=== PATIENT | female | born 1970 | race Caucasian/White ===

== ENCOUNTER → 2016-03-11 | Outpatient (CLI) | payer OTHER ==
[~2016-03-11] MED LIST: ACET-1487 PO; AZITTAB PO; FLUT0.15 NAE; GUAI100L PO; GUAI1LIQ7 PO; HYDR5SYP11 PO; LORA10TA5 PO; MULTTAB58 PO; PRED20TA PO; PRED50TA PO; TYLOTC500 PO
--- NOTE | 2016-03-11 15:48 | MAMMOGRAPHY REPORT ---
UNILATERAL RIGHT DIGITAL DIAGNOSTIC MAMMOGRAM TOMOSYNTHESIS AND TARGETED RIGHT ULTRASOUND: 03/11/2016 CLINICAL HISTORY: Callback from screening mammogram for right breast asymmetry. TECHNIQUE: Breast tomosynthesis in addition to standard 2D mammography was performed. Right CC and MLO 2-D and tomosynthesis images were obtained. COMPARISON: Comparison is made to exams dated: 02/28/2016 mammogram, 02/25/2015 mammogram, 4 mammogram, 02/26/2012 mammogram, and 02/03/2012 mammogram - [facility]. BREAST COMPOSITION: There are scattered areas of fibroglandular density in the right breast. FINDINGS: The previously described asymmetry seen within the right medial breast effaces on the add itional spot compression views, and has the appearance of normal overlapping fibroglandular tissue o n the additional views. Lobulated circumscribed 9 mm mass seen within the right lower inner quadran t more anteriorly is stable compared to prior exams including the 2011 exam. Targeted ultrasound was performed of the right medial breast in the region of the mammographic asymm etry. No suspicious masses or other suspicious sonographic abnormalities are evident. No correlate for the mammographic asymmetry is seen. A 7 x 7 mm circumscribed anechoic mass with thin internal septations is noted in the right breast at 5:00, 2 cm from the nipple, consistent with a benign cyst . This correlates with the stable mammographic mass. IMPRESSION: ACR BI-RADS CATEGORY 2: BENIGN, TARGETED ULTRASOUND ACR BI-RADS CATEGORY 2: BENIGN The right medial breast asymmetry effaces on the additional views, without corresponding sonographic abnormality evident. The asymmetry is benign and compatible with normal overlapping fibroglandular tissue. There is no mammographic or targeted sonographic evidence of malignancy. A 1 year screenin g mammogram is recommended. The patient has been verbally notified of the results. Approximately 10% of breast cancers are not detected with mammography. A negative mammographic repor t should not delay biopsy if a clinically suggestive mass is present. Citlalli Harris M.D. /:03/11/2016 14:37:54 Fish Cutter: Citlalli Harris MD, [facility] letter sent: Normal /2 BI-RADS Code: ACR BI-RADS Category 2: Benign Ultrasound BI-RADS: ACR BI-RADS Category 2: Benign
== END | disposition home or self-care (01) ==
LOC: C.MAMM 14:13
PROVIDERS: ATTEND Family Medicine
DX: R92.8 Other abnormal and inconclusive findings on diagnostic imaging of breast (principal)

== ENCOUNTER 2016-03-15 22:15 | Emergency (ER) | payer OTHER ==
[~2016-03-15] VITALS: Ht 160 cm; Wt 80.7 kg
[~2016-03-15 22:15] MED LIST changes: -ACET-1487 PO; -AZITTAB PO; -FLUT0.15 NAE; -GUAI1LIQ7 PO; -HYDR5SYP11 PO; -LORA10TA5 PO; -MULTTAB58 PO; -PRED20TA PO; -PRED50TA PO; -TYLOTC500 PO
[2016-03-15 22:18] VITALS: TEMP 37.5; Ht 160 cm; Wt 80.7 kg
[2016-03-15] MEDS ORDERED: ALBUT/IPRATROP 3MG/0.5MG NEB 3 ML VIAL INH STA (22:39)
[2016-03-15] MEDS ORDERED: SODIUM CHLORIDE 0.9% 1000ML 1,000 ML IV STA (22:39)
[2016-03-15] MEDS ORDERED: ACETAMINOPHEN 325 MG TAB PO STA (22:39)
[2016-03-15] MEDS ORDERED: KETOROLAC TROMETHAMINE 30 MG/ML VIAL IV STA (22:52)
--- NOTE | 2016-03-15 22:57 | EMERGENCY ROOM VISIT NOTE ---
History Report prepared by Pravin: Chan Bermudez Under the Supervision of: Dr. Rachel Metz M.D. First contact with patient: 22:39 Chief Complaint: CARDIAC ASSESSMENT Stated Complaint: BAD COLD, CHEST PAIN History of Present Illness The patient is a 46 year old female who presents to the Emergency Room with complaints of worsening chest pain and flu-like symptoms that began several days prior to arrival. The patient states that she has had pneumonia in the past and feels as though this is a similar episode. She also has a persistent cough that has caused pain in her throat and abdomen. The patient also notes having a fever of 101 today. She is a smoker that smokes 0.5 packs per day, and has has a flu shot this year. She took a dosage of Mucinex at 2030 this evening. 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 A total of 10 systems reviewed and were otherwise negative. Past Medical & Surgical Surgical Problems: (1) History of total hip replacement Pneumonia Family History Cancer Diabetes mellitus Heart disease Hypertension Social History Smoking Status: Current Every Day Smoker Alcohol Use: none Marital Status: single Occupation Status: disabled Current/Historical Medications Scheduled Multiple Vitamin (Multivitamin), 1 TAB PO DAILY Prednisone (Prednisone), 40 MG PO DAILY Scheduled PRN Acetaminophen (Tylenol), 1,000 MG PO Q6H PRN for Pain or Fever Acetaminophen (Tylenol Arthritis Ext Rel), 1,300 MG PO UD PRN for Pain Fluticasone Propionate (Nasal) (Flonase Allergy Relief), 2 SPRAYS KINGA DAILY PRN for Allergy Symptoms Guaifenesin (Mucinex Chest Congestion), 1 DOSE PO UD PRN for Congestion Loratadine (Claritin), 10 MG PO DAILY PRN for Nasal Congestion Allergies Coded Allergies: No Known Allergies (Verified , 11/07/03) Physical Exam Vital Signs Date Time Temp Pulse Resp B/P Pulse Ox O2 Delivery O2 Flow Rate FiO2 03/16/16 01:10 71 18 131/81 96 03/16/16 00:17 79 18 147/91 95 Room Air 03/15/16 23:16 85 03/15/16 22:18 37.5 89 24 181/86 95 Room Air Physical Exam Vital signs reviewed. General: Dry cough on exam. HEENT: No scleral icterus, PERRLA, neck supple. Atraumatic. Cardiovascular: Regular rate and rhythm, no extra sounds. Pulmonary: Wheezing throughout lung finley bilaterally, normal work of breathing. Abdomen: Soft, nontender, nondistended, positive bowel sounds. Musculoskeletal: Atraumatic, no peripheral edema. Neurologic: Patient awake alert and oriented x 3, full strength in all 4 extremities. Cranial nerves 2 through 12 grossly intact. Skin: Warm, dry, no rash Medical Decision & Procedures ER Provider Diagnostic Interpretation: X-ray results as stated below per my interpretation and radiologist interpretation. Other radiology results as stated below per my review and radiologist interpretation: SINGLE VIEW CHEST CLINICAL HISTORY: Cough and fever FINDINGS: An AP, portable, upright chest radiograph is compared to study dated 04/30/2014. The examination is degraded by portable technique and patient rotation. The heart is top normal for projection. There is mild atherosclerotic calcification of the thoracic aorta. Chronic interstitial thickening is similar to previous. No airspace consolidation or pleural effusion is identified. No pneumothorax is seen. The skeletal structures appear osteopenic. The bony thorax is grossly intact. IMPRESSION: No acute cardiopulmonary abnormality. Electronically signed by: Andres Pappas M.D. 03/15/2016 11:00 PM Dictated Date/Time: 03/15/2016 10:58 PM Laboratory Results 03/15/16 23:10 Red Blood Count 3.89, Mean Corpuscular Volume 94.1, Mean Corpuscular Hemoglobin 32.1, Mean Corpuscular Hemoglobin Concent 34.2, Mean Platelet Volume 9.9, Neutrophils (%) (Auto) 66.7, Lymphocytes (%) (Auto) 25.1, Monocytes (%) (Auto) 7.6, Eosinophils (%) (Auto) 0.2, Basophils (%) (Auto) 0.3, Neutrophils # (Auto) 5.76, Lymphocytes # (Auto) 2.17, Monocytes # (Auto) 0.66, Eosinophils # (Auto) 0.02, Basophils # (Auto) 0.03 03/15/16 23:10 Test 03/15/16 23:10 03/15/16 23:15 White Blood Count 8.65 K/uL (4.8-10.8) Red Blood Count 3.89 M/uL (4.2-5.4) Hemoglobin 12.5 g/dL (12.0-16.0) Hematocrit 36.6 % (37-47) Mean Corpuscular Volume 94.1 fL (80-100) Mean Corpuscular Hemoglobin 32.1 pg (25-34) Mean Corpuscular Hemoglobin Concent 34.2 g/dl (32-36) Platelet Count 264 K/uL (130-400) Mean Platelet Volume 9.9 fL (7.4-10.4) Neutrophils (%) (Auto) 66.7 % Lymphocytes (%) (Auto) 25.1 % Monocytes (%) (Auto) 7.6 % Eosinophils (%) (Auto) 0.2 % Basophils (%) (Auto) 0.3 % Neutrophils # (Auto) 5.76 K/uL (1.4-6.5) Lymphocytes # (Auto) 2.17 K/uL (1.2-3.4) Monocytes # (Auto) 0.66 K/uL (0.11-0.59) Eosinophils # (Auto) 0.02 K/uL (0-0.5) Basophils # (Auto) 0.03 K/uL (0-0.2) RDW Standard Deviation 43.1 fL (36.4-46.3) RDW Coefficient of Variation 12.7 % (11.5-14.5) Immature Granulocyte % (Auto) 0.1 % Immature Granulocyte # (Auto) 0.01 K/uL (0.00-0.02) Anion Gap 10.0 mmol/L (3-11) Est Creatinine Clear Calc Drug Dose 94.5 ml/min Estimated GFR () 111.8 Estimated GFR (Non- 96.5 BUN/Creatinine Ratio 20.4 (10-20) Calcium Level 8.7 mg/dl (8.5-10.1) Total Bilirubin 0.6 mg/dl (0.2-1) Direct Bilirubin 0.1 mg/dl (0-0.2) Aspartate Amino Transf (AST/SGOT) 15 U/L (15-37) Alanine Aminotransferase (ALT/SGPT) 18 U/L (12-78) Alkaline Phosphatase 110 U/L (45-117) Total Protein 7.4 gm/dl (6.4-8.2) Albumin 3.7 gm/dl (3.4-5.0) Influenza Type A Antigen Neg for Influ A (NEG) Influenza Type B Antigen Neg for Influ B (NEG) Laboratory results per my review. Medications Administered Medications (Trade) Dose Ordered Sig/Claudia Route Start Time Stop Time Status Last Admin Dose Admin Albuterol/ Ipratropium 3 ml 3 ml NOW STAT INH 03/15/16 22:39 03/15/16 22:41 DC 03/15/16 22:56 3 ML Sodium Chloride (Nss 1000ml) 1,000 ml @ 200 mls/hr Q5H STAT IV 03/15/16 22:39 03/16/16 01:32 DC 03/15/16 22:39 200 MLS/HR Ketorolac Tromethamine (Toradol Inj) 30 mg NOW STAT IV 03/15/16 22:52 03/15/16 22:53 DC 03/15/16 23:28 30 MG Methylprednisolone Sodium Succinate (Solu-Medrol IV) 125 mg NOW STAT IV 03/16/16 00:24 03/16/16 00:25 DC 03/16/16 00:40 125 MG Albuterol (Ventolin Hfa Inhaler) 2 puffs NOW ONCE INH 03/16/16 00:30 03/16/16 00:31 DC 03/16/16 00:40 2 PUFFS ED Course 2238: Past medical records reviewed. The patient was evaluated in room B11. A complete history and physical examination was performed. 2239: Ordered Sodium Chloride 1000 mL @ 200 mL/hr IV, Acetaminophen 650 mg PO, Albuterol 3 mL INH. 2252: Ordered Toradol 30 mg IV. 0024: Ordered Frances-Medrol 125 mg IV. 0030: Ordered Albuterol 2 puffs INH. 0102: Upon reevaluation, the patient appeared to have improvement of his symptoms. I discussed findings with him. He verbalized agreement of the treatment plan. The patient was discharged home. Medical Decision Differential diagnosis: Etiologies such as viral syndrome, otitis, pharyngitis, pneumonia, influenza, meningitis, urinary tract infection, sepsis, bacteremia, as well as others were entertained. This patient was evaluated and appeared to be in no significant distress. IV access was obtained and laboratory work was drawn. Patient was placed on the irish moss operator and found to be in a normal sinus rhythm. Patient was given a DuoNeb treatment. She was medicated with IV Toradol for her discomfort, IV Solu -Medrol for the wheezing. Chest x-ray reveals no evidence of focal lung consolidation or failure. Patient was feeling significantly improved. She was discharged to follow-up with her primary care provider. She will return to the ER for worsening of symptoms or any medical concerns. Impression Primary Impression: Febrile illness, acute Additional Impression: Reactive airway disease Scribe Attestation The scribe's documentation has been prepared under my direction and personally reviewed by me in its entirety. I confirm that the note above accurately reflects all work, treatment, procedures, and medical decision making performed by me. Departure Information Dispostion Home / Self-Care Prescriptions Prednisone (Prednisone) 20 Mg Tab 40 MG PO DAILY, #8 TAB Prov: Rachel Metz M.D. 03/16/16 Referrals No Doctor, Assigned (PCP) Forms IMPORTANT VISIT INFORMATION Patient Instructions [facility] Additional Instructions Diagnosis: Febrile illness, reactive airway disease Tylenol 650 mg every 6 hours as needed for pain or fever. Prednisone 40 mg daily for 4 more days. Albuterol 2 puffs every 4 hours as needed for wheezing or cough. Follow-up with your physician within 2 days for reevaluation. Return to the ER for worsening of symptoms or any medical concerns. Problem Qualifiers Additional Impression: Reactive airway disease Asthma severity: mild persistent Asthma complication type: with acute exacerbation Qualified Codes: J45.31 - Mild persistent asthma with (acute) exacerbation
--- NOTE | 2016-03-15 23:02 | DIAGNOSTIC IMAGING REPORT ---
SINGLE VIEW CHEST CLINICAL HISTORY: Cough and fever FINDINGS: An AP, portable, upright chest radiograph is compared to study dated 04/30/2014. The examination is degraded by portable technique and patient rotation. The heart is top normal for projection. There is mild atherosclerotic calcification of the thoracic aorta. Chronic interstitial thickening is similar to previous. No airspace consolidation or pleural effusion is identified. No pneumothorax is seen. The skeletal structures appear osteopenic. The bony thorax is grossly intact. IMPRESSION: No acute cardiopulmonary abnormality. Electronically signed by: Andres Pappas M.D. 03/15/2016 11:00 PM Dictated Date/Time: 03/15/2016 10:58 PM
[2016-03-15 23:26] LABS: BASO % 0.3 %; BASO ABS # 0.03 K/uL (0-0.2); COMPLETE YES; EOS % 0.2 %; HEMATOCRIT 36.6 % (37-47); IG% 0.1 %; LYMPH % 25.1 %; LYMPH ABS # 2.17 K/uL (1.2-3.4); MEAN CELL VOLUME 94.1 fL (80-100); MEAN CORPUSCULAR HEMOGLOBIN 32.1 pg (25-34); MEAN CORPUSCULAR HGB CONC 34.2 g/dl (32-36); MEAN PLATELET VOLUME 9.9 fL (7.4-10.4); MONO % 7.6 %; NEUT % 66.7 %; PLATELET COUNT 264 K/uL (130-400); RED BLOOD COUNT 3.89 M/uL (4.2-5.4); WHITE BLOOD COUNT 8.65 K/uL (4.8-10.8)
[2016-03-15 23:50] LABS: BUN/CREATININE RATIO 20.4 (10-20); CALCIUM 8.7 mg/dl (8.5-10.1); CREATININE 0.74 mg/dl (0.60-1.20); POTASSIUM 3.9 mmol/L (3.5-5.1)
[2016-03-16] MEDS ORDERED: METHYLPREDNISOLONE 125 MG VIAL IV STA (00:24)
[2016-03-16] MEDS ORDERED: ALBUTEROL HFA 8 GM INHALER INH ONE (00:30)
[2016-03-16] MEDS ORDERED: PRED20TA PO (01:00)
[2016-03-16 01:10] VITALS: BP 131/81; PULSE 71; O2SAT 96
[2016-09-27] MEDS ORDERED: LORA10TA5 PO (14:59)
[2016-09-27] MEDS ORDERED: MULTTAB58 PO (14:59)
[2016-09-27] MEDS ORDERED: TYLOTC500 PO (14:59)
[2016-09-27] MEDS ORDERED: ACET-1487 PO (14:59)
== END 2016-03-16 01:11 | disposition home or self-care (01) ==
LOC: C.EDB 22:16
DX: R50.9 Fever, unspecified (principal); J45.31 Mild persistent asthma with (acute) exacerbation; F17.210 Nicotine dependence, cigarettes, uncomplicated

== ENCOUNTER 2016-09-27 19:11 | Emergency (ER) | payer OTHER ==
[~2016-09-27] VITALS: Ht 157.5 cm; Wt 77.0 kg
[~2016-09-27 19:11] MED LIST changes: +ACET-1487 PO; -GUAI100L PO; +LORA10TA5 PO; +MULTTAB58 PO; +TYLOTC500 PO
[2016-09-27 19:20] VITALS: TEMP 36.4; Ht 157.5 cm; Wt 77.0 kg
[2016-09-27] MEDS ORDERED: ALBUT/IPRATROP 3MG/0.5MG NEB 3 ML VIAL INH STA (19:33)
[2016-09-27] MEDS ORDERED: HYDROCODONE/HOMATROPINE SYRUP 5MG/1.5MG 5ML UDP PO STA (19:33)
[2016-09-27] MEDS ORDERED: DEXAMETHASONE SOD INJ 10 MG/ML VIAL IM ONE (19:45)
--- NOTE | 2016-09-27 20:12 | DIAGNOSTIC IMAGING REPORT ---
CHEST 2 VIEWS ROUTINE CLINICAL HISTORY: cough x 1 week dyspnea COMPARISON STUDY: 03/15/2016 FINDINGS: The bones soft tissues and hemidiaphragms are normal. The cardiomediastinal silhouette is normal. The lungs are clear. The pulmonary vasculature is normal. IMPRESSION: Negative chest. The above report was generated using voice recognition software. It may contain grammatical, syntax or spelling errors. Electronically signed by: Talon Cortes M.D. 09/27/2016 8:11 PM Dictated Date/Time: 09/27/2016 8:10 PM
[2016-09-27] MEDS ORDERED: HYCODAN 60ML BOTTLE HOMEPACK PO ONE (20:30)
[2016-09-27] MEDS ORDERED: PRED50TA PO (20:33)
[2016-09-27] MEDS ORDERED: AZITTAB PO (20:33)
[2016-09-27] MEDS ORDERED: HYDR5SYP11 PO (20:33)
--- NOTE | 2016-09-27 20:36 | EMERGENCY ROOM VISIT NOTE ---
ED Visit Note First contact with patient: 19:23 CHIEF COMPLAINT: Cough and upper respiratory symptoms 1 week HISTORY OF PRESENT ILLNESS: Patient is a 46-year-old white female who presents to the emergency department for evaluation of a persistent cough 1 week. She states that she has been sick with a "bug" one week ago. She reports stuffy, runny nose, dry, nonproductive cough, body and muscle aches and a fever of 101.6 F maximum. Fever broke after a few days, she is now left with a deep, productive cough. She was seen at [facility] about 3 days ago and given an albuterol inhaler which she has been taking 2 puffs of every 4 hours. She forgot to use it this afternoon however. She is also using a cough medication. She reports the cough is productive of sometimes clear, sometimes greenish yellow sputum. She was told to have a chest x-ray if her symptoms are not improving. Her chest feels tight, but she does not have any pain. She reports that she was around her cousin who accompanies her today, who was also sick with similar symptoms. The patient is a smoker. She does not have a history of asthma, but has had bronchitis and pneumonia in the past. REVIEW OF SYSTEMS: Review of systems as per HPI. All other systems reviewed were negative. 10 systems reviewed. PMH: Electronic medical records are reviewed and summarized as above/below. See Problem List. SOCIAL HISTORY: Patient lives at home. She is disabled due to her RA. She smokes 10 cigarettes daily, drinks alcohol socially. PHYSICAL EXAM: Vital Signs: Reviewed Nurse's notes. Temperature 36.4C orally. Oxygen saturation 99% on room air. MENTAL STATUS: Well-appearing 46-year-old white female who is awake and alert and in no acute distress. She is able speak in full sentences. No conversational dyspnea. HEAD: Atraumatic, without temporal or scalp tenderness. EYES: PERRL, EOMI, no discharge or injection. EARS: Tympanic membranes intact, not inflamed, have normal contour. External canals clear. NOSE: Nares patent, turbinates edematous and boggy with clear rhinorrhea. MOUTH: Mucous membranes moist, no lesions, tongue and gums appear normal. THROAT: No pharyngeal injection, exudates, or tonsillar hypertrophy. Airway is patent. NECK: Supple, nontender, no lymphadenopathy. HEART: Regular rate and rhythm without murmurs, ectopy, gallops, or rubs. LUNGS: Clear to auscultation and breath sounds equal, no wheezes, rales, or rhonchi. SKIN: Normal. NEUROLOGICAL: Sensory and motor functions grossly intact. Normal gait. EMERGENCY DEPARTMENT COURSE: The patient was seen and evaluated as above. Her old records are reviewed. Patient was given a DuoNeb treatment, Hycodan 10 mL' s orally and Decadron 10 mg IM. Chest x-ray was obtained and was unremarkable. Patient was made aware of the results of her chest x-ray. I discussed with her that I suspected that her illness was still likely part of the viral course. Continued supportive care measures were discussed. Patient was advised to continue the inhaler, she'll be placed on a short course of oral prednisone, and was given a prescription for Hycodan. She was also given a prescription for a Z-Zeb that she can start in a few days if she is not feeling any better. She was advised to follow-up with her PCP if her symptoms are not improving and to return to the emergency department for worsening symptoms. Differential diagnoses includes URI, bronchitis, pneumonia, reactive airway disease, asthma exacerbation, allergic rhinitis, sinusitis, otitis media, among others. Medication reconciliation: I attest that I have personally reviewed the patient' s current medication list. Blood pressure screening: Patient was found to have an elevated blood pressure and was referred to their primary doctor for recheck and further treatment. CHEST 2 VIEWS ROUTINE CLINICAL HISTORY: cough x 1 week dyspnea COMPARISON STUDY: 03/15/2016 FINDINGS: The bones soft tissues and hemidiaphragms are normal. The cardiomediastinal silhouette is normal. The lungs are clear. The pulmonary vasculature is normal. IMPRESSION: Negative chest. Problem List Medical Problems: (1) Febrile illness, acute Status: Resolved (2) Febrile illness, acute Status: Resolved (3) Pneumonia Status: Resolved (4) Reactive airway disease Status: Resolved (5) Reactive airway disease Status: Resolved (6) Rheumatoid Arthritis Status: Chronic (7) SOB (shortness of breath) Status: Resolved Surgical Problems: (1) History of total hip replacement Status: Resolved (2) Knee Joint Replacement Status Status: Resolved Current/Historical Medications Scheduled Azithromycin (Zithromax Z-Zeb), 0 PO UD Multiple Vitamin (Multivitamin), 1 TAB PO DAILY Prednisone (Prednisone), 50 MG PO DAILY Scheduled PRN Acetaminophen (Tylenol), 1,000 MG PO Q6H PRN for Pain or Fever Acetaminophen (Tylenol Arthritis Ext Rel), 1,300 MG PO UD PRN for Pain Fluticasone Propionate (Nasal) (Flonase Allergy Relief), 2 SPRAYS KINGA DAILY PRN for Allergy Symptoms Guaifenesin (Mucinex Chest Congestion), 1 DOSE PO UD PRN for Congestion Hydrocodone W/ Homatropine (Hycodan 5/1.5MG 5 Ml), 10 ML PO Q4H PRN for Cough Loratadine (Claritin), 10 MG PO DAILY PRN for Nasal Congestion Allergies Coded Allergies: Marion (Verified Allergy, Intermediate, Hives, 09/27/16) Vital Signs Date Time Temp Pulse Resp B/P (MAP) Pulse Ox O2 Delivery O2 Flow Rate FiO2 09/27/16 20:44 62 22 143/91 98 Room Air 09/27/16 19:23 99 Room Air 09/27/16 19:20 36.4 78 16 198/103 99 Room Air Medications Administered Medications (Trade) Dose Ordered Sig/Claudia Route Start Time Stop Time Status Last Admin Dose Admin Dexamethasone Sodium Phosphate (Decadron Inj) 10 mg NOW ONCE IM 09/27/16 19:45 09/27/16 19:46 DC 09/27/16 19:42 10 MG Hydrocodone Bit/ Homatropine Methylb (Hycodan Syrup) 10 ml NOW STAT PO 09/27/16 19:33 09/27/16 19:36 DC 09/27/16 19:41 10 ML Albuterol/ Ipratropium (Duoneb) 3 ml NOW STAT INH 09/27/16 19:33 09/27/16 19:36 DC 09/27/16 19:42 3 ML Hydrocodone Bit/ Homatropine Methylb (Hycodan Elix Homepack 5/1.5MG/ 5ML) 1 homepack UD ONCE PO 09/27/16 20:30 09/27/16 20:31 DC 09/27/16 20:36 1 HOMEPACK Departure Information Impression Primary Impression: Upper respiratory infection Prescriptions Azithromycin (ZITHROMAX Z-ZEB) 250 Mg Tab 0 PO UD, #1 PKT 2 TABS DAY 1, THEN 1 TAB DAILY FOR 4 DAYS Prov: Andreina Rosen PA 09/27/16 Hydrocodone W/ Homatropine (HYCODAN 5/1.5MG 5 ML) 1 Syp Syp 10 ML PO Q4H Y for Cough, #100 ML For Initial Treatment Prov: Andreina Rosen PA 09/27/16 Prednisone (Prednisone) 50 Mg Tab 50 MG PO DAILY for 4 Days, #4 TAB Prov: Andreina Rosen PA 09/27/16 Referrals Lopez Chery M.D. (MEDICAL) (PCP) Patient Instructions My [facility] Additional Instructions DO NOT drive, drink alcohol, operate machinery, or perform dangerous activities today. You were given medications in the ER that can affect your ability to safely function or operate a vehicle. Prednisone 50mg: Once daily until the prescription is finished. It is best to take this earlier in the day as some patients note occasional difficulty falling asleep when taken in the late evening. Acetaminophen(Tylenol) may be used for fever or pain. Use 1000mg every six hours as needed. Avoid using more than 3000mg in a 24 hour period. (AND/OR) Ibuprofen(Motrin, Advil) may be used for fever or pain. Use 600mg every six hours as needed. Take with food. Avoid using more than 2400mg in a 24 hour period. Do not use 2400mg per day for more than three consecutive days without physician direction. Prolonged inappropriate use can lead to stomach upset or ulcers. Pseudoephedrine(Sudaphed): 30-60mg every 6 hours as needed for nasal congestion. Do not take this with other stimulant products or supplements. Guaifenesin (Mucinex) : Take 1200 mg every 12 hours as needed for nasal/chest congestion, to help thin secretions. Albuterol Inhaler: Take 2 puffs every 4 hours for 5-7 days, then as needed. Hycodan cough syrup: use 5-10 mL every six hours only as needed for severe cough. It is best for use at night since it will cause sedation. This is a narcotic medication. Avoid alcohol, operating machinery or dangerous equipment , working on ladders or roofs, DRIVING, or situations where being under the influence may be dangerous. It is recommended to use an [id number] stool softener such as Colace, 100mg twice daily while taking this medication to avoid constipation. Rest and drink plenty of fluids. Wash your hands after nose blowing, sneezing, or coughing. Most germs are spread through contact, therefore improper hygiene may result in your close contacts and loved ones becoming ill just like you. Avoid strenuous activity until your symptoms resolve and your breathing returns to normal. Continue current medications. Return to the ER for severe headache, neck stiffness, chest pain, difficulty breathing, fevers, vomiting, worsening of your condition, or as needed. Follow up with your primary physician this week for a recheck of your current condition. If your symptoms are not improved by Wednesday or , fill and take the prescription for Azithromycin(Zithromax) 250mg: Take one a day for 4 additional days. All antibiotics can cause diarrhea. If this occurs and you feel worse or it does not resolve in 1-2 days follow up with your doctor or return to the Emergency Department as this could be signs of serious underlying problems. Any medication can cause an allergic reaction, stop the pills immediately and return to the ER for rash, hives, breathing difficulties, or swelling.
[2016-09-27 20:44] VITALS: BP 143/91; PULSE 62; O2SAT 98
[2016-09-27] MEDS ORDERED: FLUT0.15 NAE (23:01)
[2016-09-27] MEDS ORDERED: GUAI1LIQ7 PO (23:01)
== END 2016-09-27 20:46 | disposition home or self-care (01) ==
LOC: C.EDB 19:12
DX: J06.9 Acute upper respiratory infection, unspecified (principal); R05 Cough; R50.9 Fever, unspecified; M06.9 Rheumatoid arthritis, unspecified; J45.909 Unspecified asthma, uncomplicated; Z79.899 Other long term (current) drug therapy; Z87.01 Personal history of pneumonia (recurrent); F17.200 Nicotine dependence, unspecified, uncomplicated

== ENCOUNTER → 2017-03-30 | Outpatient (CLI) | payer OTHER ==
[~2017-03-30] MED LIST changes: +FLUT0.15 NAE; +GUAI1LIQ7 PO; -LORA10TA5 PO; +LORA10TA6 PO
--- NOTE | 2017-03-31 15:22 | MAMMOGRAPHY REPORT ---
BILATERAL DIGITAL SCREENING MAMMOGRAM TOMOSYNTHESIS WITH CAD: 03/30/2017 CLINICAL HISTORY: Routine screening. Patient has no complaints. TECHNIQUE: Breast tomosynthesis in addition to standard 2D mammography was performed. Current study was also evaluated with a Computer Aided Detection (CAD) system. COMPARISON: Comparison is made to exams dated: 03/11/2016 ultrasound, 02/28/2016 mammogram, 5 mammogram, 02/05/2014 mammogram, 02/26/2012 mammogram, and 02/03/2012 mammogram - [facility]. BREAST COMPOSITION: There are scattered areas of fibroglandular density in both breasts. FINDINGS: No suspicious masses, calcifications, or areas of architectural distortion are noted in ei ther breast. There has been no significant interval change compared to prior exams. IMPRESSION: ACR BI-RADS CATEGORY 1: NEGATIVE There is no mammographic evidence of malignancy. A 1 year screening mammogram is recommended. The pa tient will receive written notification of the results. Approximately 10% of breast cancers are not detected with mammography. A negative mammographic report should not delay biopsy if a clinically suggestive mass is present. Citlalli Harris M.D. ah/:03/30/2017 15:06:03 Business Asst: Stephania ALVARADO(Nikolas)([place]), [facility] letter sent: Normal 1/2 BI-RADS Code: ACR BI-RADS Category 1: Negative
== END | disposition home or self-care (01) ==
LOC: C.MAMM 14:36
PROVIDERS: ATTEND Physician Assistant
DX: Z12.31 Encounter for screening mammogram for malignant neoplasm of breast (principal)

== ENCOUNTER 2017-04-16 17:13 | Emergency (ER) | payer OTHER ==
[~2017-04-16] VITALS: Ht 158.8 cm; Wt 77.7 kg
[~2017-04-16 17:13] MED LIST changes: -FLUT0.15 NAE; -GUAI1LIQ7 PO
[2017-04-16 17:16] VITALS: TEMP 36.8; Ht 158.8 cm; Wt 77.7 kg
[2017-04-16] MEDS ORDERED: SODIUM CHLORIDE 0.9% 1000ML 1,000 ML IV STA (20:18)
[2017-04-16] MEDS ORDERED: SODIUM CHLORIDE 0.9% 500ML 500 ML IV STA (20:30)
--- NOTE | 2017-04-16 20:47 | DIAGNOSTIC IMAGING REPORT ---
CHEST ONE VIEW PORTABLE CLINICAL HISTORY: Weakness. COMPARISON STUDY: Chest radiograph September 27, 2016. FINDINGS: Lung volumes are normal. No pneumothorax or pleural effusion is present. There is no consolidation. There is no evidence for pulmonary edema. Cardiomediastinal silhouette is stable. IMPRESSION: No acute cardiopulmonary findings. Electronically signed by: Michi Malagon M.D. 04/16/2017 8:46 PM Dictated Date/Time: 04/16/2017 8:45 PM
[2017-04-16 21:11] LABS: BASO % 0.2 %; BASO ABS # 0.02 K/uL (0-0.2); EOS % 1.2 %; EOS ABS # 0.14 K/uL (0-0.5); HEMATOCRIT 38.8 % (37-47); HEMOGLOBIN 13.5 g/dL (12.0-16.0); IG# 0.03 K/uL (0.00-0.02); LYMPH % 31.8 %; LYMPH ABS # 3.79 K/uL (1.2-3.4); MEAN CELL VOLUME 94.4 fL (80-100); MEAN CORPUSCULAR HEMOGLOBIN 32.8 pg (25-34); MEAN CORPUSCULAR HGB CONC 34.8 g/dl (32-36); MEAN PLATELET VOLUME 9.4 fL (7.4-10.4); MONO % 4.6 %; MONO ABS # 0.55 K/uL (0.11-0.59); NEUT % 61.9 %; PLATELET COUNT 343 K/uL (130-400); RED CELL DISTRIBUTION WIDTH CV 13.9 % (11.5-14.5); RED CELL DISTRIBUTION WIDTH SD 47.6 fL (36.4-46.3); WHITE BLOOD COUNT 11.93 K/uL (4.8-10.8)
[2017-04-16] MEDS ORDERED: MELO15TA10 PO (21:26)
[2017-04-16] MEDS ORDERED: CHOL400C7 PO (21:26)
[2017-04-16] MEDS ORDERED: METH2.5T PO (21:26)
[2017-04-16] MEDS ORDERED: PRED-301 PO (21:26)
[2017-04-16] MEDS ORDERED: FLV1 PO (21:26)
[2017-04-16 21:34] LABS: ALBUMIN 3.9 gm/dl (3.4-5.0); ALT/SGPT 46 U/L (12-78); BLOOD UREA NITROGEN 15 mg/dl (7-18); CALCIUM 9.3 mg/dl (8.5-10.1); CARBON DIOXIDE 26 mmol/L (21-32); CREATININE 0.77 mg/dl (0.60-1.20); GLUCOSE 116 mg/dl (70-99); LIPASE 71 U/L (73-393); POTASSIUM 3.4 mmol/L (3.5-5.1); SODIUM 139 mmol/L (136-145)
[2017-04-16 21:43] LABS: ALKALINE PHOSPHATASE 94 U/L (45-117); AST/SGOT 27 U/L (15-37); CKMB 0.6 ng/ml (0.5-3.6); TOTAL PROTEIN 7.6 gm/dl (6.4-8.2)
[2017-04-16] MEDS ORDERED: OPTIRAY 320 IV PRN (21:45)
--- NOTE | 2017-04-16 22:22 | DIAGNOSTIC IMAGING REPORT ---
CT OF THE ABDOMEN AND PELVIS WITH CONTRAST CLINICAL HISTORY: Lower abdominal pain and diarrhea. COMPARISON STUDY: None. TECHNIQUE: Following IV administration of 112 mL of Optiray-320, axial images of the abdomen and pelvis were obtained from the lung bases to the proximal femurs. Images were reviewed in the axial, sagittal, and coronal planes. IV contrast was administered without complication. A dose lowering technique was utilized adhering to the principles of ALARA. CT DOSE: 425.72 mGy.cm FINDINGS: The liver, spleen, adrenal glands, kidneys and pancreas are normal. There is no biliary or pancreatic ductal dilatation. The caliber and wall thickness of small and large bowel are normal. The appendix is normal. This colonic diverticulosis without evidence for acute diverticulitis. Images of the pelvis are degraded by streak artifact from a left hip arthroplasty. A 5.5 cm right uterine lesion likely reflects a fibroid. The ovaries are not enlarged. No pneumatosis, free air or portal venous gas is present. There is no ascites or lymphadenopathy. There are no suspicious osseous lesions. IMPRESSION: 1. No acute process within the abdomen or pelvis. 2. Normal appendix. No bowel obstruction. 3. Colonic diverticulosis without evidence for acute diverticulitis. 4. Suspected 5.5 cm right uterine fibroid. Electronically signed by: Michi Malagon M.D. 04/16/2017 10:21 PM Dictated Date/Time: 04/16/2017 10:16 PM
[2017-04-16] MEDS ORDERED: GUAI1LIQ7 PO (23:01)
[2017-04-16] MEDS ORDERED: FLUT0.15 NAE (23:01)
[2017-04-17 00:47] VITALS: BP 158/98; PULSE 76; O2SAT 100
--- NOTE | 2017-04-17 01:52 | EMERGENCY ROOM VISIT NOTE ---
History Report prepared by Pravin: Alex Cleaning Under the Supervision of: Dr. Edson Madrigal M.D. First contact with patient: 20:18 Chief Complaint: PALPITATIONS Stated Complaint: DIARRHEA, HEART PALPITATIONS Nursing Triage Summary: Pt states, "I was accidentally taking methotrexate for arthritis every day for 6 days and I was supposed to take it once a week. I am experiencing diarrhea and heart palpitations." Mild SOB. Denies cp. History of Present Illness The patient is a 47 year old female who presents to the Emergency Room with complaints of persistent palpitations for two days. She reports a history of rheumatoid arthritis and was recently prescribed Methotrexate two weeks ago. She was supposed to be taking the medication, 6 pills at once, once a week, although has been taking it every day for six days. She was diagnosed with rheumatoid arthritis at 9 years old. She developed diarrhea April 09, 2017 and had it consistently for three days. She reports abdominal pain. She has a history of irritable bowel syndrome, though she does not feel this is the same. She reports emailing her PCP, though she had not called them regarding the medication. She stopped taking the methotrexate two days ago. She notes the diarrhea has improved, though she had 10 episodes April 14, 2017. She denies any use of antibiotics. She reports the palpitations have improved since she has been in the ED. She denies any new joint problems. She denies taking any blood thinners. She is taking Prednisone. She reports a tingling sensation on the right side of her head. She reports mild shortness of breath associated with the palpitations. Pt denies LOC, headache, fevers, chills, diaphoresis, visual changes, neck pain, chest pain, nausea, vomiting, back pain, melena, hematochezia, urinary symptoms, numbness, weakness, rash, or other complaints. Source of History: patient Onset: two days Position: other (global) Quality: other (palpitations) Timing: other (persistent) Associated Symptoms: + SOB (mild), + abdominal pain, + diarrhea Note: She reports a tingling sensation. Review of Systems See HPI for pertinent positives and negatives. A total of ten systems were reviewed and were otherwise negative. Past Medical & Surgical Medical Problems: (1) Febrile illness, acute (2) Febrile illness, acute (3) Pneumonia (4) Reactive airway disease (5) Reactive airway disease (6) Rheumatoid Arthritis (7) Rheumatoid arthritis (8) SOB (shortness of breath) Surgical Problems: (1) History of total hip replacement (2) History of total left hip replacement (3) History of total left knee replacement (4) History of total right knee replacement (5) Knee Joint Replacement Status Family History Cancer Diabetes mellitus Heart disease Hypertension Social History Smoking Status: Current Every Day Smoker (1/2 ppd) Alcohol Use: occasionally Marital Status: single Housing Status: lives with family Occupation Status: disabled Current/Historical Medications Scheduled Cholecalciferol (Vitamin D 400 Iu), 1,200 INTER.UNIT PO DAILY Folic Acid (Folic Acid), 1 MG PO DAILY Meloxicam (Mobic), 15 MG PO DAILY Methotrexate (Methotrexate), 15 MG PO WK Multiple Vitamin (Multivitamin), 1 TAB PO DAILY Prednisone (Prednisone), 5 MG PO DAILY Scheduled PRN Acetaminophen (Tylenol), 1,000 MG PO Q6H PRN for Pain or Fever Acetaminophen (Tylenol Arthritis Ext Rel), 1,300 MG PO UD PRN for Pain Fluticasone Propionate (Nasal) (Flonase Allergy Relief), 2 SPRAYS KINGA DAILY PRN for Allergy Symptoms Guaifenesin (Mucinex Chest Congestion), 1 DOSE PO UD PRN for Congestion Loratadine (Claritin), 10 MG PO DAILY PRN for Nasal Congestion Allergies Coded Allergies: [place] (Verified Allergy, Intermediate, Hives, 09/27/16) Physical Exam Vital Signs Date Time Temp Pulse Resp B/P (MAP) Pulse Ox O2 Delivery O2 Flow Rate FiO2 04/17/17 00:47 76 20 158/98 100 04/17/17 00:01 67 21 162/97 100 Room Air 04/16/17 23:31 68 16 152/93 99 Room Air 04/16/17 22:26 68 23 166/84 99 Room Air 04/16/17 21:31 74 22 148/101 98 Room Air 04/16/17 21:01 74 18 142/100 97 Room Air 04/16/17 20:55 Room Air 04/16/17 20:46 74 04/16/17 20:44 85 16 162/92 98 Room Air 04/16/17 17:16 36.8 84 18 181/92 99 Room Air Physical Exam GENERAL: Awake, alert, well-appearing, in no distress HENT: Normocephalic, atraumatic. Oropharynx unremarkable. EYES: Normal conjunctiva. Sclera non-icteric. NECK: Supple. No nuchal rigidity. FROM. No masses. RESPIRATORY: Clear to auscultation. No wheezes. CARDIAC: Normal rate. Normal rhythm. No murmurs. No rubs. Extremities warm and well perfused. Pulses equal. No JVD. GI: Soft, non-distended. Mild lower abdominal tenderness. No rebound or guarding. No masses. RECTAL: Deferred. MUSCULOSKELETAL: Atraumatic. Chest examination reveals no tenderness. The back is symmetrical on inspection without obvious abnormality. There is no CVA tenderness to palpation. No joint edema. Arthritic deformities of the hands. LOWER EXTREMITIES: Calves are equal size bilaterally and non-tender. No edema. No discoloration. NEURO: Normal sensorium. No sensory or motor deficits noted. SKIN: No rash or jaundice noted. Medical Decision & Procedures ER Provider Diagnostic Interpretation: Radiology results as stated below per my review and radiologist interpretation: CHEST ONE VIEW PORTABLE CLINICAL HISTORY: Weakness. COMPARISON STUDY: Chest radiograph September 27, 2016. FINDINGS: Lung volumes are normal. No pneumothorax or pleural effusion is present. There is no consolidation. There is no evidence for pulmonary edema. Cardiomediastinal silhouette is stable. IMPRESSION: No acute cardiopulmonary findings. Electronically signed by: Michi Malagon M.D. 04/16/2017 8:46 PM Dictated Date/Time: 04/16/2017 8:[address] OF THE ABDOMEN AND PELVIS WITH CONTRAST CLINICAL HISTORY: Lower abdominal pain and diarrhea. COMPARISON STUDY: None. TECHNIQUE: Following IV administration of 112 mL of Optiray-320, axial images of the abdomen and pelvis were obtained from the lung bases to the proximal femurs. Images were reviewed in the axial, sagittal, and coronal planes. IV contrast was administered without complication. A dose lowering technique was utilized adhering to the principles of ALARA. CT DOSE: 425.72 mGy.cm FINDINGS: The liver, spleen, adrenal glands, kidneys and pancreas are normal. There is no biliary or pancreatic ductal dilatation. The caliber and wall thickness of small and large bowel are normal. The appendix is normal. This colonic diverticulosis without evidence for acute diverticulitis. Images of the pelvis are degraded by streak artifact from a left hip arthroplasty. A 5.5 cm right uterine lesion likely reflects a fibroid. The ovaries are not enlarged. No pneumatosis, free air or portal venous gas is present. There is no ascites or lymphadenopathy. There are no suspicious osseous lesions. IMPRESSION: 1. No acute process within the abdomen or pelvis. 2. Normal appendix. No bowel obstruction. 3. Colonic diverticulosis without evidence for acute diverticulitis. 4. Suspected 5.5 cm right uterine fibroid. Electronically signed by: Michi Malagon M.D. 04/16/2017 10:21 PM Dictated Date/Time: 04/16/2017 10:16 PM Laboratory Results 04/16/17 20:50 Red Blood Count 4.11, Mean Corpuscular Volume 94.4, Mean Corpuscular Hemoglobin 32.8, Mean Corpuscular Hemoglobin Concent 34.8, Mean Platelet Volume 9.4, Neutrophils (%) (Auto) 61.9, Lymphocytes (%) (Auto) 31.8, Monocytes (%) (Auto) 4.6, Eosinophils (%) (Auto) 1.2, Basophils (%) (Auto) 0.2, Neutrophils # (Auto) 7.40, Lymphocytes # (Auto) 3.79, Monocytes # (Auto) 0.55, Eosinophils # (Auto) 0.14, Basophils # (Auto) 0.02 04/16/17 20:50 Test 04/16/17 20:50 04/16/17 21:39 White Blood Count 11.93 K/uL (4.8-10.8) Red Blood Count 4.11 M/uL (4.2-5.4) Hemoglobin 13.5 g/dL (12.0-16.0) Hematocrit 38.8 % (37-47) Mean Corpuscular Volume 94.4 fL (80-100) Mean Corpuscular Hemoglobin 32.8 pg (25-34) Mean Corpuscular Hemoglobin Concent 34.8 g/dl (32-36) Platelet Count 343 K/uL (130-400) Mean Platelet Volume 9.4 fL (7.4-10.4) Neutrophils (%) (Auto) 61.9 % Lymphocytes (%) (Auto) 31.8 % Monocytes (%) (Auto) 4.6 % Eosinophils (%) (Auto) 1.2 % Basophils (%) (Auto) 0.2 % Neutrophils # (Auto) 7.40 K/uL (1.4-6.5) Lymphocytes # (Auto) 3.79 K/uL (1.2-3.4) Monocytes # (Auto) 0.55 K/uL (0.11-0.59) Eosinophils # (Auto) 0.14 K/uL (0-0.5) Basophils # (Auto) 0.02 K/uL (0-0.2) RDW Standard Deviation 47.6 fL (36.4-46.3) RDW Coefficient of Variation 13.9 % (11.5-14.5) Immature Granulocyte % (Auto) 0.3 % Immature Granulocyte # (Auto) 0.03 K/uL (0.00-0.02) Anion Gap 7.0 mmol/L (3-11) Est Creatinine Clear Calc Drug Dose 87.2 ml/min Estimated GFR () 105.8 Estimated GFR (Non- 91.3 BUN/Creatinine Ratio 19.0 (10-20) Calcium Level 9.3 mg/dl (8.5-10.1) Magnesium Level 2.0 mg/dl (1.8-2.4) Total Bilirubin 0.6 mg/dl (0.2-1) Direct Bilirubin 0.2 mg/dl (0-0.2) Aspartate Amino Transf (AST/SGOT) 27 U/L (15-37) Alanine Aminotransferase (ALT/SGPT) 46 U/L (12-78) Alkaline Phosphatase 94 U/L (45-117) Total Creatine Kinase 29 U/L (26-192) Creatine Kinase MB 0.6 ng/ml (0.5-3.6) Creatine Kinase MB Ratio 2.1 (0-3.0) Troponin I < 0.015 ng/ml (0-0.045) Total Protein 7.6 gm/dl (6.4-8.2) Albumin 3.9 gm/dl (3.4-5.0) Lipase 71 U/L (73-393) Thyroid Stimulating Hormone (TSH) 1.030 uIu/ml (0.300-4.500) Urine Color YELLOW Urine Appearance CLEAR (CLEAR) Urine pH 6.0 (4.5-7.5) Urine Specific [place] 1.023 (1.000-1.030) Urine Protein NEG (NEG) Urine Glucose (UA) NEG (NEG) Urine Ketones NEG (NEG) Urine Occult Blood NEG (NEG) Urine Nitrite NEG (NEG) Urine Bilirubin NEG (NEG) Urine Urobilinogen NEG (NEG) Urine Leukocyte Esterase NEG (NEG) Date/Time Source Procedure Growth Status 04/16/17 22:55 Stool C.difficile Toxin B Gene (PCR) - Final No C. difficile toxin B gene detected Complete Laboratory results reviewed by me Medications Administered Medications (Trade) Dose Ordered Sig/Claudia Route Start Time Stop Time Status Last Admin Dose Admin Sodium Chloride 1,000 ml @ 125 mls/hr Q8H STAT IV 04/16/17 20:18 04/17/17 04:17 04/16/17 21:01 125 MLS/HR Sodium Chloride 500 ml @ 999 mls/hr Q31M STAT IV 04/16/17 20:30 04/16/17 21:00 DC 04/16/17 21:01 999 MLS/HR ECG Per My Interpretation Indication: palpitations Rate (beats per minute): 82 Rhythm: normal sinus Findings: no acute ischemic change, no ectopy, other (Normal intervals.) Change: Patient's electrocardiogram was interpreted by me. ED Course 2022: The patient was evaluated in room C8. A complete history and physical exam was performed. 2018: Ordered Sodium Chloride 1,000 ml @ 125 mls/hr IV 2030: Ordered Sodium Chloride 500 ml @ 999 mls/hr IV 2316: I reassessed the patient at this time. 0030: I reassessed the patient at this time. She is feeling better and resting comfortably. I discussed the results and treatment plan with the patient. I answered all pertaining questions that she had. She expressed understanding and verbalized agreement. She will follow up with her medical scribe. The patient will be discharged home. Medical Decision Triage Nursing notes reviewed. The patient's presentation and history were concerning for diarrhea and and methotrexate use. Etiologies such as medication side effect, C. difficile infection, gastroenteritis, food borne illness, infections, obstruction, pancreatitis, appendicitis, diverticulitis, inflammatory bowel disease, GI bleed, biliary pathology, toxicologic as well as others were entertained. The patient was evaluated. Clinically she was doing well. Blood work, stool testing and imaging were ordered. ECG was unremarkable. Her blood work did not reveal any acute findings. C. difficile testing was negative. CT imaging did not reveal any evidence of colitis or diverticulitis. No other pathology noted. The patient was informed about her fibroid. Stool culture is pending. The patient may be experiencing side effects of her medication, the methotrexate. She has no evidence of nephro or hepatotoxicity. She has a follow-up on Wednesday with her medical scribe. She will hold on any additional doses of the methotrexate. She will discuss this with them. If she has any worsening symptoms she will come back. She will contact the Emergency Room on Wednesday as well for stool culture results. I gave my usual and customary discussion regarding this issue. By the evaluation outlined above other emergent etiologies such as those listed in the differential, as well as others, were deemed relatively unlikely. The patient was educated about the findings as listed above. All questions were answered and the patient was pleased with the treatment. Return instructions were outlined and the patient was discharged in stable condition. The patient was referred to rheumatology for follow-up for a recheck of the current condition. Medication Reconcilliation Current Medication List: was personally reviewed by me Blood Pressure Screening Patient's blood pressure: Elevated blood pressure Blood pressure disposition: Referred to PCP Impression Primary Impression: Diarrhea Scribe Attestation The scribe's documentation has been prepared under my direction and personally reviewed by me in its entirety. I confirm that the note above accurately reflects all work, treatment, procedures, and medical decision making performed by me. Departure Information Dispostion Home / Self-Care Referrals Lopez Chery M.D. (MEDICAL) (PCP) Forms HOME CARE DOCUMENTATION FORM, IMPORTANT VISIT INFORMATION, WORK / SCHOOL INSTRUCTIONS Patient Instructions My [facility] Additional Instructions Continue current medications except hold the methotrexate until follow-up with your medical scribe. Rest and drink plenty of fluids. Stool culture is pending and should be available within the next 72 hours. Call back to the Emergency Room on Wednesday for result. [phone]. Return to the ER for worsening abdominal pain, vomiting, fevers, bloody stools, or as needed.
== END 2017-04-17 00:48 | disposition home or self-care (01) ==
LOC: C.EDB 17:14 → C.EDC 04-17 00:48
DX: R19.7 Diarrhea, unspecified (principal); M06.9 Rheumatoid arthritis, unspecified; F17.200 Nicotine dependence, unspecified, uncomplicated; Z87.01 Personal history of pneumonia (recurrent); Z96.642 Presence of left artificial hip joint; Z96.653 Presence of artificial knee joint, bilateral; Z83.3 Family history of diabetes mellitus; Z82.49 Family history of ischemic heart disease and other diseases of the circulatory system

== ENCOUNTER 2017-07-19 20:14 | Emergency (ER) | payer OTHER ==
[~2017-07-19] VITALS: Ht 157.5 cm; Wt 78.7 kg
[~2017-07-19 20:14] MED LIST changes: +CHOL400C7 PO; +FLUT0.15 NAE; +FLV1 PO; +GUAI1LIQ7 PO; +MELO15TA10 PO; +METH2.5T PO; +PRED-301 PO
[2017-07-19 20:17] VITALS: TEMP 36.5; Ht 157.5 cm; Wt 78.7 kg
[2017-07-19] MEDS ORDERED: PROPARACAINE HCL 0.5% OP SOLN 15 ML BTL OP STA (20:46)
[2017-07-19] MEDS ORDERED: CIPROFLOXACIN HCL 0.3% OP SOLN 2.5 ML BTL OP ONE (21:30)
--- NOTE | 2017-07-19 21:50 | EMERGENCY ROOM VISIT NOTE ---
ED Visit Note First contact with patient: 20:35 CHIEF COMPLAINT: Eye pain HISTORY OF PRESENT ILLNESS: This 47-year-old female patient presents to the emergency department complaining of pain in the left eye that started acutely when she was weed whacking. There has been a constant moderate pain and irritation, redness and tearing in the eye. There is a mild blurring of vision. No photophobia.. The vision has not been decreased over all. The patient does not wear contacts. The patient rates the pain as burning and 2/ 10. The patient has not had previous injuries to this eye. Tetanus shot is up to date. REVIEW OF SYSTEMS: A 6 system review of systems was completed with positives and pertinent negatives listed in the HPI. ALLERGIES: [place] MEDICATIONS: Personally reviewed PMH: RA, hypertension SOCIAL HISTORY: Lives at home. Occasional alcohol use. PHYSICAL EXAM: Vital Signs: Reviewed Nurse's notes, vital signs stable. Visual acuity as noted in nurse's notes. GENERAL: This is a 47-year-old female, in no acute distress, but who is uncomfortable from the eye problem. Well-developed well-nourished. EYES: PH in the left eye is 7.0. The pupils are equal round and reactive to light and accommodation. EOMs are full and without tenderness. There is discharge of clear tears from the left eye which is injected. There is no foreign body visible under the eyelid even after lid eversion. No foreign body was seen embedded in the cornea under slit lamp exam. Punctate, 1 mm, superficial corneal abrasions were noted particularly at 4:00 and 7:00. The anterior chamber is clear. No hyphema. No flare.. EMERGENCY DEPARTMENT COURSE: I examined the patient. Vital signs including blood pressure were reviewed. Her blood pressure is elevated as noted. Medications were also reviewed. The pH of the left eye was checked and 7. Alcaine 2 drops were placed in the patient's left eye. A slit lamp exam was performed as above. Ciloxan two drops was placed in the patient's left eye. The patient was discharged home in good condition. DIFFERENTIAL DIAGNOSIS: Foreign body, corneal abrasions, ulcerations, chemical exposure and infectious etiology were entertained. Physical exam is consistent with superficial abrasions likely sustained from weed whacking. An infectious etiology would also have a similar appearance regarding the cornea, however this does not coincide with the patient's history. The patient will be covered with antibiotics and instructed to have close follow-up with the glass installer. She was comfortable with this plan. She was cautioned to return to the ED with any worsening symptoms. She was discharged in good condition DIAGNOSIS: Corneal abrasion of the left eye DISCHARGE INSTRUCTIONS AND TREATMENT: Use Ciloxin two drops in left eye every two hours while awake for two days; then two drops every four hours while awake for three days. Ibuprofen 600 mg every 6 hours as needed for pain Wittmann 1-2 tabs every 4 hours for severe pain. Do not drink alcohol or drive while taking this medication. This may be taken with ibuprofen, but avoid Tylenol. Return to the ED for increasing pain or changes in vision. Of note, your blood pressure in the emergency department was elevated. Please have this rechecked with your primary care physician. This chart was completed in part utilizing [employer] Speech Voice Recognition software. Attempts were made to minimize the grammatical errors, random word insertions, pronoun errors and incomplete sentences. Any formal questions or concerns about the content, text or information contained within the body of this dictation should be directly addressed to the provider for clarification.
[2017-07-19] MEDS ORDERED: HYDR-5688 PO (21:52)
[2017-07-19] MEDS ORDERED: NORCO 5/325MG HOME PACK PO ONE (22:00)
[2017-07-19 22:01] VITALS: BP 148/86; PULSE 76; O2SAT 94
== END 2017-07-19 22:01 | disposition home or self-care (01) ==
LOC: C.EDB 20:16 → C.EDD 22:01
DX: S05.02XA Injury of conjunctiva and corneal abrasion without foreign body, left eye, initial encounter (principal); X58.XXXA Exposure to other specified factors, initial encounter; Y93.H2 Activity, gardening and landscaping; I10 Essential (primary) hypertension

== ENCOUNTER 2025-01-14 03:04 | Inpatient (IN) ==
--- NOTE | 2025-01-14 03:20 | Emergency Department Note ---
History of Present Illness General Chief complaint: Respiratory Problems Stated complaint: Respiratory Problems, Anxiety Time Seen by Provider: 01/14/25 03:11 History of Present Illness This 54-year-old female that smokes presents ER complaint of cough, congestion, chest pain and dyspnea for the past few days doubly getting worse. She has been on prednisone by acute care. EMS gave 3 nebulizers and Solu-Medrol. Patient denies abdominal pain, vomiting, diarrhea. Her legs have been bothering her. No history of PE. Home Medications Medication Instructions Recorded Confirmed Type acetaminophen 500 mg tablet 1,000 mg PO Q6H PRN Pain 07/13/19 07/13/19 History (Tylenol Extra Strength) acetaminophen 650 mg 650 mg PO Q12H PRN Pain 07/13/19 07/13/19 History tablet,extended release (Tylenol Arthritis Pain) clonidine 0.2 mg/24 hr weekly 0.2 mg topical WK 07/13/19 07/13/19 History transdermal patch fluticasone propionate 50 2 spray intranasal DAILY PRN 07/13/19 07/13/19 History mcg/actuation nasal Allergy Symptoms spray,suspension (Flonase Allergy Relief) loratadine 10 mg tablet 10 mg PO DAILY PRN Allergy Symptoms 07/13/19 07/13/19 History meloxicam 15 mg tablet 15 mg PO DAILY 07/13/19 07/13/19 History multivitamin 1 tab PO DAILY 07/13/19 07/13/19 History oxycodone 5 mg tablet 5 mg PO Q6H PRN pain (scale score 07/13/19 Rx 7-10) #12 tabs prednisone 10 mg tablet 5 mg PO DAILY 07/13/19 07/13/19 History hydrocodone 5 mg-acetaminophen 325 1 tab PO Q4H PRN pain #15 tabs 10/16/19 Rx mg tablet (Mcallen) Allergies Allergy/AdvReac Type Severity Reaction Status Date / Time peach Allergy Intermediate Hives Verified 01/14/25 03:39 Past Med/Surg History Problem List (Updated 01/14/25 @ 05:09 by Annette Hayes PA-C) Elevated LFTs (Acute) Acute bronchitis (Acute) Elevated troponin (Acute) Rheumatoid arthritis (Chronic) Social History Smoking Status: Current every day smoker Tobacco Type: Cigarettes Preferred Language: Polish Feels Safe at Home: Yes Review of Systems A total of 10 systems reviewed and were otherwise negative Physical Exam Vital Signs Vital Signs - 24 hr 01/14/25 03:15 01/14/25 03:15 01/14/25 03:20 Temperature 37 C Temperature Source Oral Pulse Rate 113 H 84 Pulse Rate [Apical] Pulse Rate from SpO2 Sensor Pulse Rhythm Regular Pulse Rhythm [Apical] Pulse Strength Normal Pulse Strength [Apical] Respiratory Rate 27 H Respiratory Effort / Characteristics Spontaneous Short of Breath Spontaneous Short of Breath Respiratory Depth Normal Respiratory Pattern Tachypnea Tachypnea Blood Pressure 141/90 H Blood Pressure [Right Arm] Blood Pressure Mean 107 Blood Pressure Mean [Right Arm] Blood Pressure Position Sitting Blood Pressure Position [Right Arm] Pulse Oximetry 95 Oxygen Delivery Method Room Air Room Air Sepsis Recent Fever Within 48 Hours No Sepsis New/Unexplained Change in Mental Status N/A Sepsis Action Taken by Nursing No Action Required 01/14/25 03:30 01/14/25 04:00 01/14/25 05:00 Temperature Temperature Source Pulse Rate 83 95 H 99 H Pulse Rate [Apical] Pulse Rate from SpO2 Sensor 82 93 H 96 H Pulse Rhythm Pulse Rhythm [Apical] Pulse Strength Pulse Strength [Apical] Respiratory Rate 19 24 24 Respiratory Effort / Characteristics Respiratory Depth Respiratory Pattern Blood Pressure 107/76 141/75 H 119/89 Blood Pressure [Right Arm] Blood Pressure Mean 86 97 99 Blood Pressure Mean [Right Arm] Blood Pressure Position Blood Pressure Position [Right Arm] Pulse Oximetry 95 96 94 Oxygen Delivery Method Room Air Room Air Room Air Sepsis Recent Fever Within 48 Hours Sepsis New/Unexplained Change in Mental Status Sepsis Action Taken by Nursing 01/14/25 05:13 01/14/25 05:30 Temperature Temperature Source Pulse Rate Pulse Rate [Apical] 79 76 Pulse Rate from SpO2 Sensor Pulse Rhythm Pulse Rhythm [Apical] Regular Regular Pulse Strength Pulse Strength [Apical] Normal Normal Respiratory Rate 16 24 Respiratory Effort / Characteristics Non-Labored Non-Labored Spontaneous Respiratory Depth Normal Normal Respiratory Pattern Regular Regular Blood Pressure Blood Pressure [Right Arm] 119/89 117/76 Blood Pressure Mean Blood Pressure Mean [Right Arm] 99 89 Blood Pressure Position Blood Pressure Position [Right Arm] Lying Sitting Pulse Oximetry 93 94 Oxygen Delivery Method Room Air Sepsis Recent Fever Within 48 Hours Sepsis New/Unexplained Change in Mental Status Sepsis Action Taken by Nursing VITALS: Vitals are noted on the nurse's note and reviewed by myself. Vital signs stable. GENERAL: White female coughing, in no acute distress, nondiaphoretic, well- developed well-nourished. SKIN: Capillary reflex less than 2 seconds. HEENT: Normocephalic. PERRLA. EOMI. Nares patent. Mucous membranes moist. Neck is supple without nuchal rigidity. HEART: Regular rate and rhythm LUNGS: Mild diffuse end expiratory wheeze. No retractions or accessory muscle use. ABDOMEN: Positive bowel sounds x 4. Normal tympanic percussion. Soft, nontender, without masses or organomegaly. Farnsworth sign negative. No guarding or rebound tenderness. no CVA tenderness MUSCULOSKELETAL: No gross musculoskeletal defects. NEURO: Patient was alert and oriented to person place and time. No focal neurological deficits. Course Administered Medications Discontinued Medications Sodium Chloride (Nss) 1,000 mls @ 999 mls/hr IV .Q1H1M ONE Stop: 01/14/25 05:13 Last Infusion: 01/14/25 05:18 Dose: Infused Documented By: hoa Admin: 01/14/25 04:16 Dose: 999 mls/hr Documented By: PEGGY Ioversol (Optiray 320 125ml) 118 ml IV ONCE ONE Stop: 01/14/25 04:04 Last Admin: 01/14/25 04:03 Dose: 118 ml Documented By: STEVE Lorazepam (Lorazepam 1 Mg/1 Ml Syr Ed Inj Use) 1 mg IV ONE STA Stop: 01/14/25 04:12 Last Admin: 01/14/25 04:15 Dose: 1 mg Documented By: PEGGY Medical Decision Making Medical Records Attestation: I reviewed the patient's medical records. Home Medications Current Medication List: was personally reviewed by me Laboratory Data Attestation: I reviewed the patient's lab results. 01/14/25 03:15 01/14/25 03:15 Lab Results 01/14/25 01/14/25 01/14/25 Range/Units 00:17 03:15 03:28 WBC 21.21 H (4.8-10.8) K/ul RBC 4.67 (4.20-5.40) M/uL Hgb 13.4 (12.0-16.0) g/dL POC Hgb 14.3 (12.0-16.0) g/dl Hct 41.3 (37.0-47.0) % POC Hct 42 (37-47) % MCV 88.4 (80.0-100.0) fL MCH 28.7 (25.0-34.0) pg MCHC 32.4 (32.0-36.0) g/dL RDW Std Deviation 48.1 H (36.4-46.3) fL RDW Coeff of Timothy 14.8 H (11.5-14.5) % Plt Count 425 H (130-400) K/uL MPV 9.7 (9.4-12.4) fL Immature Gran % (Auto) 0.8 % Neut % (Auto) 72.8 % Lymph % (Auto) 22.6 % [place] % (Auto) 3.4 % Eos % (Auto) 0.2 % Baso % (Auto) 0.2 % Neut # (Auto) 15.43 H (1.40-6.50) K/uL Lymph # (Auto) 4.79 H (1.20-3.40) K/uL [place] # (Auto) 0.73 H (0.11-0.59) K/uL Eos # (Auto) 0.05 (0.00-0.50) K/uL Baso # (Auto) 0.05 (0.00-0.20) K/uL Immature Gran # (Auto) 0.16 (0.01-0.20) K/uL POC Sodium 137 (135-144) mmol/L Sodium 138 (136-145) mmol/L POC Potassium 4.3 (3.3-5.0) mmol/L Potassium 3.4 L (3.5-5.1) mmol/L POC Chloride 101 (101-112) mmol/L Chloride 101 (98-107) mmol/L Carbon Dioxide 24 (21-32) mmol/L POC Total CO2 25 (24-31) mmol/L Anion Gap 13 H (3-11) POC Anion Gap 16.0 (16-25) mmol/L POC BUN 33 H (7-18) mg/dl BUN 25 H (6-23) mg/dl Creatinine 1.08 (0.6-1.2) mg/dl POC Creatinine 1.1 (0.6-1.3) mg/dl Est Cr Clr Drug Dosing 63.2 ml/min eGFR 60.66 BUN/Creatinine Ratio 23.1 H (10-20) Glucose 302 H* (70-99(Fasting)) mg/dl POC Glucose (other) 273 H (70-99) mg/dl Calcium 11.0 H (8.6-10.3) mg/dl POC Ioniz Calcium [place] 1.32 (1.12-1.32) mmol/l Magnesium 2.0 (1.7-2.4) mg/dl Total Bilirubin 0.6 (0.2-1.0) mg/dl AST 156 H (13-39) U/L ALT 135 H (7-52) U/L Alkaline Phosphatase 107 H (34-104) U/L Troponin I High Sens 42.2 H (0-14) pg/ml Total Protein 7.3 (6.0-8.3) gm/dl Albumin 4.2 (3.4-5.0) gm/dl Globulin 3.1 (2.5-4.0) gm/dl Albumin/Globulin Ratio 1.4 (0.9-2) HCG, Qual Negative (Negative) Adenovirus (PCR) Not Detected (NotDetected) B. pertussis DNA (PCR) Not Detected (NotDetected) B.parapertussis DNA PCR Not Detected (NotDetected) C. pneumoniae DNA (PCR) Not Detected (NotDetected) Coronavirus OC43 (PCR) Not Detected (NotDetected) Coronavirus HKU1 (PCR) Not Detected (NotDetected) Coronavirus 229E (PCR) Not Detected (NotDetected) SARS-CoV-2 (PCR) Not Detected (NotDetected) Coronavirus NL63 (PCR) Not Detected (NotDetected) Human Metapneumovir PCR Not Detected (NotDetected) Influenza Type A (PCR) Not Detected (NotDetected) Influenza Type B (PCR) Not Detected (NotDetected) M. pneumoniae (PCR) Not Detected (NotDetected) Parainfluenza 1 (PCR) Not Detected (NotDetected) Parainfluenza 2 (PCR) Not Detected (NotDetected) Parainfluenza 3 (PCR) Not Detected (NotDetected) Parainfluenza 4 (PCR) Not Detected (NotDetected) RSV (PCR) Not Detected (NotDetected) Entero/Rhino (PCR) Not Detected (NotDetected) Imaging Data Attestation: I personally reviewed and interpreted this imaging study as follows: Radiologist's Impression: Chest CTA 01/14/25 03:17 EXAM: CT angio chest PE protocol CLINICAL HISTORY: Dyspnea TECHNIQUE: Contiguous axial images were obtained from the neck base through the upper abdomen following intravenous administration of iodinated contrast material. Angiographic images were processed, 3D MIP images were acquired for interpretation. If IV contrast material had not been administered, the likelihood of detecting abnormalities relevant to the patient's condition would have been substantially decreased. Coronal and sagittal 3-D MIPs were likewise performed and indicated to increase the sensitivity of detecting diffuse clinically relevant pathology. CT scan was performed according to ALARA (as low as reasonable achievable). COMPARISON: None. FINDINGS: Adequate contrast bolus without evidence of pulmonary embolism. Mild smooth interlobular septal thickening is seen in the lungs, especially in the lower lobes. Few confluent areas of ground glass attenuation are seen in the central peribronchovascular location. The central airways are patent. No pleural effusion. The heart, aorta, and pulmonary arteries are of normal size and configuration. No pericardial effusion is identified. There are no appreciable coronary artery and aortic atherosclerotic calcifications. The thyroid is unremarkable. No mediastinal, hilar, or axillary lymphadenopathy is noted. No suspicious lytic or sclerotic osseous lesions are identified. IMPRESSION: 1. No evidence of pulmonary embolism. 2. Mild smooth interlobular septal thickening in lungs with confluent areas of ground glass attenuation in central peribronchovascular location - suggestive of mild pulmonary edema. Electronically signed by Jovani Dwyer 01-14-2025 05:34 AM MDM Narrative Prior records/ancillary studies reviewed. Triage Nursing notes reviewed. Additional history obtained from the EMS The patient's history was concerning for respiratory difficulties. Differential diagnosis: Etiologies such as infections, reactive airway disease, pneumonia, pneumothorax, COPD, CHF, cardiac ischemia, pulmonary embolism, musculoskeletal, gastrointestinal, as well as others were entertained. Physical examination: As above. ER treatment provided: An order was placed for continuous cardiac monitoring. The monitor shows a rate of 60-100 with a sinus rhythm per my interpretation. EMS gave DuoNebs x 3 and Solu-Medrol Rocephin was ordered for bronchitis as patient is a smoker On reassessment the patient felt better. Diagnostic interpretation by me: #1 the electrocardiogram was ordered for SOB. ECG: Normal sinus, normal intervals, no acute ST-T wave changes, rate of 79. Impression normal sinus rhythm independently interpreted by myself #2 EKG ordered for slightly elevated troponin EKG: Normal sinus, minimal ST depression in the lateral leads, rate of 98. Impression normal sinus rhythm with minimal depression of the lateral leads mostly rate dependent independently interpreted by myself The labs Independently Interpreted by myself revealed leukocytosis and patient has been on steroids Hyperglycemia without DKA. Patient has been on steroids Mild LFT elevation. Slightly elevated troponin repeat was ordered and patient had no current chest pain and repeat troponin was ordered Negative [employer] Imaging studies: Imaging was reviewed and read by radiology Consultation: A consultation was placed with the hospitalist. The case was discussed and diagnostics were reviewed. The patient was evaluated in the ER for further treatment. This appears to be consistent with shortness of breath cough most likely related to bronchitis. Troponin slightly elevated. Most likely from viral infection. No signs of STEMI on EKG. Medicine was consulted and case discussed. She will be evaluated for admission. By the evaluation outlined above emergent etiologies such as pulmonary embolism, reactive airway disease, pneumonia, pneumothorax, musculoskeletal, serious bacterial infections, as well as others were deemed relatively unlikely. The pt informed about the findings as listed above. All questions were answered and pleased with the treatment. condition. The chart was completed utilizing [employer] Speech voice recognition software. Grammatical errors, random word insertions, pronoun errors, and incomplete sentences are an occassional consequence of this system due to software limitations, ambient noise, and hardware issues. Any formal questions or concerns about the content, text, or information contained within the body of this dictation should be directly addressed to the physician critical care physician assistant for clarification. Impression & Plan Elevated troponin, Acute bronchitis, Elevated LFTs Discharge Plan Visit Data Chief Complaint: Respiratory Problems Stated Complaint: Respiratory Problems, Anxiety ED Provider: Talon Maddox ED Midlevel Provider: Annette Hayes Discharge Problem: Elevated troponin, Acute bronchitis, Elevated LFTs Patient Disposition: Admitted As Inpatient Condition: Fair Forms Stand Alone Forms: My [facility] Prescriptions Prescriptions: No Action multivitamin Tablet 1 tab PO DAILY prednisone 10 mg tablet 5 mg PO DAILY clonidine 0.2 mg/24 hr patch weekly 0.2 mg topical WK Rx Instructions: CHANGE PATCH EVERY WEDNESDAY meloxicam 15 mg tablet 15 mg PO DAILY acetaminophen [Tylenol Extra Strength] 500 mg Tablet 1,000 mg PO Q6H PRN (Reason: Pain) acetaminophen [Tylenol Arthritis Pain] 650 mg Tablet Extended Release 650 mg PO Q12H PRN (Reason: Pain) fluticasone propionate [Flonase Allergy Relief] 50 mcg/actuation [place],Suspension 2 spray INTRANASAL DAILY PRN (Reason: Allergy Symptoms) loratadine 10 mg Tablet 10 mg PO DAILY PRN (Reason: Allergy Symptoms) oxycodone 5 mg tablet 5 mg PO Q6H PRN (Reason: pain (scale score 7-10)) Qty: 12 0RF hydrocodone-acetaminophen [Mcallen] 5-325 mg tablet 1 tab PO Q4H PRN (Reason: pain) Qty: 15 0RF Rx Instructions: Initial Treatment Referrals Referrals: Fatmata Nichols PA-C [Primary Care Provider] -
[2025-01-14 03:34] LABS: Hematocrit (blood only) 41.3 % (37.0-47.0); Hemoglobin 13.4 g/dL (12.0-16.0); Immature Granulocytes # (auto) 0.16 K/uL (0.01-0.20); Immature Granulocytes % (auto) 0.8 %; Mean Corpuscular Hemoglobin 28.7 pg (25.0-34.0); Mean Corpuscular Volume 88.4 fL (80.0-100.0); Platelet Count 425 K/uL (130-400); RDW Standard Deviation 48.1 fL (36.4-46.3); Red Blood Count 4.67 M/uL (4.20-5.40); White Blood Count 21.21 K/ul (4.8-10.8)
[2025-01-14 03:57] LABS: Pregnancy Test, Serum Negative (Negative)
[2025-01-14] MEDS: OPTIRAY 320 125ml IV ONE (04:03)
[2025-01-14 04:13] LABS: Alanine Aminotransferase 135.0 U/L (7-52); Albumin Globulin Ratio 1.4 (0.9-2); Albumin Level 4.2 gm/dl (3.4-5.0); Alkaline Phosphatase 107.0 U/L (34-104); Anion Gap 13.0 (3-11); Bilirubin,Total 0.6 mg/dl (0.2-1.0); Blood Urea Nitrogen 25.0 mg/dl (6-23); Calcium 11.0 mg/dl (8.6-10.3); Carbon Dioxide 24.0 mmol/L (21-32); Chloride 101.0 mmol/L (98-107); Creatinine Clr Calc Pharmacy 63.2 ml/min; Globulin 3.1 gm/dl (2.5-4.0); Glucose 302.0 mg/dl (70-99(Fasting)); Magnesium 2.0 mg/dl (1.7-2.4); Potassium 3.4 mmol/L (3.5-5.1); Sodium 138.0 mmol/L (136-145); Total Protein 7.3 gm/dl (6.0-8.3)
[2025-01-14] MEDS: LORazepam 1 MG/1 ML SYR ED Inj Use IV STA (04:15)
[2025-01-14] MEDS: SODIUM CHLORIDE 0.9% 1,000 ML IV ONE (04:16)
[2025-01-14 04:38] LABS: Chlamydia pneumoniae PCR Not Detected (NotDetected); Coronavirus 229E PCR Not Detected (NotDetected); Coronavirus CoV-2 (COVID19)PCR Not Detected (NotDetected); Coronavirus HKU1 PCR Not Detected (NotDetected); Coronavirus NL63 PCR Not Detected (NotDetected); Coronavirus OC43PCR Not Detected (NotDetected); Human Metapneumovirus PCR Not Detected (NotDetected); Parainfluenza Virus 1 PCR Not Detected (NotDetected); Parainfluenza Virus 2 PCR Not Detected (NotDetected); Parainfluenza Virus 3 PCR Not Detected (NotDetected); Parainfluenza Virus 4 PCR Not Detected (NotDetected); Respiratory Syncytial VirusPCR Not Detected (NotDetected); Rhinovirus/Enterovirus PCR Not Detected (NotDetected)
--- NOTE | 2025-01-14 05:34 | CT Scan Report ---
EXAM: CT angio chest PE protocol CLINICAL HISTORY: Dyspnea TECHNIQUE: Contiguous axial images were obtained from the neck base through the upper abdomen following intravenous administration of iodinated contrast material. Angiographic images were processed, 3D MIP images were acquired for interpretation. If IV contrast material had not been administered, the likelihood of detecting abnormalities relevant to the patient's condition would have been substantially decreased. Coronal and sagittal 3-D MIPs were likewise performed and indicated to increase the sensitivity of detecting diffuse clinically relevant pathology. CT scan was performed according to ALARA (as low as reasonable achievable). COMPARISON: None. FINDINGS: Adequate contrast bolus without evidence of pulmonary embolism. Mild smooth interlobular septal thickening is seen in the lungs, especially in the lower lobes. Few confluent areas of ground glass attenuation are seen in the central peribronchovascular location. The central airways are patent. No pleural effusion. The heart, aorta, and pulmonary arteries are of normal size and configuration. No pericardial effusion is identified. There are no appreciable coronary artery and aortic atherosclerotic calcifications. The thyroid is unremarkable. No mediastinal, hilar, or axillary lymphadenopathy is noted. No suspicious lytic or sclerotic osseous lesions are identified. IMPRESSION: 1. No evidence of pulmonary embolism. 2. Mild smooth interlobular septal thickening in lungs with confluent areas of ground glass attenuation in central peribronchovascular location - suggestive of mild pulmonary edema. Electronically signed by Jovani Dwyer 01-14-2025 05:34 AM
--- NOTE | 2025-01-14 05:52 | History & Physical Report ---
Date of Service January 14, 2025 Assessment & Plan (1) SOB (shortness of breath): Plan: Assessment and plan below following discussion of case with ED provider and reviewing patient history/pertinent normal/abnormal diagnostic test results. Shortness of breath Multifactorial Complicated bronchitis, protracted symptoms, possible sepsis Mild CHF/fluid retention likely from outpatient steroid courses, underlying pulmonary hypertension as per records Troponin elevation secondary to above Leg swelling secondary to CHF rule out DVT Persistent transaminitis, possible passive hepatic congestion from CHF, patient without abdominal pain complaints Hypercalcemia, has been noted intermittently on prior draws on review of outpatient blood work, rule out primary hyperparathyroidism hypertension, stable RA on chronic steroid Rx prediabetes, patient hyperglycemic secondary to steroid courses, remote hemoglobin A1c of 5.9 from 2022 morbid obesity ongoing tobacco abuse Admit to PCU CS, doxycycline, nebs RTC Lasix 1 dose now Strict I/Os, daily weights, CHF education Update TTE, may benefit from Cardiology consultation Follow troponin LE venous Dopplers rule out DVT Liver ultrasound re: persistent transaminitis Check Phos, intact PTH, hold triamterene/HCTZ for now Basal bolus insulin, ISS BG goal 110-140, carb count coverage, update hemoglobin A1c Nicotine patch as needed DVT prophylaxis. Lovenox subcu Full code Text document was generated using [employer] voice recognition software. It may contain grammatical or spelling errors. Kindly contact undersigned for clarification of any documentation item in question. History of Present Illness Chief Complaint: Shortness of breath, leg swelling Primary Care Provider: Fatmata Nichols PA-C History obtained from patient and records. Medical history significant for hypertension, possible RACHEL, pulmonary hyperten moy, RA on chronic steroid Rx, prediabetes, morbid obesity, ongoing tobacco abuse. Patient has not been well since last month. Junky cough symptoms productive of green sputum. Denies aspiration. Short-lived response to outpatient steroid taper and Z-Zeb Rx courses prescribed by urgent care. Increased bilateral leg swelling with persistent junky cough symptoms and SOB over the last few days despite. Sticky cough symptoms. Denies chest pain. Patient not sure about weight gain. Patient seen at urgent care center yesterday. Chest x-ray without abnormalities. Abnormal outpatient lab results noted. BNP elevated at 300, ALT 88, AST 57, glucose 305. Patient consulted ER for worsening symptoms. Ceftriaxone administered at the ER. Medical History as above Surgical History : Bilateral knee surgeries, elbow surgery, toe surgery, hip surgeries Family History : DM, throat cancer, heart disease, stroke, mood disorder Personal/Social history : 1/4 pack daily, occasional EtOH intake, disabled Allergies Allergy/AdvReac Type Severity Reaction Status Date / Time peach Allergy Intermediate Hives Verified 01/14/25 03:39 Home Medications Medication Instructions Recorded Confirmed Type acetaminophen 500 mg tablet 1,000 mg PO Q6H PRN Pain 07/13/19 01/14/25 History (Tylenol Extra Strength) loratadine 10 mg tablet 10 mg PO DAILY PRN Allergy Symptoms 07/13/19 01/14/25 History multivitamin 1 tab PO DAILY 07/13/19 01/14/25 History albuterol sulfate 90 mcg/actuation 90 mcg inhalation 1XD 01/14/25 01/14/25 History aerosol inhaler losartan 50 mg tablet 50 mg PO 1XD 01/14/25 01/14/25 History nystatin 100,000 unit/mL oral 100,000 unit PO 1XD 01/14/25 01/14/25 History suspension prednisone 10 mg tablet 10 mg PO DAILY 01/14/25 01/14/25 History tramadol 50 mg tablet 50 mg PO 1XD 01/14/25 01/14/25 History triamterene 37.5 37.5 tab PO 1XD 01/14/25 01/14/25 History mg-hydrochlorothiazide 25 mg tablet Past Med/Surg History Problem List (Updated 01/14/25 @ 09:26 by Felicita Harrell) Elevated LFTs (Acute) Acute bronchitis (Acute) Elevated troponin (Acute) Rheumatoid arthritis (Chronic) Social History Smoking Status: Current every day smoker Tobacco Type: Cigarettes Preferred Language: Uzbek Feels Safe at Home: Yes Review of Systems Review of Systems: As per HPI, all other systems reviewed and negative Physical Exam Physical Exam: GENERAL: Slightly uncomfortable, obese, cushingoid, no respiratory distress SKIN: Normal color, warm HEENT: [place] palpebral conjunctivae, no ptosis, dry buccal mucosa NECK : Supple, short neck, no tenderness CHEST : Decreased breath sounds, occasional expiratory wheezes, no tenderness HEART : RRR, no obvious murmurs ABDOMEN: Some distention, nontender EXTREMITIES : Bilateral LE swelling without tenderness, palpable pulses, no other conspicuous deformities noted NEUROLOGIC : Coherent, no facial asymmetry, no other gross focality Results & Data Results & Data Vital Signs (Past 12 Hours) Vital Signs Temp Pulse Pulse Resp BP BP Pulse Ox 01/14/25 05:13 79 16 119/89 93 01/14/25 05:00 99 H 24 119/89 94 01/14/25 04:00 95 H 24 141/75 H 96 01/14/25 03:30 83 19 107/76 95 01/14/25 03:20 84 01/14/25 03:15 37 C 113 H 27 H 141/90 H 95 01/14/25 03:15 O2 Del Method 01/14/25 05:13 01/14/25 05:00 Room Air 01/14/25 04:00 Room Air 01/14/25 03:30 Room Air 01/14/25 03:20 01/14/25 03:15 Room Air 01/14/25 03:15 Room Air Laboratory Results Laboratory Results WBC 21.21 K/ul (4.8-10.8) H 01/14/25 03:15 RBC 4.67 M/uL (4.20-5.40) 01/14/25 03:15 Hgb 13.4 g/dL (12.0-16.0) 01/14/25 03:15 POC Hgb 14.3 g/dl (12.0-16.0) 01/14/25 03:28 Hct 41.3 % (37.0-47.0) 01/14/25 03:15 POC Hct 42 % (37-47) 01/14/25 03:28 MCV 88.4 fL (80.0-100.0) 01/14/25 03:15 MCH 28.7 pg (25.0-34.0) 01/14/25 03:15 MCHC 32.4 g/dL (32.0-36.0) 01/14/25 03:15 RDW Std Deviation 48.1 fL (36.4-46.3) H 01/14/25 03:15 RDW Coeff of Timothy 14.8 % (11.5-14.5) H 01/14/25 03:15 Plt Count 425 K/uL (130-400) H 01/14/25 03:15 MPV 9.7 fL (9.4-12.4) 01/14/25 03:15 Immature Gran % (Auto) 0.8 % 01/14/25 03:15 Neut % (Auto) 72.8 % 01/14/25 03:15 Lymph % (Auto) 22.6 % 01/14/25 03:15 Chase % (Auto) 3.4 % 01/14/25 03:15 Eos % (Auto) 0.2 % 01/14/25 03:15 Baso % (Auto) 0.2 % 01/14/25 03:15 Neut # (Auto) 15.43 K/uL (1.40-6.50) H 01/14/25 03:15 Lymph # (Auto) 4.79 K/uL (1.20-3.40) H 01/14/25 03:15 Chase # (Auto) 0.73 K/uL (0.11-0.59) H 01/14/25 03:15 Eos # (Auto) 0.05 K/uL (0.00-0.50) 01/14/25 03:15 Baso # (Auto) 0.05 K/uL (0.00-0.20) 01/14/25 03:15 Immature Gran # (Auto) 0.16 K/uL (0.01-0.20) 01/14/25 03:15 POC Sodium 137 mmol/L (135-144) 01/14/25 03:28 Sodium 138 mmol/L (136-145) 01/14/25 03:15 POC Potassium 4.3 mmol/L (3.3-5.0) 01/14/25 03:28 Potassium 3.4 mmol/L (3.5-5.1) L 01/14/25 03:15 POC Chloride 101 mmol/L (101-112) 01/14/25 03:28 Chloride 101 mmol/L (98-107) 01/14/25 03:15 Carbon Dioxide 24 mmol/L (21-32) 01/14/25 03:15 POC Total CO2 25 mmol/L (24-31) 01/14/25 03:28 Anion Gap 13 (3-11) H 01/14/25 03:15 POC Anion Gap 16.0 mmol/L (16-25) 01/14/25 03:28 POC BUN 33 mg/dl (7-18) H 01/14/25 03:28 BUN 25 mg/dl (6-23) H 01/14/25 03:15 Creatinine 1.08 mg/dl (0.6-1.2) 01/14/25 03:15 POC Creatinine 1.1 mg/dl (0.6-1.3) 01/14/25 03:28 Est Cr Clr Drug Dosing 63.2 ml/min 01/14/25 03:15 eGFR 60.66 01/14/25 03:15 BUN/Creatinine Ratio 23.1 (10-20) H 01/14/25 03:15 Glucose 302 mg/dl (70-99(Fasting)) H* 01/14/25 03:15 POC Glucose (other) 273 mg/dl (70-99) H 01/14/25 03:28 Calcium 11.0 mg/dl (8.6-10.3) H 01/14/25 03:15 POC Ioniz Calcium [place] 1.32 mmol/l (1.12-1.32) 01/14/25 03:28 Magnesium 2.0 mg/dl (1.7-2.4) 01/14/25 03:15 Total Bilirubin 0.6 mg/dl (0.2-1.0) 01/14/25 03:15 AST 156 U/L (13-39) H 01/14/25 03:15 ALT 135 U/L (7-52) H 01/14/25 03:15 Alkaline Phosphatase 107 U/L (34-104) H 01/14/25 03:15 Troponin I High Sens 42.2 pg/ml (0-14) H 01/14/25 03:15 Total Protein 7.3 gm/dl (6.0-8.3) 01/14/25 03:15 Albumin 4.2 gm/dl (3.4-5.0) 01/14/25 03:15 Globulin 3.1 gm/dl (2.5-4.0) 01/14/25 03:15 Albumin/Globulin Ratio 1.4 (0.9-2) 01/14/25 03:15 HCG, Qual Negative (Negative) 01/14/25 03:15 Adenovirus (PCR) Not Detected (NotDetected) 01/14/25 00:17 B. pertussis DNA (PCR) Not Detected (NotDetected) 01/14/25 00:17 B.parapertussis DNA PCR Not Detected (NotDetected) 01/14/25 00:17 C. pneumoniae DNA (PCR) Not Detected (NotDetected) 01/14/25 00:17 Coronavirus OC43 (PCR) Not Detected (NotDetected) 01/14/25 00:17 Coronavirus HKU1 (PCR) Not Detected (NotDetected) 01/14/25 00:17 Coronavirus 229E (PCR) Not Detected (NotDetected) 01/14/25 00:17 SARS-CoV-2 (PCR) Not Detected (NotDetected) 01/14/25 00:17 Coronavirus NL63 (PCR) Not Detected (NotDetected) 01/14/25 00:17 Human Metapneumovir PCR Not Detected (NotDetected) 01/14/25 00:17 Influenza Type A (PCR) Not Detected (NotDetected) 01/14/25 00:17 Influenza Type B (PCR) Not Detected (NotDetected) 01/14/25 00:17 M. pneumoniae (PCR) Not Detected (NotDetected) 01/14/25 00:17 Parainfluenza 1 (PCR) Not Detected (NotDetected) 01/14/25 00:17 Parainfluenza 2 (PCR) Not Detected (NotDetected) 01/14/25 00:17 Parainfluenza 3 (PCR) Not Detected (NotDetected) 01/14/25 00:17 Parainfluenza 4 (PCR) Not Detected (NotDetected) 01/14/25 00:17 RSV (PCR) Not Detected (NotDetected) 01/14/25 00:17 Entero/Rhino (PCR) Not Detected (NotDetected) 01/14/25 00:17 Impressions Chest CTA 01/14/25 03:17 EXAM: CT angio chest PE protocol CLINICAL HISTORY: Dyspnea TECHNIQUE: Contiguous axial images were obtained from the neck base through the upper abdomen following intravenous administration of iodinated contrast material. Angiographic images were processed, 3D MIP images were acquired for interpretation. If IV contrast material had not been administered, the likelihood of detecting abnormalities relevant to the patient's condition would have been substantially decreased. Coronal and sagittal 3-D MIPs were likewise performed and indicated to increase the sensitivity of detecting diffuse clinically relevant pathology. CT scan was performed according to ALARA (as low as reasonable achievable). COMPARISON: None. FINDINGS: Adequate contrast bolus without evidence of pulmonary embolism. Mild smooth interlobular septal thickening is seen in the lungs, especially in the lower lobes. Few confluent areas of ground glass attenuation are seen in the central peribronchovascular location. The central airways are patent. No pleural effusion. The heart, aorta, and pulmonary arteries are of normal size and configuration. No pericardial effusion is identified. There are no appreciable coronary artery and aortic atherosclerotic calcifications. The thyroid is unremarkable. No mediastinal, hilar, or axillary lymphadenopathy is noted. No suspicious lytic or sclerotic osseous lesions are identified. IMPRESSION: 1. No evidence of pulmonary embolism. 2. Mild smooth interlobular septal thickening in lungs with confluent areas of ground glass attenuation in central peribronchovascular location - suggestive of mild pulmonary edema. Electronically signed by Jovani Dwyer 01-14-2025 05:34 AM Diagnostic Findings EKG as per my interpretation :Rate 80, NSR, normal axis, no ischemia
[2025-01-14] MEDS ORDERED: LORATADINE 10 MG TAB PO PRN (06:41)
[2025-01-14] MEDS ORDERED: ACETAMINOPHEN 325 MG TAB PO PRN (06:41)
[2025-01-14] MEDS ORDERED: PROMETHAZINE 12.5 MG/50.5 ML BAG IV PRN (06:41)
[2025-01-14] MEDS: cefTRIAXone SODIUM 2,000 MG/50 ML BAG IV STA (06:42)
[2025-01-14] MEDS: FUROSEMIDE INJ 20 MG/2 ML VIAL IV STA (06:42)
[2025-01-14] MEDS: POTASSIUM CHLORIDE CRTAB 20 MEQ TABCR PO STA (06:42)
[2025-01-14] MEDS ORDERED: ACETAMINOPHEN 500 MG TAB PO PRN (06:46)
[2025-01-14 07:03] LABS: Calcium 10.3 mg/dl (8.6-10.3)
[2025-01-14 07:12] LABS: INR 1.0 (0.9-1.1); Prothrombin Time 10.7 Seconds (9.0-12.0)
[2025-01-14 07:23] LABS: Thyroid Stimulating Hormone 1.248 uIu/ml (0.300-4.500)
[2025-01-14] MEDS: LEVALBUTEROL 1.25 MG/3 ML NEB NEB SCH (07:23)
[2025-01-14] MEDS: IPRATROPIUM BROMIDE NEB SOLN 0.02% 0.5MG/2.5ML VIAL INH SCH (07:23)
[2025-01-14] MEDS: DOXYCYCLINE HYCLATE 100 MG in DEXTROSE 5% MINI-B 100 ML IV STA (07:27)
[2025-01-14] MEDS: guaiFENesin 600 MG TABCR PO STA (07:32)
[2025-01-14 08:40] LABS: Hemoglobin A1C 7.1 % (4.5-5.6)
[2025-01-14 08:46] LABS: Alanine Aminotransferase 126.0 U/L (7-52); Albumin Level 4.2 gm/dl (3.4-5.0); Alkaline Phosphatase 103.0 U/L (34-104); Bilirubin,Total 0.8 mg/dl (0.2-1.0); Total Protein 7.5 gm/dl (6.0-8.3)
--- NOTE | 2025-01-14 09:09 | Ultrasound Report ---
ULTRASOUND BILATERAL LOWER EXTREMITY VENOUS CLINICAL HISTORY: Lower extremity edema. COMPARISON STUDY: No priors TECHNIQUE: Real-time, grayscale, and color Doppler sonography of the deep veins of the right and left lower extremity was performed from the inguinal crease to the calf. Compression and augmentation wer e utilized. FINDINGS: There is no sonographic evidence of deep venous thrombosis identified in the right or left lower extremity. The common femoral, superficial femoral, and popliteal veins are patent and normally compressible bilaterally. The greater saphenous vein and the profunda femoris vein at the junction w ith the common femoral vein are clear in both legs. The visualized calf veins are patent bilaterally. IMPRESSION: There is no sonographic evidence of deep venous thrombosis identified in the right or lef t lower extremity. ACT 112: Negative or not required by law. Electronically signed by: Andres Pappas M.D. 01/14/2025 9:07 AM
[2025-01-14] MEDS ORDERED: CARBOHYDRATES FOR HYPOGLYCEMIA PO PRN (09:26)
[2025-01-14] MEDS ORDERED: GLUCOSE 40% GEL 15 GM TUBE PO PRN (09:26)
[2025-01-14] MEDS ORDERED: DEXTROSE 50% 50 ML SYRINGE IV PRN (09:26)
[2025-01-14] MEDS ORDERED: GLUCAGON FOR INJ 1 MG VIAL SQ PRN (09:26)
[2025-01-14] MEDS ORDERED: GLUCOSE 10 TAB/TUBE PO PRN (09:26)
[2025-01-14 10:07] LABS: Partial Thromboplastin Time 22 Seconds (21-31)
[2025-01-14] MEDS ORDERED: ALBUT/IPRATROP 3MG/0.5MG NEB 3 ML VIAL NEB PRN (10:11)
[2025-01-14] MEDS: HEPARIN 25000 UNIT/500 ML D5W 25,000 UNITS/500 ML BAG IV SCH (10:14)
[2025-01-14] MEDS: Heparin IV Adult Wt-Based Standard w/ INITIAL Bolus Protocol IV STA (10:15)
[2025-01-14] MEDS: HEPARIN SOD (PORCINE) 1000 UNIT/ML IV ONE (10:15)
[2025-01-14] MEDS: LOSARTAN POTASSIUM 50 MG TAB PO SCH (10:19)
[2025-01-14] MEDS: MULTIVITAMIN TAB PO SCH (10:19)
[2025-01-14] MEDS: POTASSIUM CHLORIDE CRTAB 20 MEQ TABCR PO SCH (10:21)
[2025-01-14] MEDS: INSULIN ASPART PER UNIT CHARGE SC SCH (10:34)
[2025-01-14] MEDS: LANTUS PER UNIT CHARGE SQ SCH (10:35)
[2025-01-14] MEDS: NICOTINE 14 MG/24 HR PATCH TD SCH (11:00)
--- NOTE | 2025-01-14 11:51 | Electrocardiogram Report ---
Test Reason : Blood Pressure : */* mmHG Vent. Rate : 79 BPM Atrial Rate : 79 BPM P-R Int : 144 ms QRS Dur : 78 ms QT Int : 368 ms P-R-T Axes : 40 24 63 degrees QTcB Int : 421 ms Normal sinus rhythm Nonspecific ST abnormality Abnormal ECG When compared with ECG of 16-Apr-2017 17:18, No significant change was found Confirmed by Waylon Mims ([id number]) on 01/14/2025 11:51:04 AM Referred By: REFERRED SELF Confirmed By: Waylon Mims
--- NOTE | 2025-01-14 11:51 | Electrocardiogram Report ---
Test Reason : Blood Pressure : */* mmHG Vent. Rate : 98 BPM Atrial Rate : 98 BPM P-R Int : 138 ms QRS Dur : 76 ms QT Int : 322 ms P-R-T Axes : 51 27 72 degrees QTcB Int : 411 ms Normal sinus rhythm Possible Left atrial enlargement Nonspecific ST abnormality Abnormal ECG When compared with ECG of 14-Jan-2025 03:40, (unconfirmed) No significant change was found Confirmed by Waylon Mims ([id number]) on 01/14/2025 11:51:11 AM Referred By: REFERRED SELF Confirmed By: Waylon Mims
[2025-01-14] MEDS: POTASSIUM CHLORIDE 20 MEQ/15 ML UDC PO SCH (13:40)
[2025-01-14] MEDS: FUROSEMIDE 40 MG/4 ML VIAL IV ONE (14:20)
--- NOTE | 2025-01-14 14:32 | XCELERA ---
[id number]
--- NOTE | 2025-01-14 15:38 | Hospitalist Progress Note ---
Date of Service January 14, 2025 Assessment & Plan (1) Non-STEMI (non-ST elevated myocardial infarction): (2) Acute heart failure with mildly reduced ejection fraction (HFmrEF, 41-49%): (3) Acute passive congestion of liver: (4) Rheumatoid arthritis: (5) Reactive airway disease: (6) Diabetes mellitus type 2 with complications: Plan Patient 54-year-old female with symptoms, troponins and echocardiogram most consistent with acute coronary syndrome and decompensated heart failure. Patient is critically ill. She needs hospital level care, monitoring, interventions and specialty consultation. High risk for further complications if not treated in the hospital. IV heparin started this morning Continue to trend troponins until peaked Additional diuretics Work towards starting goal-directed medical therapy for decreased ejection fraction, would benefit from Jardiance, Coreg versus Toprol in addition to ARB Replace potassium Leukocytosis most likely due to recent steroid use Continue other treatments for chronic medical issues as ordered Further ischemic eval per cardiology recommendations Admission and Anticipated Discharge Date Admission Date: January 14, 2025 Subjective Patient seen multiple times throughout the day. This morning was in a fair amount of respiratory distress. She continues to deny any significant chest pain. This afternoon much improved after receiving additional Lasix and some nebulizer treatments. Physical Exam Physical Exam: Constitutional: Alert, nontoxic HEENT: Mucous membranes moist. Lungs: Decreased breath sounds, Rales at bases bilaterally, few expiratory wheezes CV: S1-S2, regular Abdomen: Soft, nontender, nondistended Extremities: 2+ pitting edema lower extremities Neuro: No focal deficits Psych: Cooperative, normal mood Results & Data Results & Data Vital Signs (Past 12 Hours) Vital Signs Temp Pulse Pulse Pulse Resp BP BP 01/14/25 14:11 74 18 01/14/25 14:08 70 01/14/25 11:23 36.9 C 77 18 102/66 01/14/25 10:39 80 18 01/14/25 09:33 01/14/25 09:33 36.7 C 89 18 115/78 01/14/25 09:31 36.7 C 89 18 115/78 01/14/25 09:18 73 01/14/25 07:20 103 H 01/14/25 07:18 85 22 01/14/25 07:03 105 H 27 H 119/81 01/14/25 05:30 76 24 117/76 01/14/25 05:13 79 16 119/89 01/14/25 05:00 99 H 24 119/89 01/14/25 04:00 95 H 24 141/75 H 01/14/25 03:30 83 19 107/76 Pulse Ox O2 Del Method 01/14/25 14:11 98 Room Air 01/14/25 14:08 01/14/25 11:23 98 Room Air 01/14/25 10:39 95 Room Air 01/14/25 09:33 Room Air 01/14/25 09:33 98 Room Air 01/14/25 09:31 98 Room Air 01/14/25 09:18 01/14/25 07:20 01/14/25 07:18 95 Room Air 01/14/25 07:03 94 01/14/25 05:30 94 Room Air 01/14/25 05:13 93 01/14/25 05:00 94 Room Air 01/14/25 04:00 96 Room Air 01/14/25 03:30 95 Room Air Diagnostic Findings Reviewed imaging, laboratory and diagnostic studies. Pertinent findings as below. Troponins reviewed, trending upward most recent 1063.6 TSH 1.24 PTH 20.3 Hemoglobin A1c 7.1% Respiratory viral panel negative CTA of the chest negative for PE Echocardiogram showed ejection fraction of 45 to 50%. Wall motion abnormality and hypokinesis of apical septal and inferior wall motion Critical Care Time 40 minutes
[2025-01-14] MEDS ORDERED: ONDANSETRON INJ 2 MG/ML 2 ML VIAL IV PRN (15:39)
[2025-01-14 17:00] LABS: ANTI-Xa, UFH(UnfractionatedHep 0.71 IU/ml (0.3-0.7)
[2025-01-14] MEDS: DOXYCYCLINE HYCLATE 100 MG CAP PO SCH (20:19)
--- NOTE | 2025-01-14 20:36 | Cardiology Consultation ---
Date of Consultation January 14, 2025 Assessment & Plan (1) Non-STEMI (non-ST elevated myocardial infarction): start IV heparin i spoke with Dr. Dey interventionalist about an inpt cath this week-i think wednesday too soon possibly /wed as she is still having some SOB from her acute reactive pulmonary process i would also consider a right heart cath echo today show some inferior and septal hypokinesis trend troponins hold statin as LFT mildy elevated but LDL as an outpt was 94 and HDL was 52 (2) Diabetes mellitus type 2 with complications: HgA1c elevated on admission started on insulin (3) Acute bronchitis: treatment per hospitalist (4) Rheumatoid arthritis: on chronic prednisone; RA is a inflammatory process with high risk of having CAD along with it; (5) Acute heart failure with mildly reduced ejection fraction (HFmrEF, 41-49%): she responded to IV lasix i would not continue for now she looks euvolemic on exam today (6) Reactive airway disease: (7) Febrile illness, acute: (8) Pulmonary hypertension: (9) HTN (hypertension): continue toprol and losartan History of Present Illness Reason for Consultation: NSTEMI Requesting Physician: hospitalist Attending Physician: Memo Fam DO History of Present Illness pt came in with worsening SOB/respiratory failure and URI type symptoms for weeks before finally coming into the hospital and then ruled in for ACS prompting cardiology consultation she denies any chest pain and palpitations she did get some IV lasix and tells me she is urinating PMH: RA on chronic prednisone, HTN PSH: b/l TKR and left THR FMH: no SCD Social Hx: Allergies Allergy/AdvReac Type Severity Reaction Status Date / Time peach Allergy Intermediate Hives Verified 01/14/25 03:39 Home Medications Medication Instructions Recorded Confirmed Type acetaminophen 500 mg tablet 1,000 mg PO Q6H PRN Pain 07/13/19 01/14/25 History (Tylenol Extra Strength) loratadine 10 mg tablet 10 mg PO DAILY PRN Allergy Symptoms 07/13/19 01/14/25 History multivitamin 1 tab PO DAILY 07/13/19 01/14/25 History albuterol sulfate 90 mcg/actuation 90 mcg inhalation 1XD 01/14/25 01/14/25 History aerosol inhaler losartan 50 mg tablet 50 mg PO 1XD 01/14/25 01/14/25 History nystatin 100,000 unit/mL oral 100,000 unit PO 1XD 01/14/25 01/14/25 History suspension prednisone 10 mg tablet 10 mg PO DAILY 01/14/25 01/14/25 History tramadol 50 mg tablet 50 mg PO 1XD 01/14/25 01/14/25 History triamterene 37.5 37.5 tab PO 1XD 01/14/25 01/14/25 History mg-hydrochlorothiazide 25 mg tablet Patient History Social History Smoking Status: Current every day smoker Tobacco Type: Cigarettes Cigarettes Per Day: 10; Do You Dip or Chew Tobacco: No; Hx Alcohol Use: No Hx Substance Use: Yes Substance Use Type Other:: CBD Preferred Language: Citizen Of [place] Communication Ability: Effective Public Accountant Required: No Beliefs That Will Affect Care: None Current Living Situation: Family Current Living Situation Comment: lives with cousin Other Information That Helps Us Care for You: No Feels Safe at Home: Yes Safety Concerns: Feels Safe At This Time Assistive Devices: None Review of Systems Review of Systems: All systems reviewed & are unremarkable except as noted in HPI & below Physical Exam Physical Exam: aaox3, NAD,sitting up in chair NC/AT, EOMI Supple No JVD Nrl S1/S2, No murmur + wheezes and decreased BS soft nt/nd trace LE edema b/l skin intact no focal deficits Results & Data Vital Signs (Past 12 Hours) Vital Signs Temp Pulse Pulse Pulse Resp BP Pulse Ox 01/14/25 19:59 91 H 16 97 01/14/25 19:45 36.5 C 89 18 107/69 97 01/14/25 15:58 36.4 C L 79 17 104/70 97 01/14/25 14:11 74 18 98 01/14/25 14:08 70 01/14/25 11:23 36.9 C 77 18 102/66 98 01/14/25 10:39 80 18 95 01/14/25 09:33 01/14/25 09:33 36.7 C 89 18 115/78 98 01/14/25 09:31 36.7 C 89 18 115/78 98 01/14/25 09:18 73 O2 Del Method 01/14/25 19:59 Room Air 01/14/25 19:45 Room Air 01/14/25 15:58 Room Air 01/14/25 14:11 Room Air 01/14/25 14:08 01/14/25 11:23 Room Air 01/14/25 10:39 Room Air 01/14/25 09:33 Room Air 01/14/25 09:33 Room Air 01/14/25 09:31 Room Air 01/14/25 09:18 Laboratory Results Abnormal Lab Results 01/14/25 01/14/25 01/14/25 00:17 03:15 03:28 WBC 21.21 H RBC 4.67 Hgb 13.4 POC Hgb 14.3 Hct 41.3 POC Hct 42 MCV 88.4 MCH 28.7 MCHC 32.4 RDW Std Deviation 48.1 H RDW Coeff of Timothy 14.8 H Plt Count 425 H MPV 9.7 Immature Gran % (Auto) 0.8 Neut % (Auto) 72.8 Lymph % (Auto) 22.6 Lyon % (Auto) 3.4 Eos % (Auto) 0.2 Baso % (Auto) 0.2 Neut # (Auto) 15.43 H Lymph # (Auto) 4.79 H Lyon # (Auto) 0.73 H Eos # (Auto) 0.05 Baso # (Auto) 0.05 Immature Gran # (Auto) 0.16 PT INR APTT PTT Ratio Heparin Anti-Xa, Unfract POC Sodium 137 Sodium 138 POC Potassium 4.3 Potassium 3.4 L POC Chloride 101 Chloride 101 Carbon Dioxide 24 POC Total CO2 25 Anion Gap 13 H POC Anion Gap 16.0 POC BUN 33 H BUN 25 H Creatinine 1.08 POC Creatinine 1.1 Est Cr Clr Drug Dosing 63.2 eGFR 60.66 BUN/Creatinine Ratio 23.1 H Glucose 302 H* POC Glucose POC Glucose (other) 273 H Estimat Average Glucose Hemoglobin A1c Lactate Calcium 11.0 H POC Ioniz Calcium Quincy 1.32 Phosphorus Magnesium 2.0 Total Bilirubin 0.6 Direct Bilirubin AST 156 H ALT 135 H Alkaline Phosphatase 107 H Troponin I High Sens 42.2 H B-Natriuretic Peptide Total Protein 7.3 Albumin 4.2 Globulin 3.1 Albumin/Globulin Ratio 1.4 Procalcitonin TSH HCG, Qual Negative PTH Intact Adenovirus (PCR) Not Detected B. pertussis DNA (PCR) Not Detected B.parapertussis DNA PCR Not Detected C. pneumoniae DNA (PCR) Not Detected Coronavirus OC43 (PCR) Not Detected Coronavirus HKU1 (PCR) Not Detected Coronavirus 229E (PCR) Not Detected SARS-CoV-2 (PCR) Not Detected Coronavirus NL63 (PCR) Not Detected Human Metapneumovir PCR Not Detected Influenza Type A (PCR) Not Detected Influenza Type B (PCR) Not Detected M. pneumoniae (PCR) Not Detected Parainfluenza 1 (PCR) Not Detected Parainfluenza 2 (PCR) Not Detected Parainfluenza 3 (PCR) Not Detected Parainfluenza 4 (PCR) Not Detected RSV (PCR) Not Detected Entero/Rhino (PCR) Not Detected 01/14/25 01/14/25 01/14/25 06:12 06:20 07:20 WBC RBC Hgb POC Hgb Hct POC Hct MCV MCH MCHC RDW Std Deviation RDW Coeff of Timothy Plt Count MPV Immature Gran % (Auto) Neut % (Auto) Lymph % (Auto) Lyon % (Auto) Eos % (Auto) Baso % (Auto) Neut # (Auto) Lymph # (Auto) Lyon # (Auto) Eos # (Auto) Baso # (Auto) Immature Gran # (Auto) PT 10.7 INR 1.0 APTT 22 PTT Ratio 0.8 Heparin Anti-Xa, Unfract POC Sodium Sodium POC Potassium Potassium POC Chloride Chloride Carbon Dioxide POC Total CO2 Anion Gap POC Anion Gap POC BUN BUN Creatinine POC Creatinine Est Cr Clr Drug Dosing eGFR BUN/Creatinine Ratio Glucose POC Glucose POC Glucose (other) Estimat Average Glucose 157 Hemoglobin A1c 7.1 H Lactate 1.9 Calcium 10.3 POC Ioniz Calcium Quincy Phosphorus 2.9 Magnesium Total Bilirubin 0.8 Direct Bilirubin 0.2 AST 93 H ALT 126 H Alkaline Phosphatase 103 Troponin I High Sens 626.8 H* D B-Natriuretic Peptide Total Protein 7.5 Albumin 4.2 Globulin Albumin/Globulin Ratio Procalcitonin 0.15 TSH 1.248 HCG, Qual PTH Intact Adenovirus (PCR) B. pertussis DNA (PCR) B.parapertussis DNA PCR C. pneumoniae DNA (PCR) Coronavirus OC43 (PCR) Coronavirus HKU1 (PCR) Coronavirus 229E (PCR) SARS-CoV-2 (PCR) Coronavirus NL63 (PCR) Human Metapneumovir PCR Influenza Type A (PCR) Influenza Type B (PCR) M. pneumoniae (PCR) Parainfluenza 1 (PCR) Parainfluenza 2 (PCR) Parainfluenza 3 (PCR) Parainfluenza 4 (PCR) RSV (PCR) Entero/Rhino (PCR) 01/14/25 01/14/25 01/14/25 07:25 10:00 10:13 WBC RBC Hgb POC Hgb Hct POC Hct MCV MCH MCHC RDW Std Deviation RDW Coeff of Timothy Plt Count MPV Immature Gran % (Auto) Neut % (Auto) Lymph % (Auto) Lyon % (Auto) Eos % (Auto) Baso % (Auto) Neut # (Auto) Lymph # (Auto) Lyon # (Auto) Eos # (Auto) Baso # (Auto) Immature Gran # (Auto) PT INR APTT PTT Ratio Heparin Anti-Xa, Unfract POC Sodium Sodium POC Potassium Potassium POC Chloride Chloride Carbon Dioxide POC Total CO2 Anion Gap POC Anion Gap POC BUN BUN Creatinine POC Creatinine Est Cr Clr Drug Dosing eGFR BUN/Creatinine Ratio Glucose POC Glucose 187 H POC Glucose (other) Estimat Average Glucose Hemoglobin A1c Lactate Calcium POC Ioniz Calcium [place] Phosphorus Magnesium Total Bilirubin Direct Bilirubin AST ALT Alkaline Phosphatase Troponin I High Sens 1063.6 H* D B-Natriuretic Peptide 87 Total Protein Albumin Globulin Albumin/Globulin Ratio Procalcitonin TSH HCG, Qual PTH Intact 20.3 Adenovirus (PCR) B. pertussis DNA (PCR) B.parapertussis DNA PCR C. pneumoniae DNA (PCR) Coronavirus OC43 (PCR) Coronavirus HKU1 (PCR) Coronavirus 229E (PCR) SARS-CoV-2 (PCR) Coronavirus NL63 (PCR) Human Metapneumovir PCR Influenza Type A (PCR) Influenza Type B (PCR) M. pneumoniae (PCR) Parainfluenza 1 (PCR) Parainfluenza 2 (PCR) Parainfluenza 3 (PCR) Parainfluenza 4 (PCR) RSV (PCR) Entero/Rhino (PCR) 01/14/25 01/14/25 01/14/25 15:47 17:01 19:56 WBC RBC Hgb POC Hgb Hct POC Hct MCV MCH MCHC RDW Std Deviation RDW Coeff of Timothy Plt Count MPV Immature Gran % (Auto) Neut % (Auto) Lymph % (Auto) Lyon % (Auto) Eos % (Auto) Baso % (Auto) Neut # (Auto) Lymph # (Auto) Lyon # (Auto) Eos # (Auto) Baso # (Auto) Immature Gran # (Auto) PT INR APTT PTT Ratio Heparin Anti-Xa, Unfract 0.71 H* POC Sodium Sodium POC Potassium Potassium POC Chloride Chloride Carbon Dioxide POC Total CO2 Anion Gap POC Anion Gap POC BUN BUN Creatinine POC Creatinine Est Cr Clr Drug Dosing eGFR BUN/Creatinine Ratio Glucose POC Glucose 247 H 147 H POC Glucose (other) Estimat Average Glucose Hemoglobin A1c Lactate Calcium POC Ioniz Calcium [place] Phosphorus Magnesium Total Bilirubin Direct Bilirubin AST ALT Alkaline Phosphatase Troponin I High Sens 489.1 H* D B-Natriuretic Peptide Total Protein Albumin Globulin Albumin/Globulin Ratio Procalcitonin TSH HCG, Qual PTH Intact Adenovirus (PCR) B. pertussis DNA (PCR) B.parapertussis DNA PCR C. pneumoniae DNA (PCR) Coronavirus OC43 (PCR) Coronavirus HKU1 (PCR) Coronavirus 229E (PCR) SARS-CoV-2 (PCR) Coronavirus NL63 (PCR) Human Metapneumovir PCR Influenza Type A (PCR) Influenza Type B (PCR) M. pneumoniae (PCR) Parainfluenza 1 (PCR) Parainfluenza 2 (PCR) Parainfluenza 3 (PCR) Parainfluenza 4 (PCR) RSV (PCR) Entero/Rhino (PCR) Laboratory Results - last 24 hr 01/14/25 01/14/25 01/14/25 00:17 03:15 03:28 WBC 21.21 H RBC 4.67 Hgb 13.4 POC Hgb 14.3 Hct 41.3 POC Hct 42 MCV 88.4 MCH 28.7 MCHC 32.4 RDW Std Deviation 48.1 H RDW Coeff of Timothy 14.8 H Plt Count 425 H MPV 9.7 Immature Gran % (Auto) 0.8 Neut % (Auto) 72.8 Lymph % (Auto) 22.6 Lyon % (Auto) 3.4 Eos % (Auto) 0.2 Baso % (Auto) 0.2 Neut # (Auto) 15.43 H Lymph # (Auto) 4.79 H Lyon # (Auto) 0.73 H Eos # (Auto) 0.05 Baso # (Auto) 0.05 Immature Gran # (Auto) 0.16 PT INR APTT PTT Ratio Heparin Anti-Xa, Unfract POC Sodium 137 Sodium 138 POC Potassium 4.3 Potassium 3.4 L POC Chloride 101 Chloride 101 Carbon Dioxide 24 POC Total CO2 25 Anion Gap 13 H POC Anion Gap 16.0 POC BUN 33 H BUN 25 H Creatinine 1.08 POC Creatinine 1.1 Est Cr Clr Drug Dosing 63.2 eGFR 60.66 BUN/Creatinine Ratio 23.1 H Glucose 302 H* POC Glucose POC Glucose (other) 273 H Estimat Average Glucose Hemoglobin A1c Lactate Calcium 11.0 H POC Ioniz Calcium Quin[place] 1.32 Phosphorus Magnesium 2.0 Total Bilirubin 0.6 Direct Bilirubin AST 156 H ALT 135 H Alkaline Phosphatase 107 H Troponin I High Sens 42.2 H B-Natriuretic Peptide Total Protein 7.3 Albumin 4.2 Globulin 3.1 Albumin/Globulin Ratio 1.4 Procalcitonin TSH HCG, Qual Negative PTH Intact Adenovirus (PCR) Not Detected B. pertussis DNA (PCR) Not Detected B.parapertussis DNA PCR Not Detected C. pneumoniae DNA (PCR) Not Detected Coronavirus OC43 (PCR) Not Detected Coronavirus HKU1 (PCR) Not Detected Coronavirus 229E (PCR) Not Detected SARS-CoV-2 (PCR) Not Detected Coronavirus NL63 (PCR) Not Detected Human Metapneumovir PCR Not Detected Influenza Type A (PCR) Not Detected Influenza Type B (PCR) Not Detected M. pneumoniae (PCR) Not Detected Parainfluenza 1 (PCR) Not Detected Parainfluenza 2 (PCR) Not Detected Parainfluenza 3 (PCR) Not Detected Parainfluenza 4 (PCR) Not Detected RSV (PCR) Not Detected Entero/Rhino (PCR) Not Detected 01/14/25 01/14/25 01/14/25 06:12 06:20 07:20 WBC RBC Hgb POC Hgb Hct POC Hct MCV MCH MCHC RDW Std Deviation RDW Coeff of Timothy Plt Count MPV Immature Gran % (Auto) Neut % (Auto) Lymph % (Auto) Lyon % (Auto) Eos % (Auto) Baso % (Auto) Neut # (Auto) Lymph # (Auto) Lyon # (Auto) Eos # (Auto) Baso # (Auto) Immature Gran # (Auto) PT 10.7 INR 1.0 APTT 22 PTT Ratio 0.8 Heparin Anti-Xa, Unfract POC Sodium Sodium POC Potassium Potassium POC Chloride Chloride Carbon Dioxide POC Total CO2 Anion Gap POC Anion Gap POC BUN BUN Creatinine POC Creatinine Est Cr Clr Drug Dosing eGFR BUN/Creatinine Ratio Glucose POC Glucose POC Glucose (other) Estimat Average Glucose 157 Hemoglobin A1c 7.1 H Lactate 1.9 Calcium 10.3 POC Ioniz Calcium Quincy Phosphorus 2.9 Magnesium Total Bilirubin 0.8 Direct Bilirubin 0.2 AST 93 H ALT 126 H Alkaline Phosphatase 103 Troponin I High Sens 626.8 H* D B-Natriuretic Peptide Total Protein 7.5 Albumin 4.2 Globulin Albumin/Globulin Ratio Procalcitonin 0.15 TSH 1.248 HCG, Qual PTH Intact Adenovirus (PCR) B. pertussis DNA (PCR) B.parapertussis DNA PCR C. pneumoniae DNA (PCR) Coronavirus OC43 (PCR) Coronavirus HKU1 (PCR) Coronavirus 229E (PCR) SARS-CoV-2 (PCR) Coronavirus NL63 (PCR) Human Metapneumovir PCR Influenza Type A (PCR) Influenza Type B (PCR) M. pneumoniae (PCR) Parainfluenza 1 (PCR) Parainfluenza 2 (PCR) Parainfluenza 3 (PCR) Parainfluenza 4 (PCR) RSV (PCR) Entero/Rhino (PCR) 01/14/25 01/14/25 01/14/25 07:25 10:00 10:13 WBC RBC Hgb POC Hgb Hct POC Hct MCV MCH MCHC RDW Std Deviation RDW Coeff of Timothy Plt Count MPV Immature Gran % (Auto) Neut % (Auto) Lymph % (Auto) Lyon % (Auto) Eos % (Auto) Baso % (Auto) Neut # (Auto) Lymph # (Auto) Lyon # (Auto) Eos # (Auto) Baso # (Auto) Immature Gran # (Auto) PT INR APTT PTT Ratio Heparin Anti-Xa, Unfract POC Sodium Sodium POC Potassium Potassium POC Chloride Chloride Carbon Dioxide POC Total CO2 Anion Gap POC Anion Gap POC BUN BUN Creatinine POC Creatinine Est Cr Clr Drug Dosing eGFR BUN/Creatinine Ratio Glucose POC Glucose 187 H POC Glucose (other) Estimat Average Glucose Hemoglobin A1c Lactate Calcium POC Ioniz Calcium [place] Phosphorus Magnesium Total Bilirubin Direct Bilirubin AST ALT Alkaline Phosphatase Troponin I High Sens 1063.6 H* D B-Natriuretic Peptide 87 Total Protein Albumin Globulin Albumin/Globulin Ratio Procalcitonin TSH HCG, Qual PTH Intact 20.3 Adenovirus (PCR) B. pertussis DNA (PCR) B.parapertussis DNA PCR C. pneumoniae DNA (PCR) Coronavirus OC43 (PCR) Coronavirus HKU1 (PCR) Coronavirus 229E (PCR) SARS-CoV-2 (PCR) Coronavirus NL63 (PCR) Human Metapneumovir PCR Influenza Type A (PCR) Influenza Type B (PCR) M. pneumoniae (PCR) Parainfluenza 1 (PCR) Parainfluenza 2 (PCR) Parainfluenza 3 (PCR) Parainfluenza 4 (PCR) RSV (PCR) Entero/Rhino (PCR) 01/14/25 01/14/25 01/14/25 15:47 17:01 19:56 WBC RBC Hgb POC Hgb Hct POC Hct MCV MCH MCHC RDW Std Deviation RDW Coeff of Timothy Plt Count MPV Immature Gran % (Auto) Neut % (Auto) Lymph % (Auto) Lyon % (Auto) Eos % (Auto) Baso % (Auto) Neut # (Auto) Lymph # (Auto) Lyon # (Auto) Eos # (Auto) Baso # (Auto) Immature Gran # (Auto) PT INR APTT PTT Ratio Heparin Anti-Xa, Unfract 0.71 H* POC Sodium Sodium POC Potassium Potassium POC Chloride Chloride Carbon Dioxide POC Total CO2 Anion Gap POC Anion Gap POC BUN BUN Creatinine POC Creatinine Est Cr Clr Drug Dosing eGFR BUN/Creatinine Ratio Glucose POC Glucose 247 H 147 H POC Glucose (other) Estimat Average Glucose Hemoglobin A1c Lactate Calcium POC Ioniz Calcium [place] Phosphorus Magnesium Total Bilirubin Direct Bilirubin AST ALT Alkaline Phosphatase Troponin I High Sens 489.1 H* D B-Natriuretic Peptide Total Protein Albumin Globulin Albumin/Globulin Ratio Procalcitonin TSH HCG, Qual PTH Intact Adenovirus (PCR) B. pertussis DNA (PCR) B.parapertussis DNA PCR C. pneumoniae DNA (PCR) Coronavirus OC43 (PCR) Coronavirus HKU1 (PCR) Coronavirus 229E (PCR) SARS-CoV-2 (PCR) Coronavirus NL63 (PCR) Human Metapneumovir PCR Influenza Type A (PCR) Influenza Type B (PCR) M. pneumoniae (PCR) Parainfluenza 1 (PCR) Parainfluenza 2 (PCR) Parainfluenza 3 (PCR) Parainfluenza 4 (PCR) RSV (PCR) Entero/Rhino (PCR) Diagnostic Findings CT PE Protocol: IMPRESSION: 1. No evidence of pulmonary embolism. 2. Mild smooth interlobular septal thickening in lungs with confluent areas of ground glass attenuation in central peribronchovascular location - suggestive of mild pulmonary edema. Echo: EF mildly reduced 45-49% with mild hypokinesis of inferior and septal alaniz Medications Administered Current Inpatient Medications Acetaminophen (Acetaminophen 325 Mg Tab) 650 mg PO Q4H PRN PRN Reason: fever/pain Stop: 02/13/25 06:45 Albuterol (Albut/Ipratrop 3mg/0.5mg Neb 3 Ml Vial) 3 ml NEB Q4H PRN; Protocol PRN Reason: wheeze/sob Stop: 02/13/25 10:10 Dextrose (Dextrose 50% 50 Ml Syringe) 25 - 50 ml IV UD PRN; Protocol PRN Reason: Hypoglycemia Protocol Stop: 02/13/25 09:25 Doxycycline Hyclate (Doxycycline Hyclate 100 Mg Cap) 100 mg PO BID GLENNA Stop: 01/19/25 20:59 Last Admin: 01/14/25 20:19 Dose: 100 mg Empagliflozin (Empagliflozin 10 Mg Tab) 10 mg PO DAILY GLENNA Stop: 02/14/25 08:59 Furosemide (Furosemide 40 Mg/4 Ml Vial) 40 mg IV [id number] GLENNA Stop: 02/14/25 06:59 Glucagon (Glucagon For Inj 1 Mg Vial) 1 mg SQ UD PRN; Protocol PRN Reason: Hypoglycemia Protocol Stop: 02/13/25 09:25 Glucose (Glucose 40% Gel 15 Gm Tube) 15 - 30 gm PO UD PRN; Protocol PRN Reason: Hypoglycemia Protocol Stop: 02/13/25 09:25 Glucose (Glucose 10 Tab/Tube) 4 - 8 tab PO UD PRN; Protocol PRN Reason: Hypoglycemia Protocol Stop: 02/13/25 09:25 Guaifenesin (Guaifenesin Sugar Free 200 Mg/10 Ml Udc) 200 mg PO BID GLENNA Stop: 02/13/25 07:29 Last Admin: 01/14/25 20:19 Dose: 200 mg Heparin Sodium/Dextrose (Heparin 28971 Unit/500 Ml D5w) 25,000 units in 500 mls @ 22 mls/hr IV [id number] GLENNA; Protocol Stop: 02/13/25 08:29 Last Titration: 01/14/25 19:08 Dose: 1,100 units/hr, 22 mls/hr Insulin Aspart (Insulin Aspart Per Unit Charge) 0 units SC ACHS [facility] Stop: 02/13/25 09:25 Last Admin: 01/14/25 20:18 Dose: 1 units Insulin Glargine (Lantus Per Unit Charge) 5 units SQ DAILY [facility] Stop: 02/13/25 09:25 Last Admin: 01/14/25 10:35 Dose: 5 units Ipratropium Castile (Ipratropium Castile Neb Soln 0.02% 0.5mg/2.5ml Vial) 0.5 mg INH QIDR [facility] Stop: 02/13/25 06:59 Last Admin: 01/14/25 19:59 Dose: 0.5 mg Levalbuterol HCl (Levalbuterol 1.25 Mg/3 Ml Neb) 1.25 mg NEB QIDR [facility] Stop: 02/13/25 06:59 Last Admin: 01/14/25 19:59 Dose: 1.25 mg Loratadine (Loratadine 10 Mg Tab) 10 mg PO DAILY PRN PRN Reason: Allergy Symptoms Stop: 02/13/25 06:40 Losartan Potassium (Losartan Potassium 50 Mg Tab) 50 mg PO DAILY [facility] Stop: 02/13/25 08:59 Last Admin: 01/14/25 10:19 Dose: 50 mg Metoprolol Succinate (Metoprolol Succ 25mg Ext Rel Tab) 12.5 mg PO QAM [facility] Stop: 02/14/25 08:59 Miscellaneous (Carbohydrates For Hypoglycemia ) 15 - 30 gm PO UD PRN PRN Reason: Hypoglycemia Protocol Stop: 02/13/25 09:25 Miscellaneous (Remove Nicoderm Patch) 1 each N/A DAILY@0859 [facility] Stop: 02/14/25 08:58 Multivitamins (Multivitamin Tab) 1 tab PO DAILY [facility] Stop: 02/13/25 08:59 Last Admin: 01/14/25 10:19 Dose: 1 tab Nicotine (Nicotine 14 Mg/24 Hr Patch) 1 patch TD QAM [facility] Stop: 02/13/25 10:14 Last Admin: 01/14/25 11:00 Dose: 1 patch Ondansetron HCl (Ondansetron Inj 2 Mg/Ml 2 Ml Vial) 4 mg IV Q6H PRN PRN Reason: Nausea And Vomiting Stop: 02/13/25 15:38 Oxycodone HCl (Oxycodone Hcl Ir 5 Mg Tab (Immediate Release)) 5 mg PO Q4H PRN PRN Reason: Pain Stop: 01/28/25 06:40 Potassium Chloride (Potassium Chloride 20 Meq/15 Ml Udc) 20 meq PO TID [facility] Stop: 02/13/25 13:59 Last Admin: 01/14/25 20:19 Dose: 20 meq Prednisone (Prednisone 10 Mg Tablet) 10 mg PO DAILY [facility] Stop: 02/13/25 08:59 Last Admin: 01/14/25 10:19 Dose: 10 mg Spironolactone (Spironolactone 12.5 Mg Tab) 12.5 mg PO DAILY [facility] Stop: 02/14/25 08:59 PG Care Time/CCT Total # of Minutes Spent Total Time Spent with Patient: Total time spent is greater than 50% in coordination of care (as documented) at patient's floor/unit and/or counseling patient: Prolonged Care Time 90 [place] [address] IN/OBS CONSULT LVL 5,80M Patient Type New History Comprehensive Exam Comprehensive Medical Decision Making High Complexity Diagnoses Non-STEMI (non-ST elevated myocardial infarction) I21.4 Diabetes mellitus type 2 with complications E11.8 Acute bronchitis J20.9 Rheumatoid arthritis M06.9 Acute heart failure with mildly reduced ejection fraction (HFmrEF, 41-49%) I50.21 Reactive airway disease J45.909 Febrile illness, acute R50.9 Pulmonary hypertension I27.20 HTN (hypertension) I10
[2025-01-14] MEDS ORDERED: guaiFENesin 600 MG TABCR PO SCH (21:00)
[2025-01-15 00:11] LABS: ANTI-Xa, UFH(UnfractionatedHep 0.51 IU/ml (0.3-0.7)
[2025-01-15 05:45] LABS: Hematocrit (blood only) 39.7 % (37.0-47.0); Hemoglobin 13.3 g/dL (12.0-16.0); Mean Corpuscular Hemoglobin 29.0 pg (25.0-34.0); Mean Corpuscular Volume 86.5 fL (80.0-100.0); Platelet Count 427 K/uL (130-400); RDW Standard Deviation 47.7 fL (36.4-46.3); Red Blood Count 4.59 M/uL (4.20-5.40); White Blood Count 17.06 K/ul (4.8-10.8)
[2025-01-15 06:02] LABS: Alanine Aminotransferase 83.0 U/L (7-52); Albumin Globulin Ratio 1.1 (0.9-2); Albumin Level 3.8 gm/dl (3.4-5.0); Alkaline Phosphatase 94.0 U/L (34-104); Anion Gap 10.0 (3-11); Bilirubin,Total 1.1 mg/dl (0.2-1.0); Blood Urea Nitrogen 28.0 mg/dl (6-23); Calcium 9.9 mg/dl (8.6-10.3); Carbon Dioxide 28.0 mmol/L (21-32); Chloride 100.0 mmol/L (98-107); Cholesterol 183.0 mg/dl (0-200); Creatinine Clr Calc Pharmacy 58.4 ml/min; Globulin 3.4 gm/dl (2.5-4.0); Glucose 152.0 mg/dl (70-99(Fasting)); HDL Cholesterol 74.0 mg/dl; Magnesium 1.8 mg/dl (1.7-2.4); Potassium 3.7 mmol/L (3.5-5.1); Sodium 138.0 mmol/L (136-145); Total Protein 7.2 gm/dl (6.0-8.3); Triglycerides 162.0 mg/dl (0-150)
[2025-01-15 06:05] LABS: ANTI-Xa, UFH(UnfractionatedHep 0.50 IU/ml (0.3-0.7)
[2025-01-15 06:06] LABS: Immature Granulocytes # (auto) 0.10 K/uL (0.01-0.20); Immature Granulocytes % (auto) 0.6 %
[2025-01-15] MEDS: FUROSEMIDE 40 MG/4 ML VIAL IV SCH (06:21)
[2025-01-15] MEDS: REMOVE NICODERM PATCH SCH (08:11)
[2025-01-15] MEDS: SPIRONOLACTONE 12.5 MG TAB PO SCH (08:13)
[2025-01-15] MEDS: EMPAGLIFLOZIN 10 MG TAB PO SCH (08:13)
[2025-01-15] MEDS: ATORVASTATIN 40 MG TAB PO SCH (08:14)
[2025-01-15] MEDS: METOPROLOL SUCC 25MG EXT REL TAB PO SCH (08:40)
[2025-01-15] MEDS: DOXYCYCLINE SUSP 25 MG/5 ML 60ML PO SCH (09:52)
--- NOTE | 2025-01-15 12:04 | Hospitalist Progress Note ---
Date of Service January 15, 2025 Assessment & Plan (1) Non-STEMI (non-ST elevated myocardial infarction): (2) Acute heart failure with mildly reduced ejection fraction (HFmrEF, 41-49%): (3) Acute passive congestion of liver: (4) Acute bronchitis: (5) Reactive airway disease: (6) Diabetes mellitus type 2 with complications: (7) Rheumatoid arthritis: Plan Patient with acute coronary syndrome in the setting of history of rheumatoid arthritis and acute bronchitis. Patient improving from a bronchitis standpoint, unable to take doxycycline pills will transition to suspension. Guaifenesin liquid. Continue IV heparin in setting of acute coronary syndrome Patient unable to take Toprol XL, this cannot be crushed, transition to low-dose Coreg for systolic heart failure Start statin Start aspirin Continue other medications as prescribed Patient's medical regimen for goal-directed medical therapy of decreased ejection fraction will be limited by her blood pressure. May not be able to tolerate all medications due to hypotension. Continue to evaluate patient's symptoms Reviewed cardiology consultation, evaluating for possible cardiac cath tomorrow. Continue IV diuresis, negative output Monitor electrolytes and renal function Admission and Anticipated Discharge Date Admission Date: January 14, 2025 Subjective Patient reports feeling significantly improved. Breathing is much better. Unfortunately she has significant difficulty swallowing pills. Even the smallest pills are difficult for her. Often crushes pills or uses suspensions. Physical Exam Physical Exam: Constitutional: Alert, nontoxic, no acute distress, significantly improved over yesterday HEENT: Mucous membranes moist. Lungs: Decreased breath sounds, wheezing significantly improved, Rales significantly improved, few crackles at bases CV: S1-S2, regular Abdomen: Soft, nontender, nondistended Extremities: 2+ edema lower extremities Neuro: No focal deficits Psych: Cooperative, normal mood Results & Data Results & Data Vital Signs (Past 12 Hours) Vital Signs Temp Pulse Pulse Resp BP Pulse Ox O2 Del Method 01/15/25 11:41 86 18 96 01/15/25 10:50 36.6 C 93 H 19 96/65 L 97 Room Air 01/15/25 08:11 Room Air 01/15/25 08:02 92 H 01/15/25 07:25 36.4 C L 68 18 115/76 98 Room Air 01/15/25 06:59 89 18 98 Room Air 01/15/25 03:09 36.3 C L 73 18 109/75 100 Room Air Diagnostic Findings Reviewed imaging, laboratory and diagnostic studies. Pertinent findings as below. WBCs 17.0 Hemoglobin 13.3 Electrolytes stable Creatinine 1.12 LFTs improved Troponin trending down Lipid panel reviewed
[2025-01-15] MEDS: ASPIRIN 81 MG ECTAB PO SCH (12:30)
[2025-01-15] MEDS: ASPIRIN 81 MG CHEW PO SCH (12:44)
--- NOTE | 2025-01-15 15:18 | Cardiology Progress Note ---
Date of Service January 15, 2025 Assessment & Plan (1) Non-STEMI (non-ST elevated myocardial infarction): Plan: (2) Diabetes mellitus type 2 with complications: (3) Acute bronchitis: (4) Rheumatoid arthritis: (5) Acute heart failure with mildly reduced ejection fraction (HFmrEF, 41-49%): (6) Reactive airway disease: (7) Febrile illness, acute: (8) Pulmonary hypertension: (9) HTN (hypertension): Plan NSTEMI Acute bronchitis Viral syndrome Rheumatoid arthritis DM Acute HFrEF HTN Azotemia continue IV heparin L & R card cath when patient is able to lay supine repeat CXR continue bronchodilators abx as per hospitalist steroids may have to change Coreg to metoprolol if wheezing persists or worsens elevated LFTs - trending down -> repeat LFTs correct and f/u electrolytes f/u renal function ASA continue anticoagulation GDMT for HFrEF as tolerated keeping HR between 60 to 100 BPM and systolic BP between 100-140 mmHg adjust anti-HTN meds keeping systolic BP between 100-140 mmHg avoid hypovolemia keep patient euvolemic keep LE elevated when sitting 1.5 L / 24 hr fluid restriction strict I&Os salt restriction counseling Admission and Anticipated Discharge Date Admission Date: January 14, 2025 Subjective Patient on exam is sitting in a recliner in NAD; c/o cough is better although still with dark green and brown phlegm no c/o cp, sob, palpitations, dizziness, LOC, leg swelling Review of Systems Review of Systems: as per HPI Physical Exam Physical Exam: Constitutional: sitting in chair in NAD Eyes: anicteric sclerae, pinkish conjunctiva Neck: supple, NT Respiratory: Scattered b/l wheezing, no rales, distant BS Cardiovascular: S1 S2, systolic murmur Gastrointestinal (Abdomen): soft, NT, BS+, no HSM Neurologic: no gross focal motor deficits Results & Data Vital Signs (Past 12 Hours) Vital Signs Temp Pulse Pulse Resp BP Pulse Ox O2 Del Method 01/15/25 13:37 88 01/15/25 11:41 86 18 96 01/15/25 10:50 36.6 C 93 H 19 96/65 L 97 Room Air 01/15/25 08:11 Room Air 01/15/25 08:02 92 H 01/15/25 07:25 36.4 C L 68 18 115/76 98 Room Air 01/15/25 06:59 89 18 98 Room Air Laboratory Results Laboratory Results WBC 17.06 K/ul (4.8-10.8) H 01/15/25 05:28 RBC 4.59 M/uL (4.20-5.40) 01/15/25 05:28 Hgb 13.3 g/dL (12.0-16.0) 01/15/25 05:28 POC Hgb 14.3 g/dl (12.0-16.0) 01/14/25 03:28 Hct 39.7 % (37.0-47.0) 01/15/25 05:28 POC Hct 42 % (37-47) 01/14/25 03:28 MCV 86.5 fL (80.0-100.0) 01/15/25 05:28 MCH 29.0 pg (25.0-34.0) 01/15/25 05:28 MCHC 33.5 g/dL (32.0-36.0) 01/15/25 05:28 RDW Std Deviation 47.7 fL (36.4-46.3) H 01/15/25 05:28 RDW Coeff of Timothy 15.1 % (11.5-14.5) H 01/15/25 05:28 Plt Count 427 K/uL (130-400) H 01/15/25 05:28 MPV 9.6 fL (9.4-12.4) 01/15/25 05:28 Immature Gran % (Auto) 0.6 % 01/15/25 05:28 Neut % (Auto) 50.5 % 01/15/25 05:28 Lymph % (Auto) 42.0 % 01/15/25 05:28 [place] % (Auto) 5.0 % 01/15/25 05:28 Eos % (Auto) 1.5 % 01/15/25 05:28 Baso % (Auto) 0.4 % 01/15/25 05:28 Neut # (Auto) 8.61 K/uL (1.40-6.50) H 01/15/25 05:28 Lymph # (Auto) 7.16 K/uL (1.20-3.40) H 01/15/25 05:28 [place] # (Auto) 0.86 K/uL (0.11-0.59) H 01/15/25 05:28 Eos # (Auto) 0.26 K/uL (0.00-0.50) 01/15/25 05:28 Baso # (Auto) 0.07 K/uL (0.00-0.20) 01/15/25 05:28 Immature Gran # (Auto) 0.10 K/uL (0.01-0.20) 01/15/25 05:28 PT 10.7 Seconds (9.0-12.0) 01/14/25 06:12 INR 1.0 (0.9-1.1) 01/14/25 06:12 APTT 22 Seconds (21-31) 01/14/25 06:12 PTT Ratio 0.8 01/14/25 06:12 Heparin Anti-Xa, Unfract 0.50 IU/ml (0.3-0.7) 01/15/25 05:28 POC Sodium 137 mmol/L (135-144) 01/14/25 03:28 Sodium 138 mmol/L (136-145) 01/15/25 05:28 POC Potassium 4.3 mmol/L (3.3-5.0) 01/14/25 03:28 Potassium 3.7 mmol/L (3.5-5.1) 01/15/25 05:28 POC Chloride 101 mmol/L (101-112) 01/14/25 03:28 Chloride 100 mmol/L (98-107) 01/15/25 05:28 Carbon Dioxide 28 mmol/L (21-32) 01/15/25 05:28 POC Total CO2 25 mmol/L (24-31) 01/14/25 03:28 Anion Gap 10 (3-11) 01/15/25 05:28 POC Anion Gap 16.0 mmol/L (16-25) 01/14/25 03:28 POC BUN 33 mg/dl (7-18) H 01/14/25 03:28 BUN 28 mg/dl (6-23) H 01/15/25 05:28 Creatinine 1.12 mg/dl (0.6-1.2) 01/15/25 05:28 POC Creatinine 1.1 mg/dl (0.6-1.3) 01/14/25 03:28 Est Cr Clr Drug Dosing 58.4 ml/min 01/15/25 05:28 eGFR 58.07 01/15/25 05:28 BUN/Creatinine Ratio 25.0 (10-20) H 01/15/25 05:28 Glucose 152 mg/dl (70-99(Fasting)) H 01/15/25 05:28 POC Glucose 137 mg/dl (70-99) H 01/15/25 11:49 POC Glucose (other) 273 mg/dl (70-99) H 01/14/25 03:28 Estimat Average Glucose 157 mg/dl 01/14/25 06:20 Hemoglobin A1c 7.1 % (4.5-5.6) H 01/14/25 06:20 Lactate 1.9 mmol/L (0.4-2.0) 01/14/25 06:12 Calcium 9.9 mg/dl (8.6-10.3) 01/15/25 05:28 POC Ioniz Calcium [place] 1.32 mmol/l (1.12-1.32) 01/14/25 03:28 Phosphorus 2.9 mg/dl (2.5-4.9) 01/14/25 06:12 Magnesium 1.8 mg/dl (1.7-2.4) 01/15/25 05:28 Total Bilirubin 1.1 mg/dl (0.2-1.0) H 01/15/25 05:28 Direct Bilirubin 0.2 mg/dl (0-0.2) 01/14/25 07:20 AST 31 U/L (13-39) 01/15/25 05:28 ALT 83 U/L (7-52) H 01/15/25 05:28 Alkaline Phosphatase 94 U/L (34-104) 01/15/25 05:28 Troponin I High Sens 489.1 pg/ml (0-14) H* D 01/14/25 15:47 B-Natriuretic Peptide 87 pg/ml (0-100) 01/14/25 07:25 Total Protein 7.2 gm/dl (6.0-8.3) 01/15/25 05:28 Albumin 3.8 gm/dl (3.4-5.0) 01/15/25 05:28 Globulin 3.4 gm/dl (2.5-4.0) 01/15/25 05:28 Albumin/Globulin Ratio 1.1 (0.9-2) 01/15/25 05:28 Triglycerides 162 mg/dl (0-150) H 01/15/25 05:28 Cholesterol 183 mg/dl (0-200) 01/15/25 05:28 LDL Cholesterol, Calc 77 mg/dl 01/15/25 05:28 VLDL Cholesterol, Calc 32 mg/dl (0-30) H 01/15/25 05:28 HDL Cholesterol 74 mg/dl 01/15/25 05:28 Cholesterol/HDL Ratio 2.5 (0-5) 01/15/25 05:28 Procalcitonin 0.15 ng/ml (0-0.5) 01/14/25 06:12 TSH 1.248 uIu/ml (0.300-4.500) 01/14/25 06:12 HCG, Qual Negative (Negative) 01/14/25 03:15 PTH Intact 20.3 pg/ml (12.0-88.0) 01/14/25 07:25 Adenovirus (PCR) Not Detected (NotDetected) 01/14/25 00:17 B. pertussis DNA (PCR) Not Detected (NotDetected) 01/14/25 00:17 B.parapertussis DNA PCR Not Detected (NotDetected) 01/14/25 00:17 C. pneumoniae DNA (PCR) Not Detected (NotDetected) 01/14/25 00:17 Coronavirus OC43 (PCR) Not Detected (NotDetected) 01/14/25 00:17 Coronavirus HKU1 (PCR) Not Detected (NotDetected) 01/14/25 00:17 Coronavirus 229E (PCR) Not Detected (NotDetected) 01/14/25 00:17 SARS-CoV-2 (PCR) Not Detected (NotDetected) 01/14/25 00:17 Coronavirus NL63 (PCR) Not Detected (NotDetected) 01/14/25 00:17 Human Metapneumovir PCR Not Detected (NotDetected) 01/14/25 00:17 Influenza Type A (PCR) Not Detected (NotDetected) 01/14/25 00:17 Influenza Type B (PCR) Not Detected (NotDetected) 01/14/25 00:17 M. pneumoniae (PCR) Not Detected (NotDetected) 01/14/25 00:17 Parainfluenza 1 (PCR) Not Detected (NotDetected) 01/14/25 00:17 Parainfluenza 2 (PCR) Not Detected (NotDetected) 01/14/25 00:17 Parainfluenza 3 (PCR) Not Detected (NotDetected) 01/14/25 00:17 Parainfluenza 4 (PCR) Not Detected (NotDetected) 01/14/25 00:17 RSV (PCR) Not Detected (NotDetected) 01/14/25 00:17 Entero/Rhino (PCR) Not Detected (NotDetected) 01/14/25 00:17 Impressions Chest CTA 01/14/25 03:17 EXAM: CT angio chest PE protocol CLINICAL HISTORY: Dyspnea TECHNIQUE: Contiguous axial images were obtained from the neck base through the upper abdomen following intravenous administration of iodinated contrast material. Angiographic images were processed, 3D MIP images were acquired for interpretation. If IV contrast material had not been administered, the likelihood of detecting abnormalities relevant to the patient's condition would have been substantially decreased. Coronal and sagittal 3-D MIPs were likewise performed and indicated to increase the sensitivity of detecting diffuse clinically relevant pathology. CT scan was performed according to ALARA (as low as reasonable achievable). COMPARISON: None. FINDINGS: Adequate contrast bolus without evidence of pulmonary embolism. Mild smooth interlobular septal thickening is seen in the lungs, especially in the lower lobes. Few confluent areas of ground glass attenuation are seen in the central peribronchovascular location. The central airways are patent. No pleural effusion. The heart, aorta, and pulmonary arteries are of normal size and configuration. No pericardial effusion is identified. There are no appreciable coronary artery and aortic atherosclerotic calcifications. The thyroid is unremarkable. No mediastinal, hilar, or axillary lymphadenopathy is noted. No suspicious lytic or sclerotic osseous lesions are identified. IMPRESSION: 1. No evidence of pulmonary embolism. 2. Mild smooth interlobular septal thickening in lungs with confluent areas of ground glass attenuation in central peribronchovascular location - suggestive of mild pulmonary edema. Electronically signed by Jovani Dwyer 01-14-2025 05:34 AM Venous Doppler Study 01/14/25 06:48 ULTRASOUND BILATERAL LOWER EXTREMITY VENOUS CLINICAL HISTORY: Lower extremity edema. COMPARISON STUDY: No priors TECHNIQUE: Real-time, grayscale, and color Doppler sonography of the deep veins of the right and left lower extremity was performed from the inguinal crease to the calf. Compression and augmentation were utilized. FINDINGS: There is no sonographic evidence of deep venous thrombosis identified in the right or left lower extremity. The common femoral, superficial femoral, and popliteal veins are patent and normally compressible bilaterally. The greater saphenous vein and the profunda femoris vein at the junction with the common femoral vein are clear in both legs. The visualized calf veins are patent bilaterally. IMPRESSION: There is no sonographic evidence of deep venous thrombosis identified in the right or left lower extremity. ACT 112: Negative or not required by law. Electronically signed by: Andres Pappas M.D. 01/14/2025 9:07 AM ECHO 01/14/25 Interpretation Summary Qualitative EF range 45-50% Left ventricular systolic function is mildly reduced. There is a moderate sized apical, septal, and inferior wall motion abnormality with hypokinesis of the segments. Non-dilated cardiac chambers. Aortic valve sclerosis mild, without significant aortic valvular stenosis. There is mild mitral regurgitation. There is mild tricuspid regurgitation. Diagnostic Findings Cardiac Enzymes 01/14/25 01/15/25 Range/Units 15:47 05:28 AST 31 (13-39) U/L Troponin I High Sens 489.1 H* D (0-14) pg/ml Lipids 01/15/25 Range/Units 05:28 Triglycerides 162 H (0-150) mg/dl Cholesterol 183 (0-200) mg/dl HDL Cholesterol 74 mg/dl Cholesterol/HDL Ratio 2.5 (0-5) CBC 01/15/25 Range/Units 05:28 WBC 17.06 H (4.8-10.8) K/ul RBC 4.59 (4.20-5.40) M/uL Hgb 13.3 (12.0-16.0) g/dL Hct 39.7 (37.0-47.0) % Plt Count 427 H (130-400) K/uL Neut # (Auto) 8.61 H (1.40-6.50) K/uL Lymph # (Auto) 7.16 H (1.20-3.40) K/uL [place] # (Auto) 0.86 H (0.11-0.59) K/uL Eos # (Auto) 0.26 (0.00-0.50) K/uL Baso # (Auto) 0.07 (0.00-0.20) K/uL Comprehensive Metabolic Panel 01/15/25 Range/Units 05:28 Sodium 138 (136-145) mmol/L Potassium 3.7 (3.5-5.1) mmol/L Chloride 100 (98-107) mmol/L Carbon Dioxide 28 (21-32) mmol/L BUN 28 H (6-23) mg/dl Creatinine 1.12 (0.6-1.2) mg/dl Glucose 152 H (70-99(Fasting)) mg/dl Calcium 9.9 (8.6-10.3) mg/dl AST 31 (13-39) U/L ALT 83 H (7-52) U/L Alkaline Phosphatase 94 (34-104) U/L Total Protein 7.2 (6.0-8.3) gm/dl Albumin 3.8 (3.4-5.0) gm/dl Intake and Output 01/15/25 01/15/25 01/15/25 06:59 14:59 22:59 Intake Total 846.4 / 1399.1 495.4 / 495.4 Output Total 801 / 2201 Balance 45.4 / -801.9 495.4 / 495.4 Intake: IV 246.4 / 599.1 15.4 / 15.4 Heparin 15290 Unit/500 ml D5w 246.4 / 449.1 15.4 / 15.4 25,000 units In 500 ml @ 1,100 UNITS/HR 22 mls/hr IV .[id number] [facility] Rx#:[id number] Oral 600 / 800 480 / 480 Output: Urine 800 / 1500 # Bowel Movements Other: # Unmeasured Voids 3 Weight 84.4 kg Weight Measurement Method Standing Scale Medications Administered Home Medications Medication Instructions Recorded Confirmed Last Taken acetaminophen 500 mg tablet 1,000 mg PO Q6H PRN Pain 07/13/19 01/14/25 1 Day Ago (Tylenol Extra Strength) ~01/13/25 1000 loratadine 10 mg tablet 10 mg PO DAILY PRN Allergy Symptoms 07/13/19 01/14/25 1 Day Ago ~01/13/25 10 multivitamin 1 tab PO DAILY 07/13/19 01/14/25 2 Days Ago ~01/12/25 albuterol sulfate 90 mcg/actuation 90 mcg inhalation 1XD 01/14/25 01/14/25 1 Day Ago aerosol inhaler ~01/13/25 90 losartan 50 mg tablet 50 mg PO 1XD 01/14/25 01/14/25 1 Day Ago ~01/13/25 0.2 nystatin 100,000 unit/mL oral 100,000 unit PO 1XD 01/14/25 01/14/25 1 Day Ago suspension ~01/13/25 prednisone 10 mg tablet 10 mg PO DAILY 01/14/25 01/14/25 Unknown tramadol 50 mg tablet 50 mg PO 1XD 01/14/25 01/14/25 1 Day Ago ~01/13/25 50 triamterene 37.5 37.5 tab PO 1XD 01/14/25 01/14/25 1 Day Ago mg-hydrochlorothiazide 25 mg tablet ~01/13/25 Active Medications Generic Name Dose Route Start Last Admin Trade Name Freq PRN Reason Stop Dose Admin Aspirin 81 mg 01/15/25 12:30 01/15/25 12:44 Aspirin 81 Mg Chew PO 02/14/25 12:29 81 mg DAILY GLENNA Administration Atorvastatin Calcium 40 mg 01/15/25 09:00 01/15/25 08:14 Atorvastatin 40 Mg Tab PO 02/14/25 08:59 40 mg QAM GLENNA Administration Carvedilol 3.125 mg 01/15/25 09:15 01/15/25 09:51 Carvedilol 3.125 Mg Tab PO 02/14/25 09:14 3.125 mg BIDM GLENNA Administration Doxycycline Monohydrate 100 mg 01/15/25 09:15 01/15/25 09:52 Doxycycline Susp 25 Mg/5 Ml 60ml PO 01/20/25 09:14 100 mg BID GLENNA Administration Empagliflozin 10 mg 01/15/25 09:00 01/15/25 08:13 Empagliflozin 10 Mg Tab PO 02/14/25 08:59 10 mg DAILY GLENNA Administration Furosemide 40 mg 01/15/25 07:00 01/15/25 14:15 Furosemide 40 Mg/4 Ml Vial IV 02/14/25 06:59 40 mg [id number] GLENNA Administration Guaifenesin 200 mg 01/14/25 07:30 01/15/25 08:14 Guaifenesin Sugar Free 200 Mg/10 Ml Udc PO 02/13/25 07:29 200 mg BID GLENNA Administration Heparin Sodium/Dextrose 25,000 units in 500 mls @ 22 mls/hr 01/14/25 08:30 01/15/25 07:02 Heparin 08924 Unit/500 Ml D5w IV 02/13/25 08:29 1,100 units/hr .[id number] GLENNA 22 mls/hr Titration Protocol 1,100 UNITS/HR Insulin Aspart 0 units 01/14/25 09:26 01/15/25 12:11 Insulin Aspart Per Unit Charge SC 02/13/25 09:25 3 units ACHS GLENNA Administration Insulin Glargine 5 units 01/14/25 09:26 01/15/25 08:44 Lantus Per Unit Charge SQ 02/13/25 09:25 5 units DAILY GLENNA Administration Ipratropium [place] 0.5 mg 01/14/25 07:00 01/15/25 14:13 Ipratropium [place] Neb Soln 0.02% 0.5mg/2.5ml Vial INH 02/13/25 06:59 Not Given QIDR GLENNA Levalbuterol HCl 1.25 mg 01/14/25 07:00 01/15/25 14:14 Levalbuterol 1.25 Mg/3 Ml Neb NEB 02/13/25 06:59 Not Given QIDR GLENNA Losartan Potassium 50 mg 01/14/25 09:00 01/15/25 08:12 Losartan Potassium 50 Mg Tab PO 02/13/25 08:59 50 mg DAILY GLENNA Administration Miscellaneous 1 each 01/15/25 08:59 01/15/25 08:11 Remove Nicoderm Patch N/A 02/14/25 08:58 1 each DAILY@[id number] GLENNA Administration Multivitamins 1 tab 01/14/25 09:00 01/15/25 08:11 Multivitamin Tab PO 02/13/25 08:59 1 tab DAILY GLENNA Administration Nicotine 1 patch 01/14/25 10:15 01/15/25 08:11 Nicotine 14 Mg/24 Hr Patch TD 02/13/25 10:14 1 patch QAM GLENNA Administration Potassium Chloride 20 meq 01/14/25 14:00 01/15/25 14:14 Potassium Chloride 20 Meq/15 Ml Udc PO 02/13/25 13:59 20 meq TID GLENNA Administration Prednisone 10 mg 01/14/25 09:00 01/15/25 08:12 Prednisone 10 Mg Tablet PO 02/13/25 08:59 10 mg DAILY GLENNA Administration Spironolactone 12.5 mg 01/15/25 09:00 01/15/25 08:13 Spironolactone 12.5 Mg Tab PO 02/14/25 08:59 12.5 mg DAILY GLENNA Administration PG Care Time/CCT Total # of Minutes Spent Total Time Spent with Patient: Total time spent is greater than 50% in coordination of care (as documented) at patient's floor/unit and/or counseling patient: Coding Level of Care Code 99216 SUB INP/OBS CARE 3/50MIN Diagnoses Non-STEMI (non-ST elevated myocardial infarction) I21.4 Diabetes mellitus type 2 with complications E11.8 Acute bronchitis J20.9 Rheumatoid arthritis M06.9 Acute heart failure with mildly reduced ejection fraction (HFmrEF, 41-49%) I 50.21 Reactive airway disease J45.909 Febrile illness, acute R50.9 Pulmonary hypertension I27.20 HTN (hypertension) I10
--- NOTE | 2025-01-15 17:16 | XRay Report ---
Technique: PA and lateral views of the chest were obtained Comparison is made to the prior examination dated 04/16/2017 Findings: There are no confluent pulmonary infiltrates. The heart size is within normal limits. No pleural effusion or pneumothorax is seen. There is no definite pulmonary nodule. No fracture is noted. No foreign body is seen Impression: No active disease Electronically signed by Scott Kirby 01-15-2025 5:16 PM
[2025-01-16] MEDS ORDERED: SODIUM CHLORIDE 0.65% NA SOLN 45 ML (OCEAN) PRN (01:13)
[2025-01-16 06:16] LABS: Anion Gap 13.0 (3-11); Blood Urea Nitrogen 39.0 mg/dl (6-23); Calcium 9.9 mg/dl (8.6-10.3); Carbon Dioxide 26.0 mmol/L (21-32); Chloride 98.0 mmol/L (98-107); Creatinine Clr Calc Pharmacy 55.0 ml/min; Glucose 137.0 mg/dl (70-99(Fasting)); Magnesium 1.9 mg/dl (1.7-2.4); Potassium 3.3 mmol/L (3.5-5.1); Sodium 137.0 mmol/L (136-145)
[2025-01-16 06:21] LABS: ANTI-Xa, UFH(UnfractionatedHep 0.40 IU/ml (0.3-0.7)
[2025-01-16] MEDS ORDERED: FUROSEMIDE 40 MG/4 ML VIAL IV SCH (07:00)
[2025-01-16] MEDS ORDERED: POTASSIUM CHLORIDE 20 MEQ/15 ML UDC PO SCH (09:00)
[2025-01-16] MEDS: POTASSIUM CHLORIDE 20 MEQ/15 ML UDC PO SCH (09:10)
[2025-01-16] MEDS: LOSARTAN POTASSIUM 25 MG TAB PO SCH (09:11)
--- NOTE | 2025-01-16 10:41 | Cardiology Progress Note ---
Date of Service January 16, 2025 Assessment & Plan (1) Non-STEMI (non-ST elevated myocardial infarction): Plan: (2) Diabetes mellitus type 2 with complications: (3) Acute bronchitis: (4) Rheumatoid arthritis: (5) Acute heart failure with mildly reduced ejection fraction (HFmrEF, 41-49%): (6) Reactive airway disease: (7) Febrile illness, acute: (8) Pulmonary hypertension: (9) HTN (hypertension): Plan NSTEMI - asymptomatic Acute bronchitis - persistent - defer to hospitalsist Viral syndrome - persistent - defer to hospitalist Rheumatoid arthritis DM Acute HFrEF - resolved HTN - stable Azotemia DC IV heparin DVT proph - defer to hospitalist L & R card cath when patient is able to lay supine repeat CXR - no acute infiltrates, no effusion bronchodilators round the clock abx as per hospitalist steroids - ?increase - defer to hospitalist change Coreg to metoprolol as wheezing persists repeat LFTs - defer to hospitalist statin as tolerated correct and f/u electrolytes f/u renal function ASA GDMT for HFrEF as tolerated keeping HR between 60 to 100 BPM and systolic BP between 100-140 mmHg adjust anti-HTN meds keeping systolic BP between 100-140 mmHg avoid hypovolemia keep patient euvolemic keep LE elevated when sitting DC fluid restriction strict I&Os salt restriction counseling Admission and Anticipated Discharge Date Admission Date: January 14, 2025 Subjective Patient on exam is sitting in a recliner in NAD; continues to have c/o cough although still with thick dark green and brown phlegm no c/o cp, sob, palpitations, dizziness, LOC, leg swelling unable to lay supine due to cough and associated discomfort Review of Systems Review of Systems: as per HPI Physical Exam Physical Exam: Constitutional: sitting in recliner in NAD Eyes: anicteric sclerae, pink conjunctiva Neck: supple, NT, no JVD Respiratory: distant BS, no rales, mild scattered wheezing Cardiovascular: S1 S2, sys murmur Gastrointestinal (Abdomen): soft, NT, BS+ Neurologic: no gross focal motor deficits Results & Data Vital Signs (Past 12 Hours) Vital Signs Temp Pulse Pulse Resp BP Pulse Ox O2 Del Method 01/16/25 07:41 72 16 98 Room Air 01/16/25 07:21 36.4 C L 75 20 117/80 97 Room Air 01/16/25 07:00 64 01/16/25 02:43 36.5 C 73 18 114/78 98 Room Air Laboratory Results Laboratory Results WBC 17.06 K/ul (4.8-10.8) H 01/15/25 05:28 RBC 4.59 M/uL (4.20-5.40) 01/15/25 05:28 Hgb 13.3 g/dL (12.0-16.0) 01/15/25 05:28 POC Hgb 14.3 g/dl (12.0-16.0) 01/14/25 03:28 Hct 39.7 % (37.0-47.0) 01/15/25 05:28 POC Hct 42 % (37-47) 01/14/25 03:28 MCV 86.5 fL (80.0-100.0) 01/15/25 05:28 MCH 29.0 pg (25.0-34.0) 01/15/25 05:28 MCHC 33.5 g/dL (32.0-36.0) 01/15/25 05:28 RDW Std Deviation 47.7 fL (36.4-46.3) H 01/15/25 05:28 RDW Coeff of Timothy 15.1 % (11.5-14.5) H 01/15/25 05:28 Plt Count 427 K/uL (130-400) H 01/15/25 05:28 MPV 9.6 fL (9.4-12.4) 01/15/25 05:28 Immature Gran % (Auto) 0.6 % 01/15/25 05:28 Neut % (Auto) 50.5 % 01/15/25 05:28 Lymph % (Auto) 42.0 % 01/15/25 05:28 Terry % (Auto) 5.0 % 01/15/25 05:28 Eos % (Auto) 1.5 % 01/15/25 05:28 Baso % (Auto) 0.4 % 01/15/25 05:28 Neut # (Auto) 8.61 K/uL (1.40-6.50) H 01/15/25 05:28 Lymph # (Auto) 7.16 K/uL (1.20-3.40) H 01/15/25 05:28 Terry # (Auto) 0.86 K/uL (0.11-0.59) H 01/15/25 05:28 Eos # (Auto) 0.26 K/uL (0.00-0.50) 01/15/25 05:28 Baso # (Auto) 0.07 K/uL (0.00-0.20) 01/15/25 05:28 Immature Gran # (Auto) 0.10 K/uL (0.01-0.20) 01/15/25 05:28 PT 10.7 Seconds (9.0-12.0) 01/14/25 06:12 INR 1.0 (0.9-1.1) 01/14/25 06:12 APTT 22 Seconds (21-31) 01/14/25 06:12 PTT Ratio 0.8 01/14/25 06:12 Heparin Anti-Xa, Unfract 0.40 IU/ml (0.3-0.7) 01/16/25 05:36 POC Sodium 137 mmol/L (135-144) 01/14/25 03:28 Sodium 137 mmol/L (136-145) 01/16/25 05:36 POC Potassium 4.3 mmol/L (3.3-5.0) 01/14/25 03:28 Potassium 3.3 mmol/L (3.5-5.1) L 01/16/25 05:36 POC Chloride 101 mmol/L (101-112) 01/14/25 03:28 Chloride 98 mmol/L (98-107) 01/16/25 05:36 Carbon Dioxide 26 mmol/L (21-32) 01/16/25 05:36 POC Total CO2 25 mmol/L (24-31) 01/14/25 03:28 Anion Gap 13 (3-11) H 01/16/25 05:36 POC Anion Gap 16.0 mmol/L (16-25) 01/14/25 03:28 POC BUN 33 mg/dl (7-18) H 01/14/25 03:28 BUN 39 mg/dl (6-23) H 01/16/25 05:36 Creatinine 1.18 mg/dl (0.6-1.2) 01/16/25 05:36 POC Creatinine 1.1 mg/dl (0.6-1.3) 01/14/25 03:28 Est Cr Clr Drug Dosing 55.0 ml/min 01/16/25 05:36 eGFR 54.55 01/16/25 05:36 BUN/Creatinine Ratio 33.1 (10-20) H 01/16/25 05:36 Glucose 137 mg/dl (70-99(Fasting)) H 01/16/25 05:36 POC Glucose 167 mg/dl (70-99) H 01/16/25 07:56 POC Glucose (other) 273 mg/dl (70-99) H 01/14/25 03:28 Estimat Average Glucose 157 mg/dl 01/14/25 06:20 Hemoglobin A1c 7.1 % (4.5-5.6) H 01/14/25 06:20 Lactate 1.9 mmol/L (0.4-2.0) 01/14/25 06:12 Calcium 9.9 mg/dl (8.6-10.3) 01/16/25 05:36 POC Ioniz Calcium [place] 1.32 mmol/l (1.12-1.32) 01/14/25 03:28 Phosphorus 2.9 mg/dl (2.5-4.9) 01/14/25 06:12 Magnesium 1.9 mg/dl (1.7-2.4) 01/16/25 05:36 Total Bilirubin 1.1 mg/dl (0.2-1.0) H 01/15/25 05:28 Direct Bilirubin 0.2 mg/dl (0-0.2) 01/14/25 07:20 AST 31 U/L (13-39) 01/15/25 05:28 ALT 83 U/L (7-52) H 01/15/25 05:28 Alkaline Phosphatase 94 U/L (34-104) 01/15/25 05:28 Troponin I High Sens 489.1 pg/ml (0-14) H* D 01/14/25 15:47 B-Natriuretic Peptide 87 pg/ml (0-100) 01/14/25 07:25 Total Protein 7.2 gm/dl (6.0-8.3) 01/15/25 05:28 Albumin 3.8 gm/dl (3.4-5.0) 01/15/25 05:28 Globulin 3.4 gm/dl (2.5-4.0) 01/15/25 05:28 Albumin/Globulin Ratio 1.1 (0.9-2) 01/15/25 05:28 Triglycerides 162 mg/dl (0-150) H 01/15/25 05:28 Cholesterol 183 mg/dl (0-200) 01/15/25 05:28 LDL Cholesterol, Calc 77 mg/dl 01/15/25 05:28 VLDL Cholesterol, Calc 32 mg/dl (0-30) H 01/15/25 05:28 HDL Cholesterol 74 mg/dl 01/15/25 05:28 Cholesterol/HDL Ratio 2.5 (0-5) 01/15/25 05:28 Procalcitonin 0.15 ng/ml (0-0.5) 01/14/25 06:12 TSH 1.248 uIu/ml (0.300-4.500) 01/14/25 06:12 HCG, Qual Negative (Negative) 01/14/25 03:15 PTH Intact 20.3 pg/ml (12.0-88.0) 01/14/25 07:25 Adenovirus (PCR) Not Detected (NotDetected) 01/14/25 00:17 B. pertussis DNA (PCR) Not Detected (NotDetected) 01/14/25 00:17 B.parapertussis DNA PCR Not Detected (NotDetected) 01/14/25 00:17 C. pneumoniae DNA (PCR) Not Detected (NotDetected) 01/14/25 00:17 Coronavirus OC43 (PCR) Not Detected (NotDetected) 01/14/25 00:17 Coronavirus HKU1 (PCR) Not Detected (NotDetected) 01/14/25 00:17 Coronavirus 229E (PCR) Not Detected (NotDetected) 01/14/25 00:17 SARS-CoV-2 (PCR) Not Detected (NotDetected) 01/14/25 00:17 Coronavirus NL63 (PCR) Not Detected (NotDetected) 01/14/25 00:17 Human Metapneumovir PCR Not Detected (NotDetected) 01/14/25 00:17 Influenza Type A (PCR) Not Detected (NotDetected) 01/14/25 00:17 Influenza Type B (PCR) Not Detected (NotDetected) 01/14/25 00:17 M. pneumoniae (PCR) Not Detected (NotDetected) 01/14/25 00:17 Parainfluenza 1 (PCR) Not Detected (NotDetected) 01/14/25 00:17 Parainfluenza 2 (PCR) Not Detected (NotDetected) 01/14/25 00:17 Parainfluenza 3 (PCR) Not Detected (NotDetected) 01/14/25 00:17 Parainfluenza 4 (PCR) Not Detected (NotDetected) 01/14/25 00:17 RSV (PCR) Not Detected (NotDetected) 01/14/25 00:17 Entero/Rhino (PCR) Not Detected (NotDetected) 01/14/25 00:17 Impressions Chest CTA 01/14/25 03:17 EXAM: CT angio chest PE protocol CLINICAL HISTORY: Dyspnea TECHNIQUE: Contiguous axial images were obtained from the neck base through the upper abdomen following intravenous administration of iodinated contrast material. Angiographic images were processed, 3D MIP images were acquired for interpretation. If IV contrast material had not been administered, the likelihood of detecting abnormalities relevant to the patient's condition would have been substantially decreased. Coronal and sagittal 3-D MIPs were likewise performed and indicated to increase the sensitivity of detecting diffuse clinically relevant pathology. CT scan was performed according to ALARA (as low as reasonable achievable). COMPARISON: None. FINDINGS: Adequate contrast bolus without evidence of pulmonary embolism. Mild smooth interlobular septal thickening is seen in the lungs, especially in the lower lobes. Few confluent areas of ground glass attenuation are seen in the central peribronchovascular location. The central airways are patent. No pleural effusion. The heart, aorta, and pulmonary arteries are of normal size and configuration. No pericardial effusion is identified. There are no appreciable coronary artery and aortic atherosclerotic calcifications. The thyroid is unremarkable. No mediastinal, hilar, or axillary lymphadenopathy is noted. No suspicious lytic or sclerotic osseous lesions are identified. IMPRESSION: 1. No evidence of pulmonary embolism. 2. Mild smooth interlobular septal thickening in lungs with confluent areas of ground glass attenuation in central peribronchovascular location - suggestive of mild pulmonary edema. Electronically signed by Jovani Dwyer 01-14-2025 05:34 AM Venous Doppler Study 01/14/25 06:48 ULTRASOUND BILATERAL LOWER EXTREMITY VENOUS CLINICAL HISTORY: Lower extremity edema. COMPARISON STUDY: No priors TECHNIQUE: Real-time, grayscale, and color Doppler sonography of the deep veins of the right and left lower extremity was performed from the inguinal crease to the calf. Compression and augmentation were utilized. FINDINGS: There is no sonographic evidence of deep venous thrombosis identified in the right or left lower extremity. The common femoral, superficial femoral, and popliteal veins are patent and normally compressible bilaterally. The greater saphenous vein and the profunda femoris vein at the junction with the common femoral vein are clear in both legs. The visualized calf veins are patent bilaterally. IMPRESSION: There is no sonographic evidence of deep venous thrombosis identified in the right or left lower extremity. ACT 112: Negative or not required by law. Electronically signed by: Andres Pappas M.D. 01/14/2025 9:07 AM Chest X-Ray 01/15/25 15:26 Technique: PA and lateral views of the chest were obtained Comparison is made to the prior examination dated 04/16/2017 Findings: There are no confluent pulmonary infiltrates. The heart size is within normal limits. No pleural effusion or pneumothorax is seen. There is no definite pulmonary nodule. No fracture is noted. No foreign body is seen Impression: No active disease Electronically signed by Scott Kirby 01-15-2025 5:16 PM Diagnostic Findings Comprehensive Metabolic Panel 01/16/25 Range/Units 05:36 Sodium 137 (136-145) mmol/L Potassium 3.3 L (3.5-5.1) mmol/L Chloride 98 (98-107) mmol/L Carbon Dioxide 26 (21-32) mmol/L BUN 39 H (6-23) mg/dl Creatinine 1.18 (0.6-1.2) mg/dl Glucose 137 H (70-99(Fasting)) mg/dl Calcium 9.9 (8.6-10.3) mg/dl Intake and Output 01/15/25 01/16/25 01/16/25 22:59 06:59 14:59 Intake Total 265.1 / 1074.267 313.767 / 1074.267 122.467 / 122.467 Output Total 300 / 1101 801 / 1101 400 / 400 Balance -34.9 / -26.733 -487.233 / -26.733 -277.533 / -277.533 Intake: IV 265.1 / 494.267 213.767 / 494.267 122.467 / 122.467 Heparin 86898 Unit/500 ml D5w 265.1 / 494.267 213.767 / 494.267 122.467 / 122.467 25,000 units In 500 ml @ 1,100 UNITS/HR 22 mls/hr IV .[id number] [facility] Rx#:[id number] Oral 100 / 580 Output: Urine 300 / 1100 800 / 1100 400 / 400 # Bowel Movements Other: Weight 83.1 kg Weight Measurement Method Standing Scale Medications Administered Home Medications Medication Instructions Recorded Confirmed Last Taken acetaminophen 500 mg tablet 1,000 mg PO Q6H PRN Pain 07/13/19 01/14/25 1 Day Ago (Tylenol Extra Strength) ~01/13/25 1000 loratadine 10 mg tablet 10 mg PO DAILY PRN Allergy Symptoms 07/13/19 01/14/25 1 Day Ago ~01/13/25 10 multivitamin 1 tab PO DAILY 07/13/19 01/14/25 2 Days Ago ~01/12/25 albuterol sulfate 90 mcg/actuation 90 mcg inhalation 1XD 01/14/25 01/14/25 1 Day Ago aerosol inhaler ~01/13/25 90 losartan 50 mg tablet 50 mg PO 1XD 01/14/25 01/14/25 1 Day Ago ~01/13/25 0.2 nystatin 100,000 unit/mL oral 100,000 unit PO 1XD 01/14/25 01/14/25 1 Day Ago suspension ~01/13/25 prednisone 10 mg tablet 10 mg PO DAILY 01/14/25 01/14/25 Unknown tramadol 50 mg tablet 50 mg PO 1XD 01/14/25 01/14/25 1 Day Ago ~01/13/25 50 triamterene 37.5 37.5 tab PO 1XD 01/14/25 01/14/25 1 Day Ago mg-hydrochlorothiazide 25 mg tablet ~01/13/25 Active Medications Generic Name Dose Route Start Last Admin Trade Name Freq PRN Reason Stop Dose Admin Aspirin 81 mg 01/15/25 12:30 01/16/25 09:11 Aspirin 81 Mg Chew PO 02/14/25 12:29 81 mg DAILY GLENNA Administration Atorvastatin Calcium 40 mg 01/15/25 09:00 01/16/25 09:11 Atorvastatin 40 Mg Tab PO 02/14/25 08:59 40 mg QAM GLENNA Administration Carvedilol 3.125 mg 01/15/25 09:15 01/16/25 09:10 Carvedilol 3.125 Mg Tab PO 02/14/25 09:14 3.125 mg BIDM GLENNA Administration Doxycycline Monohydrate 100 mg 01/15/25 09:15 01/16/25 10:36 Doxycycline Susp 25 Mg/5 Ml 60ml PO 01/20/25 09:14 100 mg BID GLENNA Administration Empagliflozin 10 mg 01/15/25 09:00 01/16/25 09:11 Empagliflozin 10 Mg Tab PO 02/14/25 08:59 10 mg DAILY GLENNA Administration Guaifenesin 200 mg 01/14/25 07:30 01/16/25 09:11 Guaifenesin Sugar Free 200 Mg/10 Ml Udc PO 02/13/25 07:29 200 mg BID GLENNA Administration Insulin Aspart 0 units 01/14/25 09:26 01/16/25 09:22 Insulin Aspart Per Unit Charge SC 02/13/25 09:25 5 units ACHS GLENNA Administration Insulin Glargine 5 units 01/14/25 09:26 01/16/25 09:23 Lantus Per Unit Charge SQ 02/13/25 09:25 5 units DAILY GLENNA Administration Ipratropium Brent 0.5 mg 01/14/25 07:00 01/16/25 07:40 Ipratropium Brent Neb Soln 0.02% 0.5mg/2.5ml Vial INH 02/13/25 06:59 0.5 mg QIDR GLENNA Administration Levalbuterol HCl 1.25 mg 01/14/25 07:00 01/16/25 07:40 Levalbuterol 1.25 Mg/3 Ml Neb NEB 02/13/25 06:59 1.25 mg QIDR GLENNA Administration Losartan Potassium 25 mg 01/16/25 09:00 01/16/25 09:11 Losartan Potassium 25 Mg Tab PO 02/15/25 08:59 25 mg DAILY GLENNA Administration Miscellaneous 1 each 01/15/25 08:59 01/16/25 09:10 Remove Nicoderm Patch N/A 02/14/25 08:58 1 each DAILY@0859 GLENNA Administration Multivitamins 1 tab 01/14/25 09:00 01/16/25 09:12 Multivitamin Tab PO 02/13/25 08:59 1 tab DAILY GLENNA Administration Nicotine 1 patch 01/14/25 10:15 01/16/25 09:12 Nicotine 14 Mg/24 Hr Patch TD 02/13/25 10:14 1 patch QAM GLENNA Administration Potassium Chloride 40 meq 01/16/25 07:40 01/16/25 09:10 Potassium Chloride 20 Meq/15 Ml Udc PO 02/15/25 07:39 40 meq TID GLENNA Administration Prednisone 10 mg 01/14/25 09:00 01/16/25 09:12 Prednisone 10 Mg Tablet PO 02/13/25 08:59 10 mg DAILY GLENNA Administration Spironolactone 12.5 mg 01/15/25 09:00 01/16/25 09:12 Spironolactone 12.5 Mg Tab PO 02/14/25 08:59 12.5 mg DAILY GLENNA Administration PG Care Time/CCT Total # of Minutes Spent Total Time Spent with Patient: Total time spent is greater than 50% in coordination of care (as documented) at patient's floor/unit and/or counseling patient: Coding Level of Care Code 84634 SUB INP/OBS CARE 3/50MIN Diagnoses Non-STEMI (non-ST elevated myocardial infarction) I21.4 Diabetes mellitus type 2 with complications E11.8 Acute bronchitis J20.9 Rheumatoid arthritis M06.9 Acute heart failure with mildly reduced ejection fraction (HFmrEF, 41-49%) I50.21 Reactive airway disease J45.909 Febrile illness, acute R50.9 Pulmonary hypertension I27.20 HTN (hypertension) I10
--- NOTE | 2025-01-16 13:57 | Hospitalist Progress Note ---
Date of Service January 16, 2025 Assessment & Plan (1) Non-STEMI (non-ST elevated myocardial infarction): (2) Acute heart failure with mildly reduced ejection fraction (HFmrEF, 41-49%): (3) Acute passive congestion of liver: (4) Acute bronchitis: (5) Reactive airway disease: (6) Diabetes mellitus type 2 with complications: (7) Rheumatoid arthritis: Plan Patient 54-year-old female with evidence of non-ST OR and acute heart failure with decreased ejection fraction. Patient has responded diuretics. Continue goal-directed medical therapy for congestive heart failure and non- STEMI Continue potassium supplementation Patient has significant difficulty swallowing pills, use suspension/elixirs when available. Using Coreg since it is a smaller pill than the Toprol XL Discontinue IV heparin, Communication out to cardiology, best plan of treatment may be to treat her me dically and have her follow-up with cardiology outpatient to determine if she can lie flat for cardiac catheterization in the outpatient setting once she is more significantly improved from her acute bronchitis Increase scheduled guaifenesin, Hycodan as needed for severe cough. Continue course of doxycycline Admission and Anticipated Discharge Date Admission Date: January 14, 2025 Subjective Patient denies any chest pain. She did state that she had a lot of coughing spasms through the night. Cardiology did speak with her about cardiac cath and the fact that she needs to lay flat. She reports to me that even when she is in the best of health due to her severe rheumatoid arthritis she can only lay flat on her back maybe at most 20 to 25 minutes. Physical Exam Physical Exam: Constitutional: Alert, nontoxic HEENT: Mucous membranes moist. Lungs: Decreased breath sounds, no rales, no wheezes CV: S1-S2, regular Abdomen: Soft, nontender, nondistended Extremities: Lower extremity edema improving Neuro: No focal deficits Psych: Cooperative, normal mood Results & Data Results & Data Vital Signs (Past 12 Hours) Vital Signs Temp Pulse Pulse Resp BP BP Pulse Ox 01/16/25 12:10 81 16 98 01/16/25 12:06 36.4 C L 75 18 120/74 97 01/16/25 09:00 01/16/25 07:41 72 16 98 01/16/25 07:21 36.4 C L 75 20 117/80 97 01/16/25 07:00 64 11/18/25 02:43 36.5 C 73 18 114/78 98 O2 Del Method 01/16/25 12:10 Room Air 01/16/25 12:06 Room Air 01/16/25 09:00 Room Air 01/16/25 07:41 Room Air 01/16/25 07:21 Room Air 01/16/25 07:00 01/16/25 02:43 Room Air Diagnostic Findings Reviewed imaging, laboratory and diagnostic studies. Pertinent findings as below. Potassium 3.3 Creatinine 1.8 Personally reviewed chest x-ray from 01/15/2025, no infiltrate or edema noted
[2025-01-16] MEDS: METOPROLOL TARTRATE 25 MG TAB PO SCH (20:13)
[2025-01-17 06:14] LABS: Hematocrit (blood only) 38.0 % (37.0-47.0); Hemoglobin 12.8 g/dL (12.0-16.0); Mean Corpuscular Hemoglobin 29.4 pg (25.0-34.0); Mean Corpuscular Volume 87.4 fL (80.0-100.0); Platelet Count 400 K/uL (130-400); RDW Standard Deviation 47.7 fL (36.4-46.3); Red Blood Count 4.35 M/uL (4.20-5.40); White Blood Count 15.30 K/ul (4.8-10.8)
[2025-01-17 06:37] LABS: Anion Gap 11.0 (3-11); Blood Urea Nitrogen 39.0 mg/dl (6-23); Calcium 9.9 mg/dl (8.6-10.3); Carbon Dioxide 22.0 mmol/L (21-32); Chloride 102.0 mmol/L (98-107); Creatinine Clr Calc Pharmacy 48.9 ml/min; Glucose 136.0 mg/dl (70-99(Fasting)); Magnesium 2.1 mg/dl (1.7-2.4); Potassium 4.5 mmol/L (3.5-5.1); Sodium 135.0 mmol/L (136-145)
[2025-01-17] MEDS: ACETAMINOPHEN 325 MG TAB PO PRN (07:54)
--- NOTE | 2025-01-17 11:36 | Cardiology Progress Note ---
Date of Service January 17, 2025 Assessment & Plan (1) Non-STEMI (non-ST elevated myocardial infarction): Plan: (2) Diabetes mellitus type 2 with complications: (3) Acute bronchitis: (4) Rheumatoid arthritis: (5) Acute heart failure with mildly reduced ejection fraction (HFmrEF, 41-49%): (6) Reactive airway disease: (7) Febrile illness, acute: (8) Pulmonary hypertension: (9) HTN (hypertension): Plan NSTEMI - asymptomatic Acute bronchitis - improved, persistent - defer to hospitalsist Viral syndrome - improved, persistent - defer to hospitalist Rheumatoid arthritis DM Acute HFrEF - resolved HTN - stable Azotemia off IV heparin DVT proph - defer to hospitalist L & R card cath DW patient - she agrees start IVF will schedule for 01/18/25 NPO post MN cont bronchodilators round the clock abx as per hospitalist steroids - ?increase - defer to hospitalist changed Coreg to metoprolol as wheezing persists repeat LFTs - defer to hospitalist statin as tolerated correct and f/u electrolytes f/u renal function ASA adjust anti-HTN meds keeping systolic BP between 100-140 mmHg avoid hypovolemia keep patient euvolemic keep LE elevated when sitting Admission and Anticipated Discharge Date Admission Date: January 14, 2025 Subjective Patient on exam is sitting in chair in NAD; no c/o cp, sob, palpitations, dizziness, LOC; still with c/o cough with thick green/brown phlegm; states that she was able to lay in bed for about 1 1/2 hrs before she started coughing whcih made her get up. Review of Systems Review of Systems: as per HPI Physical Exam Physical Exam: Constitutional: sitting in chair in NAD Eyes: anicteric sclerae, pink conjunctive Neck: supple, NT, no jvd Respiratory: distant BS, no rales, no wheezing Cardiovascular: S1 S2, soft systolic murmur Gastrointestinal (Abdomen): soft, NT, bs+ Neurologic: a, o x 3 Results & Data Vital Signs (Past 12 Hours) Vital Signs Temp 36.4 C L 01/17/25 10:42 Pulse 68 01/17/25 10:42 Resp 17 01/17/25 10:42 BP 93/59 L 01/17/25 10:42 Pulse Ox 97 01/17/25 10:42 O2 Del Method Room Air 01/17/25 10:42 FiO2 21 01/15/25 15:37 Intake & Output 01/16/25 01/17/25 01/17/25 18:59 06:59 18:59 Intake Total 802.467 / 2072.467 1270 / 2072.467 Output Total 700 / 1690 990 / 1690 Balance 102.467 / 382.467 280 / 382.467 Weight 84.6 kg Intake: IV 122.467 / 122.467 Heparin 78345 Unit/500 ml D5w 122.467 / 122.467 25,000 units In 500 ml @ 1,100 UNITS/HR 22 mls/hr IV .[id number] [facility] Rx#:[id number] Oral 680 / 1950 1270 / 1950 Output: Urine 700 / 1690 990 / 1690 Other: Weight Measurement Method Standing Scale Vital Signs Temp Pulse Pulse Resp BP Pulse Ox Pulse Ox 01/17/25 10:42 36.4 C L 68 17 93/59 L 97 01/17/25 10:24 77 18 98 01/17/25 09:00 98 01/17/25 08:00 84 01/17/25 07:17 36.5 C 79 20 122/78 98 01/17/25 06:52 71 18 98 01/17/25 03:00 37.2 C 73 18 112/69 99 O2 Del Method O2 Del Method 01/17/25 10:42 Room Air 01/17/25 10:24 Room Air 01/17/25 09:00 Room Air 01/17/25 08:00 01/17/25 07:17 Room Air 01/17/25 06:52 Room Air 01/17/25 03:00 Room Air Laboratory Results Laboratory Results WBC 15.30 K/ul (4.8-10.8) H 01/17/25 05:31 RBC 4.35 M/uL (4.20-5.40) 01/17/25 05:31 Hgb 12.8 g/dL (12.0-16.0) 01/17/25 05:31 POC Hgb 14.3 g/dl (12.0-16.0) 01/14/25 03:28 Hct 38.0 % (37.0-47.0) 01/17/25 05:31 POC Hct 42 % (37-47) 01/14/25 03:28 MCV 87.4 fL (80.0-100.0) 01/17/25 05:31 MCH 29.4 pg (25.0-34.0) 01/17/25 05:31 MCHC 33.7 g/dL (32.0-36.0) 01/17/25 05:31 RDW Std Deviation 47.7 fL (36.4-46.3) H 01/17/25 05:31 RDW Coeff of Timothy 14.8 % (11.5-14.5) H 01/17/25 05:31 Plt Count 400 K/uL (130-400) 01/17/25 05:31 MPV 9.9 fL (9.4-12.4) 01/17/25 05:31 Immature Gran % (Auto) 0.6 % 01/15/25 05:28 Neut % (Auto) 50.5 % 01/15/25 05:28 Lymph % (Auto) 42.0 % 01/15/25 05:28 [place] % (Auto) 5.0 % 01/15/25 05:28 Eos % (Auto) 1.5 % 01/15/25 05:28 Baso % (Auto) 0.4 % 01/15/25 05:28 Neut # (Auto) 8.61 K/uL (1.40-6.50) H 01/15/25 05:28 Lymph # (Auto) 7.16 K/uL (1.20-3.40) H 01/15/25 05:28 [place] # (Auto) 0.86 K/uL (0.11-0.59) H 01/15/25 05:28 Eos # (Auto) 0.26 K/uL (0.00-0.50) 01/15/25 05:28 Baso # (Auto) 0.07 K/uL (0.00-0.20) 01/15/25 05:28 Immature Gran # (Auto) 0.10 K/uL (0.01-0.20) 01/15/25 05:28 PT 10.7 Seconds (9.0-12.0) 01/14/25 06:12 INR 1.0 (0.9-1.1) 01/14/25 06:12 APTT 22 Seconds (21-31) 01/14/25 06:12 PTT Ratio 0.8 01/14/25 06:12 Heparin Anti-Xa, Unfract 0.40 IU/ml (0.3-0.7) 01/16/25 05:36 POC Sodium 137 mmol/L (135-144) 01/14/25 03:28 Sodium 135 mmol/L (136-145) L 01/17/25 05:31 POC Potassium 4.3 mmol/L (3.3-5.0) 01/14/25 03:28 Potassium 4.5 mmol/L (3.5-5.1) D 01/17/25 05:31 POC Chloride 101 mmol/L (101-112) 01/14/25 03:28 Chloride 102 mmol/L (98-107) 01/17/25 05:31 Carbon Dioxide 22 mmol/L (21-32) 01/17/25 05:31 POC Total CO2 25 mmol/L (24-31) 01/14/25 03:28 Anion Gap 11 (3-11) 01/17/25 05:31 POC Anion Gap 16.0 mmol/L (16-25) 01/14/25 03:28 POC BUN 33 mg/dl (7-18) H 01/14/25 03:28 BUN 39 mg/dl (6-23) H 01/17/25 05:31 Creatinine 1.34 mg/dl (0.6-1.2) H 01/17/25 05:31 POC Creatinine 1.1 mg/dl (0.6-1.3) 01/14/25 03:28 Est Cr Clr Drug Dosing 48.9 ml/min 01/17/25 05:31 eGFR 46.83 01/17/25 05:31 BUN/Creatinine Ratio 29.1 (10-20) H 01/17/25 05:31 Glucose 136 mg/dl (70-99(Fasting)) H 01/17/25 05:31 POC Glucose 151 mg/dl (70-99) H 01/17/25 07:56 POC Glucose (other) 273 mg/dl (70-99) H 01/14/25 03:28 Estimat Average Glucose 157 mg/dl 01/14/25 06:20 Hemoglobin A1c 7.1 % (4.5-5.6) H 01/14/25 06:20 Lactate 1.9 mmol/L (0.4-2.0) 01/14/25 06:12 Calcium 9.9 mg/dl (8.6-10.3) 01/17/25 05:31 POC Ioniz Calcium [place] 1.32 mmol/l (1.12-1.32) 01/14/25 03:28 Phosphorus 3.1 mg/dl (2.5-4.9) 01/17/25 05:31 Magnesium 2.1 mg/dl (1.7-2.4) 01/17/25 05:31 Total Bilirubin 1.1 mg/dl (0.2-1.0) H 01/15/25 05:28 Direct Bilirubin 0.2 mg/dl (0-0.2) 01/14/25 07:20 AST 31 U/L (13-39) 01/15/25 05:28 ALT 83 U/L (7-52) H 01/15/25 05:28 Alkaline Phosphatase 94 U/L (34-104) 01/15/25 05:28 Troponin I High Sens 489.1 pg/ml (0-14) H* D 01/14/25 15:47 B-Natriuretic Peptide 87 pg/ml (0-100) 01/14/25 07:25 Total Protein 7.2 gm/dl (6.0-8.3) 01/15/25 05:28 Albumin 3.8 gm/dl (3.4-5.0) 01/15/25 05:28 Globulin 3.4 gm/dl (2.5-4.0) 01/15/25 05:28 Albumin/Globulin Ratio 1.1 (0.9-2) 01/15/25 05:28 Triglycerides 162 mg/dl (0-150) H 01/15/25 05:28 Cholesterol 183 mg/dl (0-200) 01/15/25 05:28 LDL Cholesterol, Calc 77 mg/dl 01/15/25 05:28 VLDL Cholesterol, Calc 32 mg/dl (0-30) H 01/15/25 05:28 HDL Cholesterol 74 mg/dl 01/15/25 05:28 Cholesterol/HDL Ratio 2.5 (0-5) 01/15/25 05:28 Procalcitonin 0.15 ng/ml (0-0.5) 01/14/25 06:12 TSH 1.248 uIu/ml (0.300-4.500) 01/14/25 06:12 HCG, Qual Negative (Negative) 01/14/25 03:15 PTH Intact 20.3 pg/ml (12.0-88.0) 01/14/25 07:25 Adenovirus (PCR) Not Detected (NotDetected) 01/14/25 00:17 B. pertussis DNA (PCR) Not Detected (NotDetected) 01/14/25 00:17 B.parapertussis DNA PCR Not Detected (NotDetected) 01/14/25 00:17 C. pneumoniae DNA (PCR) Not Detected (NotDetected) 01/14/25 00:17 Coronavirus OC43 (PCR) Not Detected (NotDetected) 01/14/25 00:17 Coronavirus HKU1 (PCR) Not Detected (NotDetected) 01/14/25 00:17 Coronavirus 229E (PCR) Not Detected (NotDetected) 01/14/25 00:17 SARS-CoV-2 (PCR) Not Detected (NotDetected) 01/14/25 00:17 Coronavirus NL63 (PCR) Not Detected (NotDetected) 01/14/25 00:17 Human Metapneumovir PCR Not Detected (NotDetected) 01/14/25 00:17 Influenza Type A (PCR) Not Detected (NotDetected) 01/14/25 00:17 Influenza Type B (PCR) Not Detected (NotDetected) 01/14/25 00:17 M. pneumoniae (PCR) Not Detected (NotDetected) 01/14/25 00:17 Parainfluenza 1 (PCR) Not Detected (NotDetected) 01/14/25 00:17 Parainfluenza 2 (PCR) Not Detected (NotDetected) 01/14/25 00:17 Parainfluenza 3 (PCR) Not Detected (NotDetected) 01/14/25 00:17 Parainfluenza 4 (PCR) Not Detected (NotDetected) 01/14/25 00:17 RSV (PCR) Not Detected (NotDetected) 01/14/25 00:17 Entero/Rhino (PCR) Not Detected (NotDetected) 01/14/25 00:17 Impressions Chest CTA 01/14/25 03:17 EXAM: CT angio chest PE protocol CLINICAL HISTORY: Dyspnea TECHNIQUE: Contiguous axial images were obtained from the neck base through the upper abdomen following intravenous administration of iodinated contrast material. Angiographic images were processed, 3D MIP images were acquired for interpretation. If IV contrast material had not been administered, the likelihood of detecting abnormalities relevant to the patient's condition would have been substantially decreased. Coronal and sagittal 3-D MIPs were likewise performed and indicated to increase the sensitivity of detecting diffuse clinically relevant pathology. CT scan was performed according to ALARA (as low as reasonable achievable). COMPARISON: None. FINDINGS: Adequate contrast bolus without evidence of pulmonary embolism. Mild smooth interlobular septal thickening is seen in the lungs, especially in the lower lobes. Few confluent areas of ground glass attenuation are seen in the central peribronchovascular location. The central airways are patent. No pleural effusion. The heart, aorta, and pulmonary arteries are of normal size and configuration. No pericardial effusion is identified. There are no appreciable coronary artery and aortic atherosclerotic calcifications. The thyroid is unremarkable. No mediastinal, hilar, or axillary lymphadenopathy is noted. No suspicious lytic or sclerotic osseous lesions are identified. IMPRESSION: 1. No evidence of pulmonary embolism. 2. Mild smooth interlobular septal thickening in lungs with confluent areas of ground glass attenuation in central peribronchovascular location - suggestive of mild pulmonary edema. Electronically signed by Jovani Dwyer 01-14-2025 05:34 AM Venous Doppler Study 01/14/25 06:48 ULTRASOUND BILATERAL LOWER EXTREMITY VENOUS CLINICAL HISTORY: Lower extremity edema. COMPARISON STUDY: No priors TECHNIQUE: Real-time, grayscale, and color Doppler sonography of the deep veins of the right and left lower extremity was performed from the inguinal crease to the calf. Compression and augmentation were utilized. FINDINGS: There is no sonographic evidence of deep venous thrombosis identified in the right or left lower extremity. The common femoral, superficial femoral, and popliteal veins are patent and normally compressible bilaterally. The greater saphenous vein and the profunda femoris vein at the junction with the common femoral vein are clear in both legs. The visualized calf veins are patent bilaterally. IMPRESSION: There is no sonographic evidence of deep venous thrombosis identified in the right or left lower extremity. ACT 112: Negative or not required by law. Electronically signed by: Andres Pappas M.D. 01/14/2025 9:07 AM Chest X-Ray 01/15/25 15:26 Technique: PA and lateral views of the chest were obtained Comparison is made to the prior examination dated 04/16/2017 Findings: There are no confluent pulmonary infiltrates. The heart size is within normal limits. No pleural effusion or pneumothorax is seen. There is no definite pulmonary nodule. No fracture is noted. No foreign body is seen Impression: No active disease Electronically signed by Scott Kirby 01-15-2025 5:16 PM Diagnostic Findings CBC 01/17/25 Range/Units 05:31 WBC 15.30 H (4.8-10.8) K/ul RBC 4.35 (4.20-5.40) M/uL Hgb 12.8 (12.0-16.0) g/dL Hct 38.0 (37.0-47.0) % Plt Count 400 (130-400) K/uL Comprehensive Metabolic Panel 01/17/25 Range/Units 05:31 Sodium 135 L (136-145) mmol/L Potassium 4.5 D (3.5-5.1) mmol/L Chloride 102 (98-107) mmol/L Carbon Dioxide 22 (21-32) mmol/L BUN 39 H (6-23) mg/dl Creatinine 1.34 H (0.6-1.2) mg/dl Glucose 136 H (70-99(Fasting)) mg/dl Calcium 9.9 (8.6-10.3) mg/dl Intake and Output 01/16/25 01/17/25 01/17/25 22:59 06:59 14:59 Intake Total 1120 / 2.467 150 / 2072.467 Output Total 700 / 1690 290 / 1690 Balance 420 / 382.467 -140 / 382.467 Intake: Oral 1120 / 1950 150 / 1950 Output: Urine 700 / 1690 290 / 1690 Other: Weight 84.6 kg Weight Measurement Method Standing Scale Medications Administered Home Medications Medication Instructions Recorded Confirmed Last Taken acetaminophen 500 mg tablet 1,000 mg PO Q6H PRN Pain 07/13/19 01/14/25 1 Day Ago (Tylenol Extra Strength) ~01/13/25 1000 loratadine 10 mg tablet 10 mg PO DAILY PRN Allergy Symptoms 07/13/19 01/14/25 1 Day Ago ~01/13/25 10 multivitamin 1 tab PO DAILY 07/13/19 01/14/25 2 Days Ago ~01/12/25 albuterol sulfate 90 mcg/actuation 90 mcg inhalation 1XD 01/14/25 01/14/25 1 Day Ago aerosol inhaler ~01/13/25 90 losartan 50 mg tablet 50 mg PO 1XD 01/14/25 01/14/25 1 Day Ago ~01/13/25 0.2 nystatin 100,000 unit/mL oral 100,000 unit PO 1XD 01/14/25 01/14/25 1 Day Ago suspension ~01/13/25 prednisone 10 mg tablet 10 mg PO DAILY 01/14/25 01/14/25 Unknown tramadol 50 mg tablet 50 mg PO 1XD 01/14/25 01/14/25 1 Day Ago ~01/13/25 50 triamterene 37.5 37.5 tab PO 1XD 01/14/25 01/14/25 1 Day Ago mg-hydrochlorothiazide 25 mg tablet ~01/13/25 Active Medications Generic Name Dose Route Start Last Admin Trade Name Freq PRN Reason Stop Dose Admin Acetaminophen 650 mg 01/14/25 12:57 01/17/25 07:54 Acetaminophen 325 Mg Tab PO 02/13/25 06:45 650 mg Q4H PRN Administration fever/pain Aspirin 81 mg 01/15/25 12:30 01/17/25 07:57 Aspirin 81 Mg Chew PO 02/14/25 12:29 81 mg DAILY GLENNA Administration Atorvastatin Calcium 40 mg 01/15/25 09:00 01/17/25 07:55 Atorvastatin 40 Mg Tab PO 02/14/25 08:59 40 mg QAM GLENNA Administration Doxycycline Monohydrate 100 mg 01/15/25 09:15 01/17/25 07:58 Doxycycline Susp 25 Mg/5 Ml 60ml PO 01/20/25 09:14 100 mg BID GLENNA Administration Empagliflozin 10 mg 01/15/25 09:00 01/17/25 07:58 Empagliflozin 10 Mg Tab PO 02/14/25 08:59 10 mg DAILY GLENNA Administration Guaifenesin 200 mg 01/16/25 13:00 01/17/25 07:54 Guaifenesin Sugar Free 200 Mg/10 Ml Udc PO 02/15/25 12:59 200 mg QID GLENNA Administration Hydrocodone Bit/Homatropine Methylb 5 ml 01/16/25 11:40 01/16/25 20:18 Hydrocodone/Homatropine Syrup 5mg/1.5mg 5ml Udp PO 01/30/25 11:39 5 ml Q6H PRN Administration Cough Insulin Aspart 0 units 01/14/25 09:26 01/17/25 08:30 Insulin Aspart Per Unit Charge SC 02/13/25 09:25 3 units ACHS GLENNA Administration Insulin Glargine 5 units 01/14/25 09:26 01/17/25 08:31 Lantus Per Unit Charge SQ 02/13/25 09:25 5 units DAILY GLENNA Administration Ipratropium Coker 0.5 mg 01/14/25 07:00 01/17/25 10:24 Ipratropium Coker Neb Soln 0.02% 0.5mg/2.5ml Vial INH 02/13/25 06:59 0.5 mg QIDR GLENNA Administration Levalbuterol HCl 1.25 mg 01/14/25 07:00 01/17/25 10:24 Levalbuterol 1.25 Mg/3 Ml Neb NEB 02/13/25 06:59 1.25 mg QIDR GLENNA Administration Losartan Potassium 25 mg 01/16/25 09:00 01/17/25 07:55 Losartan Potassium 25 Mg Tab PO 02/15/25 08:59 25 mg DAILY GLENNA Administration Metoprolol Tartrate 25 mg 01/16/25 21:00 01/17/25 07:54 Metoprolol Tartrate 25 Mg Tab PO 02/15/25 20:59 25 mg BID GLENNA Administration Miscellaneous 1 each 01/15/25 08:59 01/17/25 07:55 Remove Nicoderm Patch N/A 02/14/25 08:58 1 each DAILY@0859 GLENNA Administration Multivitamins 1 tab 01/14/25 09:00 01/17/25 07:55 Multivitamin Tab PO 02/13/25 08:59 1 tab DAILY GLENNA Administration Nicotine 1 patch 01/14/25 10:15 01/17/25 07:55 Nicotine 14 Mg/24 Hr Patch TD 02/13/25 10:14 1 patch QAM GLENNA Administration Potassium Chloride 40 meq 01/16/25 07:40 01/17/25 07:56 Potassium Chloride 20 Meq/15 Ml Udc PO 02/15/25 07:39 40 meq TID GLENNA Administration Prednisone 10 mg 01/14/25 09:00 01/17/25 07:55 Prednisone 10 Mg Tablet PO 02/13/25 08:59 10 mg DAILY GLENNA Administration Spironolactone 12.5 mg 01/15/25 09:00 01/17/25 07:56 Spironolactone 12.5 Mg Tab PO 02/14/25 08:59 12.5 mg DAILY GLENNA Administration PG Care Time/CCT Total # of Minutes Spent Total Time Spent with Patient: Total time spent is greater than 50% in coordination of care (as documented) at patient's floor/unit and/or counseling patient: Coding Level of Care Code 28095 SUB INP/OBS CARE 3/50MIN Diagnoses Non-STEMI (non-ST elevated myocardial infarction) I21.4 Diabetes mellitus type 2 with complications E11.8 Acute bronchitis J20.9 Rheumatoid arthritis M06.9 Acute heart failure with mildly reduced ejection fraction (HFmrEF, 41-49%) I50.21 Reactive airway disease J45.909 Febrile illness, acute R50.9 Pulmonary hypertension I27.20 HTN (hypertension) I10
--- NOTE | 2025-01-17 12:11 | Hospitalist Progress Note ---
Date of Service January 17, 2025 Assessment & Plan (1) Non-STEMI (non-ST elevated myocardial infarction): (2) Acute heart failure with mildly reduced ejection fraction (HFmrEF, 41-49%): (3) Acute passive congestion of liver: (4) Acute bronchitis: (5) Reactive airway disease: (6) Diabetes mellitus type 2 with complications: (7) Rheumatoid arthritis: Plan Per previous provider w/ addendum: Pt is a 54 yo F with evidence of non-ST MT and acute heart failure with decreased ejection fraction. Patient has responded diuretics. Continue goal-directed medical therapy for congestive heart failure and non- STEMI Continue potassium supplementation Patient has significant difficulty swallowing pills, use suspension/elixirs when available. Using Coreg since it is a smaller pill than the Toprol XL IV heparin was already stopped Cardiology consulted and following closely, plan for cardiac cath tmrw as she seems she can lie flat for cardiac catheterization, pt feels improved from her acute bronchitis Cont. guaifenesin, Hycodan as needed for severe cough. Continue course of doxycycline Admission and Anticipated Discharge Date Admission Date: January 14, 2025 Subjective Pt seen in follow up of NSTEMI, bronchitis Currently sitting up in chair in NAD, overall feels improved but still w/ cough Denies any chest pain or shortness of breath Pt seen by cardiology - likely plan for cardiac cath tmrw, as pt was able to lay flat for longer time overnight. Review of Systems Review of Systems: All systems reviewed & are unremarkable except as noted in Subjective Physical Exam Physical Exam: Constitutional: obese F in NAD HEENT: Mucous membranes moist. Lungs: CTAB, no wheezes noted CV: S1-S2, regular Abdomen: Soft, nontender, nondistended Extremities: Lower extremity edema improving Neuro: awake, alert, answers appropriately, speech fluent, moves extremities Psych: Cooperative, normal mood Results & Data Results & Data Vital Signs (Past 12 Hours) Vital Signs Temp Pulse Pulse Resp BP Pulse Ox Pulse Ox 01/17/25 10:42 36.4 C L 68 17 93/59 L 97 01/17/25 10:24 77 18 98 01/17/25 09:00 98 01/17/25 08:00 84 01/17/25 07:17 36.5 C 79 20 122/78 98 01/17/25 06:52 71 18 98 01/17/25 03:00 37.2 C 73 18 112/69 99 O2 Del Method O2 Del Method 01/17/25 10:42 Room Air 01/17/25 10:24 Room Air 01/17/25 09:00 Room Air 01/17/25 08:00 01/17/25 07:17 Room Air 01/17/25 06:52 Room Air 01/17/25 03:00 Room Air Laboratory Results 01/17/25 01/17/25 01/17/25 Range/Units 11:23 07:56 05:31 WBC 15.30 H (4.8-10.8) K/ul RBC 4.35 (4.20-5.40) M/uL Hgb 12.8 (12.0-16.0) g/dL Hct 38.0 (37.0-47.0) % MCV 87.4 (80.0-100.0) fL MCH 29.4 (25.0-34.0) pg MCHC 33.7 (32.0-36.0) g/dL RDW Std Deviation 47.7 H (36.4-46.3) fL RDW Coeff of Timothy 14.8 H (11.5-14.5) % Plt Count 400 (130-400) K/uL MPV 9.9 (9.4-12.4) fL Sodium 135 L (136-145) mmol/L Potassium 4.5 D (3.5-5.1) mmol/L Chloride 102 (98-107) mmol/L Carbon Dioxide 22 (21-32) mmol/L Anion Gap 11 (3-11) BUN 39 H (6-23) mg/dl Creatinine 1.34 H (0.6-1.2) mg/dl Est Cr Clr Drug Dosing 48.9 ml/min eGFR 46.83 BUN/Creatinine Ratio 29.1 H (10-20) Glucose 136 H (70-99(Fasting)) mg/dl POC Glucose 152 H 151 H (70-99) mg/dl Calcium 9.9 (8.6-10.3) mg/dl Phosphorus 3.1 (2.5-4.9) mg/dl Magnesium 2.1 (1.7-2.4) mg/dl 01/16/25 01/16/25 01/16/25 Range/Units 20:10 15:56 11:57 WBC (4.8-10.8) K/ul RBC (4.20-5.40) M/uL Hgb (12.0-16.0) g/dL Hct (37.0-47.0) % MCV (80.0-100.0) fL MCH (25.0-34.0) pg MCHC (32.0-36.0) g/dL RDW Std Deviation (36.4-46.3) fL RDW Coeff of Timothy (11.5-14.5) % Plt Count (130-400) K/uL MPV (9.4-12.4) fL Sodium (136-145) mmol/L Potassium (3.5-5.1) mmol/L Chloride (98-107) mmol/L Carbon Dioxide (21-32) mmol/L Anion Gap (3-11) BUN (6-23) mg/dl Creatinine (0.6-1.2) mg/dl Est Cr Clr Drug Dosing ml/min eGFR BUN/Creatinine Ratio (10-20) Glucose (70-99(Fasting)) mg/dl POC Glucose 127 H 211 H 117 H (70-99) mg/dl Calcium (8.6-10.3) mg/dl Phosphorus (2.5-4.9) mg/dl Magnesium (1.7-2.4) mg/dl Medications Administered Current Inpatient Medications Acetaminophen (Acetaminophen 325 Mg Tab) 650 mg PO Q4H PRN PRN Reason: fever/pain Stop: 02/13/25 06:45 Last Admin: 01/17/25 07:54 Dose: 650 mg Albuterol (Albut/Ipratrop 3mg/0.5mg Neb 3 Ml Vial) 3 ml NEB Q4H PRN; Protocol PRN Reason: wheeze/sob Stop: 02/13/25 10:10 Aspirin (Aspirin 81 Mg Chew) 81 mg PO DAILY [facility] Stop: 02/14/25 12:29 Last Admin: 01/17/25 07:57 Dose: 81 mg Atorvastatin Calcium (Atorvastatin 40 Mg Tab) 40 mg PO QAM [facility] Stop: 02/14/25 08:59 Last Admin: 01/17/25 07:55 Dose: 40 mg Dextrose (Dextrose 50% 50 Ml Syringe) 25 - 50 ml IV UD PRN; Protocol PRN Reason: Hypoglycemia Protocol Stop: 02/13/25 09:25 Doxycycline Monohydrate (Doxycycline Susp 25 Mg/5 Ml 60ml) 100 mg PO BID [facility] Stop: 01/20/25 09:14 Last Admin: 01/17/25 07:58 Dose: 100 mg Empagliflozin (Empagliflozin 10 Mg Tab) 10 mg PO DAILY [facility] Stop: 02/14/25 08:59 Last Admin: 01/17/25 07:58 Dose: 10 mg Glucagon (Glucagon For Inj 1 Mg Vial) 1 mg SQ UD PRN; Protocol PRN Reason: Hypoglycemia Protocol Stop: 02/13/25 09:25 Glucose (Glucose 40% Gel 15 Gm Tube) 15 - 30 gm PO UD PRN; Protocol PRN Reason: Hypoglycemia Protocol Stop: 02/13/25 09:25 Glucose (Glucose 10 Tab/Tube) 4 - 8 tab PO UD PRN; Protocol PRN Reason: Hypoglycemia Protocol Stop: 02/13/25 09:25 Guaifenesin (Guaifenesin Sugar Free 200 Mg/10 Ml Udc) 200 mg PO QID [facility] Stop: 02/15/25 12:59 Last Admin: 01/17/25 07:54 Dose: 200 mg Hydrocodone Bit/Homatropine Methylb (Hydrocodone/Homatropine Syrup 5mg/1.5mg 5ml Udp) 5 ml PO Q6H PRN PRN Reason: Cough Stop: 01/30/25 11:39 Last Admin: 01/16/25 20:18 Dose: 5 ml Sodium Chloride (Nss) 1,000 mls @ 80 mls/hr IV .[id number] [facility] Stop: 01/20/25 11:44 Insulin Aspart (Insulin Aspart Per Unit Charge) 0 units SC ACHS [facility] Stop: 02/13/25 09:25 Last Admin: 01/17/25 08:30 Dose: 3 units Insulin Glargine (Lantus Per Unit Charge) 5 units SQ DAILY [facility] Stop: 02/13/25 09:25 Last Admin: 01/17/25 08:31 Dose: 5 units Ipratropium [place] (Ipratropium [place] Neb Soln 0.02% 0.5mg/2.5ml Vial) 0.5 mg INH QIDR [facility] Stop: 02/13/25 06:59 Last Admin: 01/17/25 10:24 Dose: 0.5 mg Levalbuterol HCl (Levalbuterol 1.25 Mg/3 Ml Neb) 1.25 mg NEB QIDR [facility] Stop: 02/13/25 06:59 Last Admin: 01/17/25 10:24 Dose: 1.25 mg Loratadine (Loratadine 10 Mg Tab) 10 mg PO DAILY PRN PRN Reason: Allergy Symptoms Stop: 02/13/25 06:40 Losartan Potassium (Losartan Potassium 25 Mg Tab) 25 mg PO DAILY [facility] Stop: 02/15/25 08:59 Last Admin: 01/17/25 07:55 Dose: 25 mg Metoprolol Tartrate (Metoprolol Tartrate 25 Mg Tab) 25 mg PO BID [facility] Stop: 02/15/25 20:59 Last Admin: 01/17/25 07:54 Dose: 25 mg Miscellaneous (Carbohydrates For Hypoglycemia ) 15 - 30 gm PO UD PRN PRN Reason: Hypoglycemia Protocol Stop: 02/13/25 09:25 Miscellaneous (Remove Nicoderm Patch) 1 each N/A DAILY@0859 [facility] Stop: 02/14/25 08:58 Last Admin: 01/17/25 07:55 Dose: 1 each Multivitamins (Multivitamin Tab) 1 tab PO DAILY [facility] Stop: 02/13/25 08:59 Last Admin: 01/17/25 07:55 Dose: 1 tab Nicotine (Nicotine 14 Mg/24 Hr Patch) 1 patch TD QAM [facility] Stop: 02/13/25 10:14 Last Admin: 01/17/25 07:55 Dose: 1 patch Ondansetron HCl (Ondansetron Inj 2 Mg/Ml 2 Ml Vial) 4 mg IV Q6H PRN PRN Reason: Nausea And Vomiting Stop: 02/13/25 15:38 Oxycodone HCl (Oxycodone Hcl Ir 5 Mg Tab (Immediate Release)) 5 mg PO Q4H PRN PRN Reason: Pain Stop: 01/28/25 06:40 Potassium Chloride (Potassium Chloride 20 Meq/15 Ml Udc) 40 meq PO TID [facility] Stop: 02/15/25 07:39 Last Admin: 01/17/25 07:56 Dose: 40 meq Prednisone (Prednisone 10 Mg Tablet) 10 mg PO DAILY [facility] Stop: 02/13/25 08:59 Last Admin: 01/17/25 07:55 Dose: 10 mg Sodium Chloride (Sodium Chloride 0.65% Na Soln 45 Ml ([employer])) 2 sprays NA TID PRN PRN Reason: Nasal Congestion Stop: 02/15/25 01:12 Spironolactone (Spironolactone 12.5 Mg Tab) 12.5 mg PO DAILY [facility] Stop: 02/14/25 08:59 Last Admin: 01/17/25 07:56 Dose: 12.5 mg
[2025-01-17] MEDS: SODIUM CHLORIDE 0.9% 1,000 ML IV SCH (12:31)
[2025-01-18] MEDS ORDERED: Nursing to Pharmacy Communication SCH ×2 (07:00→17:30)
[2025-01-18] MEDS: INSULIN ASPART PER UNIT CHARGE SC SCH ×2 (07:07→17:47)
[2025-01-18 07:09] LABS: Hematocrit (blood only) 38.3 % (37.0-47.0); Hemoglobin 12.5 g/dL (12.0-16.0); Mean Corpuscular Hemoglobin 28.9 pg (25.0-34.0); Mean Corpuscular Volume 88.7 fL (80.0-100.0); Platelet Count 332 K/uL (130-400); RDW Standard Deviation 49.6 fL (36.4-46.3); Red Blood Count 4.32 M/uL (4.20-5.40); White Blood Count 8.02 K/ul (4.8-10.8)
[2025-01-18 07:41] LABS: Anion Gap 9.0 (3-11); Blood Urea Nitrogen 31.0 mg/dl (6-23); Calcium 9.3 mg/dl (8.6-10.3); Carbon Dioxide 22.0 mmol/L (21-32); Chloride 108.0 mmol/L (98-107); Creatinine Clr Calc Pharmacy 63.4 ml/min; Glucose 115.0 mg/dl (70-99(Fasting)); Magnesium 2.1 mg/dl (1.7-2.4); Potassium 3.9 mmol/L (3.5-5.1); Sodium 139.0 mmol/L (136-145)
--- NOTE | 2025-01-18 11:10 | Hospitalist Progress Note ---
Date of Service January 18, 2025 Assessment & Plan (1) Non-STEMI (non-ST elevated myocardial infarction): (2) Acute heart failure with mildly reduced ejection fraction (HFmrEF, 41-49%): (3) Acute passive congestion of liver: (4) Acute bronchitis: (5) Reactive airway disease: (6) Diabetes mellitus type 2 with complications: (7) Rheumatoid arthritis: Plan + COVID Per previous provider w/ addendum: Pt is a 54 yo F with evidence of non-ST AK and acute heart failure with decreased ejection fraction. Patient has responded diuretics. Continue goal-directed medical therapy for congestive heart failure and non- STEMI Continue potassium supplementation Patient has significant difficulty swallowing pills, use suspension/elixirs when available. Using Coreg since it is a smaller pill than the Toprol XL IV heparin was already stopped Cardiology consulted and following closely, plan for cardiac cath later today pt feels much improved from her acute bronchitis Cont. guaifenesin, Hycodan as needed for severe cough. Continue course of doxycycline Pt reports she was exposed to covid on 01/13/2025. [employer] on admission was negative. Checked for covid last evening and pt was found positive. cardiology updated Admission and Anticipated Discharge Date Admission Date: January 14, 2025 Subjective Pt seen in follow up of NSTEMI, bronchitis Currently sitting up in bed in NAD, overall feels improved but still w/ some cough Denies any chest pain or shortness of breath Pt seen by cardiology - plan for cardiac cath later today Pt reports she was exposed to covid on 01/13/2025. [employer] on admission was negative. Checked for covid last evening and pt was found positive. cardiology updated Review of Systems Review of Systems: All systems reviewed & are unremarkable except as noted in Subjective Physical Exam Physical Exam: Constitutional: obese F in NAD HEENT: Mucous membranes moist. Lungs: CTAB, no wheezes noted CV: S1-S2, regular Abdomen: Soft, nontender, nondistended Extremities: Lower extremity edema improving Neuro: awake, alert, answers appropriately, speech fluent, moves extremities Psych: Cooperative, normal mood Results & Data Results & Data Vital Signs (Past 12 Hours) Vital Signs Temp Pulse Pulse Resp BP BP Pulse Ox 01/18/25 10:59 36.7 C 67 20 124/80 99 01/18/25 10:51 66 16 100 01/18/25 09:00 01/18/25 08:00 63 01/18/25 07:53 36.6 C 59 L 18 109/72 100 01/18/25 07:19 72 18 98 01/18/25 03:34 36.5 C 59 L 18 109/72 100 01/18/25 01:48 37.4 C 01/17/25 23:12 38.0 C H 63 18 98/63 L 99 Pulse Ox O2 Del Method O2 Del Method 01/18/25 10:59 Room Air 01/18/25 10:51 Room Air 01/18/25 09:00 97 Room Air 01/18/25 08:00 01/18/25 07:53 Room Air 01/18/25 07:19 Room Air 01/18/25 03:34 Room Air 01/18/25 01:48 01/17/25 23:12 Room Air Laboratory Results 01/18/25 01/18/25 01/17/25 Range/Units 06:51 06:17 Unknown WBC 8.02 (4.8-10.8) K/ul RBC 4.32 (4.20-5.40) M/uL Hgb 12.5 (12.0-16.0) g/dL Hct 38.3 (37.0-47.0) % MCV 88.7 (80.0-100.0) fL MCH 28.9 (25.0-34.0) pg MCHC 32.6 (32.0-36.0) g/dL RDW Std Deviation 49.6 H (36.4-46.3) fL RDW Coeff of Timothy 15.3 H (11.5-14.5) % Plt Count 332 (130-400) K/uL MPV 9.7 (9.4-12.4) fL Sodium 139 (136-145) mmol/L Potassium 3.9 (3.5-5.1) mmol/L Chloride 108 H (98-107) mmol/L Carbon Dioxide 22 (21-32) mmol/L Anion Gap 9 (3-11) BUN 31 H (6-23) mg/dl Creatinine 1.03 D (0.6-1.2) mg/dl Est Cr Clr Drug Dosing 63.4 ml/min eGFR 64.21 BUN/Creatinine Ratio 30.1 H (10-20) Glucose 115 H (70-99(Fasting)) mg/dl POC Glucose 111 H (70-99) mg/dl Calcium 9.3 (8.6-10.3) mg/dl Phosphorus 3.6 (2.5-4.9) mg/dl Magnesium 2.1 (1.7-2.4) mg/dl SARS-CoV-2, RNA, NAAT POSITIVE A (NEGATIVE) 01/17/25 01/17/25 01/17/25 Range/Units 20:32 16:25 11:23 WBC (4.8-10.8) K/ul RBC (4.20-5.40) M/uL Hgb (12.0-16.0) g/dL Hct (37.0-47.0) % MCV (80.0-100.0) fL MCH (25.0-34.0) pg MCHC (32.0-36.0) g/dL RDW Std Deviation (36.4-46.3) fL RDW Coeff of Timothy (11.5-14.5) % Plt Count (130-400) K/uL MPV (9.4-12.4) fL Sodium (136-145) mmol/L Potassium (3.5-5.1) mmol/L Chloride (98-107) mmol/L Carbon Dioxide (21-32) mmol/L Anion Gap (3-11) BUN (6-23) mg/dl Creatinine (0.6-1.2) mg/dl Est Cr Clr Drug Dosing ml/min eGFR BUN/Creatinine Ratio (10-20) Glucose (70-99(Fasting)) mg/dl POC Glucose 123 H 151 H 152 H (70-99) mg/dl Calcium (8.6-10.3) mg/dl Phosphorus (2.5-4.9) mg/dl Magnesium (1.7-2.4) mg/dl SARS-CoV-2, RNA, NAAT (NEGATIVE) Medications Administered Current Inpatient Medications Acetaminophen (Acetaminophen 325 Mg Tab) 650 mg PO Q4H PRN PRN Reason: fever/pain Stop: 02/13/25 06:45 Last Admin: 01/17/25 23:20 Dose: 650 mg Albuterol (Albut/Ipratrop 3mg/0.5mg Neb 3 Ml Vial) 3 ml NEB Q4H PRN; Protocol PRN Reason: wheeze/sob Stop: 02/13/25 10:10 Aspirin (Aspirin 81 Mg Chew) 81 mg PO DAILY [facility] Stop: 02/14/25 12:29 Last Admin: 01/18/25 08:12 Dose: 81 mg Atorvastatin Calcium (Atorvastatin 40 Mg Tab) 40 mg PO QAM [facility] Stop: 02/14/25 08:59 Last Admin: 01/18/25 08:13 Dose: 40 mg Dextrose (Dextrose 50% 50 Ml Syringe) 25 - 50 ml IV UD PRN; Protocol PRN Reason: Hypoglycemia Protocol Stop: 02/13/25 09:25 Doxycycline Monohydrate (Doxycycline Susp 25 Mg/5 Ml 60ml) 100 mg PO BID [facility] Stop: 01/20/25 09:14 Last Admin: 01/18/25 08:13 Dose: 100 mg Empagliflozin (Empagliflozin 10 Mg Tab) 10 mg PO DAILY [facility] Stop: 02/14/25 08:59 Last Admin: 01/18/25 08:13 Dose: 10 mg Glucagon (Glucagon For Inj 1 Mg Vial) 1 mg SQ UD PRN; Protocol PRN Reason: Hypoglycemia Protocol Stop: 02/13/25 09:25 Glucose (Glucose 40% Gel 15 Gm Tube) 15 - 30 gm PO UD PRN; Protocol PRN Reason: Hypoglycemia Protocol Stop: 02/13/25 09:25 Glucose (Glucose 10 Tab/Tube) 4 - 8 tab PO UD PRN; Protocol PRN Reason: Hypoglycemia Protocol Stop: 02/13/25 09:25 Guaifenesin (Guaifenesin Sugar Free 200 Mg/10 Ml Udc) 200 mg PO QID [facility] Stop: 02/15/25 12:59 Last Admin: 01/18/25 08:12 Dose: 200 mg Hydrocodone Bit/Homatropine Methylb (Hydrocodone/Homatropine Syrup 5mg/1.5mg 5ml Udp) 5 ml PO Q6H PRN PRN Reason: Cough Stop: 01/30/25 11:39 Last Admin: 01/17/25 20:54 Dose: 5 ml Sodium Chloride (Nss) 1,000 mls @ 80 mls/hr IV .[id number] [facility] Stop: 01/20/25 11:44 Last Admin: 01/18/25 01:44 Dose: 80 mls/hr Insulin Aspart (Insulin Aspart Per Unit Charge) 0 units SC Q6 [facility] Stop: 02/17/25 07:14 Last Admin: 01/18/25 07:07 Dose: Not Given Insulin Glargine (Lantus Per Unit Charge) 5 units SQ DAILY [facility] Stop: 02/13/25 09:25 Last Admin: 01/18/25 08:58 Dose: 5 units Ipratropium [place] (Ipratropium [place] Neb Soln 0.02% 0.5mg/2.5ml Vial) 0.5 mg INH QIDR [facility] Stop: 02/13/25 06:59 Last Admin: 01/18/25 10:50 Dose: 0.5 mg Levalbuterol HCl (Levalbuterol 1.25 Mg/3 Ml Neb) 1.25 mg NEB QIDR [facility] Stop: 02/13/25 06:59 Last Admin: 01/18/25 10:50 Dose: 1.25 mg Loratadine (Loratadine 10 Mg Tab) 10 mg PO DAILY PRN PRN Reason: Allergy Symptoms Stop: 02/13/25 06:40 Losartan Potassium (Losartan Potassium 25 Mg Tab) 25 mg PO DAILY [facility] Stop: 02/15/25 08:59 Last Admin: 01/18/25 08:13 Dose: 25 mg Metoprolol Tartrate (Metoprolol Tartrate 25 Mg Tab) 25 mg PO BID [facility] Stop: 02/15/25 20:59 Last Admin: 01/18/25 08:13 Dose: 25 mg Miscellaneous (Carbohydrates For Hypoglycemia ) 15 - 30 gm PO UD PRN PRN Reason: Hypoglycemia Protocol Stop: 02/13/25 09:25 Miscellaneous (Remove Nicoderm Patch) 1 each N/A DAILY@0859 [facility] Stop: 02/14/25 08:58 Last Admin: 01/18/25 09:06 Dose: 1 each Multivitamins (Multivitamin Tab) 1 tab PO DAILY [facility] Stop: 02/13/25 08:59 Last Admin: 01/18/25 08:13 Dose: 1 tab Nicotine (Nicotine 14 Mg/24 Hr Patch) 1 patch TD QAM [facility] Stop: 02/13/25 10:14 Last Admin: 01/18/25 09:06 Dose: Not Given Ondansetron HCl (Ondansetron Inj 2 Mg/Ml 2 Ml Vial) 4 mg IV Q6H PRN PRN Reason: Nausea And Vomiting Stop: 02/13/25 15:38 Oxycodone HCl (Oxycodone Hcl Ir 5 Mg Tab (Immediate Release)) 5 mg PO Q4H PRN PRN Reason: Pain Stop: 01/28/25 06:40 Potassium Chloride (Potassium Chloride 20 Meq/15 Ml Udc) 40 meq PO TID [facility] Stop: 02/15/25 07:39 Last Admin: 01/18/25 08:12 Dose: 40 meq Prednisone (Prednisone 10 Mg Tablet) 10 mg PO DAILY [facility] Stop: 02/13/25 08:59 Last Admin: 01/18/25 08:12 Dose: 10 mg Sodium Chloride (Sodium Chloride 0.65% Na Soln 45 Ml ([place])) 2 sprays NA TID PRN PRN Reason: Nasal Congestion Stop: 02/15/25 01:12 Spironolactone (Spironolactone 12.5 Mg Tab) 12.5 mg PO DAILY [facility] Stop: 02/14/25 08:59 Last Admin: 01/18/25 08:12 Dose: 12.5 mg
--- NOTE | 2025-01-18 16:36 | Pre Anesthesia Assessment ---
Date of Service January 18, 2025 Pre Sedation Assessment Vital Signs Temp Pulse Pulse Resp BP BP Pulse Ox 01/18/25 10:59 98.1 F 67 20 124/80 99 01/18/25 10:51 66 16 100 01/18/25 09:00 01/18/25 08:00 63 01/18/25 07:53 97.9 F 59 L 18 109/72 100 01/18/25 07:19 72 18 98 01/18/25 03:34 97.7 F 59 L 18 109/72 100 01/18/25 01:48 99.3 F 01/17/25 23:12 100.4 F H 63 18 98/63 L 99 01/17/25 21:29 66 16 96 01/17/25 19:28 98.6 F 66 20 115/74 96 01/17/25 19:27 Pulse Ox O2 Del Method O2 Del Method 01/18/25 10:59 Room Air 01/18/25 10:51 Room Air 01/18/25 09:00 97 Room Air 01/18/25 08:00 01/18/25 07:53 Room Air 01/18/25 07:19 Room Air 01/18/25 03:34 Room Air 01/18/25 01:48 01/17/25 23:12 Room Air 01/17/25 21:29 Room Air 01/17/25 19:28 Room Air 01/17/25 19:27 Room Air Cardiovascular RRR, no murmur, no edema Respiratory normal respiratory effort, lungs clear to auscultation Pre-Sedation Airway Assessment Smoking Status: Current every day smoker Hx Sleep Apnea: No Hx Difficult Intubation: No Short, Thick Neck: No Thyromental Distance: < 3.5 Finger Breadths Oral Cavity: + Dental Abnormalities Mallampati Class: III ASA: ASA3 Procedure Planning Contraindications for Sedation: none Current Medications Reviewed: Yes Notes The planned sedation has been discussed with the patient. Informed Consent was obtained. I have identified the patient, determined the appropriateness of sedation and have assessed the patient immediately prior to the procedure. All medicine(s) and interventions are by my order.
[2025-01-18] MEDS: NITROGLYCERIN/D5W 100MCG/ML 20ML SYR ONE (16:39)
[2025-01-18] MEDS: niCARdipine 2,000 MCG/20 ML SYR ONE (16:39)
[2025-01-18] MEDS: MIDAZOLAM HCL 1 MG/ML 2ML VIAL ONE (16:55)
[2025-01-18] MEDS: HEPARIN (PORCINE) 1000 UNIT/ML 10 ML (CATH LAB USE ONLY) ONE (16:55)
[2025-01-18] MEDS: OPTIRAY 350 ONE (16:56)
--- NOTE | 2025-01-18 17:02 | Post Anesthesia Assessment ---
Date of Service January 18, 2025 Post Sedation Assessment Vital Signs Temp Pulse Pulse Resp BP BP Pulse Ox 01/18/25 10:59 98.1 F 67 20 124/80 99 01/18/25 10:51 66 16 100 01/18/25 09:00 01/18/25 08:00 63 01/18/25 07:53 97.9 F 59 L 18 109/72 100 01/18/25 07:19 72 18 98 01/18/25 03:34 97.7 F 59 L 18 109/72 100 01/18/25 01:48 99.3 F 01/17/25 23:12 100.4 F H 63 18 98/63 L 99 01/17/25 21:29 66 16 96 01/17/25 19:28 98.6 F 66 20 115/74 96 01/17/25 19:27 Pulse Ox O2 Del Method O2 Del Method 01/18/25 10:59 Room Air 01/18/25 10:51 Room Air 01/18/25 09:00 97 Room Air 01/18/25 08:00 01/18/25 07:53 Room Air 01/18/25 07:19 Room Air 01/18/25 03:34 Room Air 01/18/25 01:48 01/17/25 23:12 Room Air 01/17/25 21:29 Room Air 01/17/25 19:28 Room Air 01/17/25 19:27 Room Air Recovery Score Activity: Moves 4 extremities Respiration: Deep Breath/Cough Circulation: +/-20% PreAnes Value Consciousness: Fully Awake Oxygen Saturation: O2 needed for >90% Discharge Sedation Level of Care: Fast Track Phase II
--- NOTE | 2025-01-18 17:04 | Post Operative Brief Note ---
Cardiology Brief Post Op Date of Surgery January 18, 2025 Pre & Post Diagnosis NSTEMI Procedure cardiac catheterization ultrasound guided vascular access Hypertrichologist Landon Dey MD Dispatch Associate Jadyn Estimated Blood Loss 10 Findings See Below Mild nonobstructive CAD Coronary vasospasm Anesthesia Type RN Sedation Disposition Disposition: PCU
--- NOTE | 2025-01-18 22:21 | Cardiac Catheterization ---
[facility] Data: Healthcare Facility Administrator Cardiac Status Clinical evaluation leading to the procedure CAD Presenation: Non STEMI Diagnostic Physicians Name: Landon Dey MD Closure Device Recommendations: Medical Therapy and/or Counseling Cardiac Cath Procedure Full Procedure Date January 18, 2025 Pre-Procedure Diagnosis Pre-Procedure Diagnosis: Non STEMI AUC Score AUC Score: 8 Post-Procedure Diagnosis Post-Procedure Diagnosis: Mild CAD and Normal Intracardiac Pressures Procedure(s) Performed Procedure(s) Performed: Coronary Angiography, Left Heart Cath and Ultrasound Guided Vascular Access General Lithographic Worker Landon Dey MD Side Laster(s) Jadyn Estimated Blood Loss Estimated Blood Loss: 15 Medication(s) Medication(s): Fentanyl, Heparin, Lidocaine 1%, Nicardipine, Nitroglycerin and Versed Summary of Findings Indication: NSTEMI Access: 6 Fr slender right radial artery under ultrasound guidance Catheters: [place], diagnostic JR4 Findings: LM -Short, no significant disease LAD -medium caliber, no significant disease, distal vessel small and tortuous and extends around apex. Small to medium D1 with 20 to 30% ostial stenosis. Circumflex -medium caliber, no significant disease. Medium OM2, large bifurcating OM3 without significant disease. Distal AV groove circumflex without disease. RCA -dominant, medium caliber, mid segment 20 to 30% stenosis initially appearing more severe with vasospasm that was relieved with IC nitroglycerin/nicardipine. Distal vessel/RPDA without disease. LVEDP -18 Arterial Closure: TR band Summary: 1. Mild nonobstructive coronary artery disease - 20-30% mid RCAinitially more moderate stenosis which improved with IA vasodilators consistent with coronary vasospasm 20-30% ostial D1 2. Normal intracardiac filling pressure Recommendations: Continued ASCVD risk factor modification Could consider trial of vasodilators for coronary spasm if chest symptoms in the future Hemodynamics Rest Ao:: 124/64/89 Final Ao: 119/60/98 LV: 120/18 Recommendations Recommendations: Medical Therapy and/or Counseling Radiation Exposure (mGy) 947 Contrast (mls) 40 Anesthesia Moderate [id number] Procedural Complication(s) None Disposition Healthcare Facility Administrator Holding/Recovery I attest to the content of the Intraoperative Record and any orders documented therein. Any exceptions are noted below. [facility] Card Cath Procedure Codes Cardiac Catheterization Procedure 1: Cardiovascular Cath Procedures: 00433 Coronaries and LHC (+/-LV) Therapeutic Services & Ancillary Procedure 1: Cardiovascular Tx and Anc Procedures: 50808 Ultrasonic Guidance Vascular Access Moderate Sedation Procedure 1: Sedation/Anesthesia: 37911 Mod Sedation by the same physician;Init15 Min Child Age 5 & Up PG Care Time/CCT Total # of Minutes Spent Total Time Spent with Patient: Total time spent is greater than 50% in coordination of care (as documented) at patient's floor/unit and/or counseling patient:
[2025-01-19 05:52] LABS: Hematocrit (blood only) 34.4 % (37.0-47.0); Hemoglobin 11.5 g/dL (12.0-16.0); Mean Corpuscular Hemoglobin 29.6 pg (25.0-34.0); Mean Corpuscular Volume 88.7 fL (80.0-100.0); Platelet Count 286 K/uL (130-400); RDW Standard Deviation 49.5 fL (36.4-46.3); Red Blood Count 3.88 M/uL (4.20-5.40); White Blood Count 8.50 K/ul (4.8-10.8)
[2025-01-19 06:08] LABS: Anion Gap 7.0 (3-11); Blood Urea Nitrogen 22.0 mg/dl (6-23); Calcium 8.9 mg/dl (8.6-10.3); Carbon Dioxide 23.0 mmol/L (21-32); Chloride 107.0 mmol/L (98-107); Creatinine Clr Calc Pharmacy 71.0 ml/min; Glucose 87.0 mg/dl (70-99(Fasting)); Magnesium 1.9 mg/dl (1.7-2.4); Potassium 4.0 mmol/L (3.5-5.1); Sodium 137.0 mmol/L (136-145)
[2025-01-19 07:54] VITALS: TEMP 98.1
[2025-01-19] MEDS ORDERED: LEVALBUTEROL 1.25 MG/3 ML NEB NEB PRN (10:33)
[2025-01-19] MEDS ORDERED: IPRATROPIUM BROMIDE NEB SOLN 0.02% 0.5MG/2.5ML VIAL INH PRN (10:33)
[2025-01-19 11:45] VITALS: RESP 18; O2SAT 97
--- NOTE | 2025-01-19 12:57 | Discharge Summary ---
Date of Service January 19, 2025 Admission HPI Per Admitting Provider History obtained from patient and records. Medical history significant for hypertension, possible RACHEL, pulmonary hypertension, RA on chronic steroid Rx, prediabetes, morbid obesity, ongoing tobacco abuse. Patient has not been well since last month. Junky cough symptoms productive of green sputum. Denies aspiration. Short-lived response to outpatient steroid taper and Z-Zeb Rx courses prescribed by urgent care. Increased bilateral leg swelling with persistent junky cough symptoms and SOB over the last few days despite. Sticky cough symptoms. Denies chest pain. Patient not sure about weight gain. Patient seen at urgent care center yesterday. Chest x-ray without abnormalities. Abnormal outpatient lab results noted. BNP elevated at 300, ALT 88, AST 57, glucose 305. Patient consulted ER for worsening symptoms. Ceftriaxone administered at the ER. Medical History as above Surgical History : Bilateral knee surgeries, elbow surgery, toe surgery, hip surgeries Family History : DM, throat cancer, heart disease, stroke, mood disorder Personal/Social history : 1/4 pack daily, occasional EtOH intake, disabled Admission Exam Per Admitting Provider GENERAL: Slightly uncomfortable, obese, cushingoid, no respiratory distress SKIN: Normal color, warm HEENT: [place] palpebral conjunctivae, no ptosis, dry buccal mucosa NECK : Supple, short neck, no tenderness CHEST : Decreased breath sounds, occasional expiratory wheezes, no tenderness HEART : RRR, no obvious murmurs ABDOMEN: Some distention, nontender EXTREMITIES : Bilateral LE swelling without tenderness, palpable pulses, no other conspicuous deformities noted NEUROLOGIC : Coherent, no facial asymmetry, no other gross focality Principal Diagnosis NSTEMI Acute heart failure with mildly reduced ejection fraction Acute bronchitis +COVID Discharge Exam Constitutional: obese F in NAD HEENT: Mucous membranes moist. Lungs: CTAB, no wheezes noted CV: S1-S2, regular Abdomen: Soft, nontender, nondistended Extremities: Lower extremity edema resolved Neuro: awake, alert, answers appropriately, speech fluent, moves extremities Psych: Cooperative, normal mood Discharge Data Allergies Allergy/AdvReac Type Severity Reaction Status Date / Time peach Allergy Intermediate Hives Verified 01/14/25 03:39 Consultations 01/14/25 05:36 ED Decision to Admit Stat 01/14/25 08:07 Consult Cardiology Routine Procedures Performed Operation Date: 01/18/25 13:00 Actual Procedures p Cath, Left with Cors and Vent - Christopher R. Dey, MD p Cineradiography w/Routine Exam - Landon Dey MD Ordered Studies 01/14/25 03:17 CT angio chest PE protocol Stat FINDINGS: Adequate contrast bolus without evidence of pulmonary embolism. Mild smooth interlobular septal thickening is seen in the lungs, especially in the lower lobes. Few confluent areas of ground glass attenuation are seen in the central peribronchovascular location. The central airways are patent. No pleural effusion. The heart, aorta, and pulmonary arteries are of normal size and configuration. No pericardial effusion is identified. There are no appreciable coronary artery and aortic atherosclerotic calcifications. The thyroid is unremarkable. No mediastinal, hilar, or axillary lymphadenopathy is noted. No suspicious lytic or sclerotic osseous lesions are identified. IMPRESSION: 1. No evidence of pulmonary embolism. 2. Mild smooth interlobular septal thickening in lungs with confluent areas of ground glass attenuation in central peribronchovascular location - suggestive of mild pulmonary edema. 01/14/25 06:48 US venous doppler LE BI Stat FINDINGS: There is no sonographic evidence of deep venous thrombosis identified in the right or left lower extremity. The common femoral, superficial femoral, and popliteal veins are patent and normally compressible bilaterally. The greater saphenous vein and the profunda femoris vein at the junction with the common femoral vein are clear in both legs. The visualized calf veins are patent bilaterally. IMPRESSION: There is no sonographic evidence of deep venous thrombosis identified in the right or left lower extremity. 01/18/25 08:31 CL Cath Imgs for PACS use only Routine Diabetes Follow up Diabetes Follow-up Needed for Newly Diagnosed Diabetes Hospital Course (1) Non-STEMI (non-ST elevated myocardial infarction): (2) Acute heart failure with mildly reduced ejection fraction (HFmrEF, 41-49%): (3) Acute passive congestion of liver: (4) Acute bronchitis: (5) Reactive airway disease: (6) Diabetes mellitus type 2 with complications: (7) Rheumatoid arthritis: Plan + COVID Pt is a 54 yo F with evidence of non-ST PA and Acute heart failure with decreased ejection fraction. Patient has responded to diuretics. Continued goal-directed medical therapy for congestive heart failure and non- STEMI IV heparin was already stopped Cardiology consulted and following closely, s/p cardiac cath on 01/18/2025 Summary: 1. Mild nonobstructive coronary artery disease - 20-30% mid RCAinitially more moderate stenosis which improved with IA vasodilators consistent with coronary vasospasm 20-30% ostial D1 2. Normal intracardiac filling pressure Recommendations: Continued ASCVD risk factor modification Could consider trial of vasodilators for coronary spasm if chest symptoms in the future Pt's chest discomfort has resolved and she feels much improved from her acute bronchitis. She was positive for Covid. Reported exposure on 01/13/2025, however [employer] on admission was positive. Discussed w/ cardiology medications on discharge - change metoprolol to metoprolol xl Cont other current card meds (pt is already on losartan - dose decreased, spironolactone, jardiance, atorvastatin, asa) start Ranexa in view of card cath findings f/u in cardiology clinic post discharge Cont. guaifenesin, finish course of doxycycline Total Time Total Time Spent Total Time Spent (In Minutes): 40 Discharge Plan Discharge Items Patient Disposition: Home - Self-Care Reason For Visit: CHF Discharge Diagnosis: NSTEMI Acute heart failure with mildly reduced ejection fraction Acute bronchitis +COVID Condition on Discharge: Fair Activity: Per Instructions section Non-emergency contact: Primary Care Provider Call non-emergency contact if: you have any medication questions and your symptoms worsen Follow-up/Referrals: Fatmata Nicohls PA-C [Primary Care Provider] - Diet: Carb Consistent or DM2, Heart Healthy and Low Sodium (2gm) Addtl Attending Provider Instructions: Follow up with your primary care doctor and cardiology. You should be seen by your primary care doctor within 1 week. Continue using guaifenesin and finish antibiotic course as prescribed. You were started on several medications for your heart, review them closely and take them as prescribed. These medications may be further adjusted at your appointments with primary care doctor and with cardiology. Pending Studies at Discharge: No Stand-Alone Forms: [employer], Smoking Cessation Medications and DC Order Prescriptions: New guaifenesin 100 mg/5 mL Liquid 200 mg PO QID Qty: 118 0RF doxycycline monohydrate 25 mg/5 mL Suspension For Reconstitution 100 mg PO BID 2 Days Qty: 80 0RF metoprolol succinate 25 mg Tablet Extended Release 24 Hr 25 mg PO QAM Qty: 30 0RF ranolazine 500 mg Tablet Extended Release 12 Hr 500 mg PO BID Qty: 60 0RF losartan 25 mg Tablet 25 mg PO DAILY Qty: 30 0RF atorvastatin 40 mg Tablet 40 mg PO QAM Qty: 30 0RF spironolactone 25 mg Tablet 12.5 mg PO DAILY Qty: 20 0RF aspirin [Children's Aspirin] 81 mg Tablet,Chewable 81 mg PO DAILY Qty: 30 0RF Jardiance 10 mg Tablet 10 mg PO DAILY Qty: 30 0RF Continued multivitamin Tablet 1 tab PO DAILY acetaminophen [Tylenol Extra Strength] 500 mg Tablet 1,000 mg PO Q6H PRN (Reason: Pain) loratadine 10 mg Tablet 10 mg PO DAILY PRN (Reason: Allergy Symptoms) albuterol sulfate 90 mcg/actuation HFA aerosol inhaler 90 mcg INHALATION 1XD nystatin 100,000 unit/mL suspension 100,000 unit PO 1XD tramadol 50 mg tablet 50 mg PO 1XD prednisone 10 mg tablet 10 mg PO DAILY Discontinued losartan 50 mg tablet 50 mg PO 1XD triamterene-hydrochlorothiazid 37.5-25 mg tablet 37.5 tab PO 1XD Discharge Orders: Discharge Order- CHF (Routine); Ordered 01/19/25 Ordered By: Kale Riggs/Other Patient Handouts: Diabetes: Meal Planning, Type 2 Diabetes Admission Data Admit Date/Time: 01/14/25 05:53 Attending Provider: Kale Gudino Admit Provider: James Killian Primary Care Provider: Fatmata Nichols Other Providers: James Killian; Silvia Macario; Memo Fam Other Interventions: Discharge Summary Assessment (RN) Last Done: 01/19/25 14:21
--- NOTE | 2025-01-19 14:22 | Cardiology Progress Note ---
Date of Service January 19, 2025 Assessment & Plan (1) Non-STEMI (non-ST elevated myocardial infarction): Plan: (2) Diabetes mellitus type 2 with complications: (3) Acute bronchitis: (4) Rheumatoid arthritis: (5) Acute heart failure with mildly reduced ejection fraction (HFmrEF, 41-49%): (6) Reactive airway disease: (7) Febrile illness, acute: (8) Pulmonary hypertension: (9) HTN (hypertension): Plan NSTEMI - asymptomatic, Type II IN Mild non-obstructive CAD with coronary vasospasm Acute bronchitis - improved, persistent - defer to hospitalist Viral syndrome - improved, persistent - defer to hospitalist Rheumatoid arthritis DM Acute HFrEF - resolved HTN - stable change metoprolol to metoprolol xl Cont other current card meds start Ranexa in view of card cath findings f/u in cardiology clinic post discharge stable from card standpoint for discharge CARD CATH Summary: 1. Mild nonobstructive coronary artery disease - 20-30% mid RCAinitially more moderate stenosis which improved with IA vasodilators consistent with coronary vasospasm 20-30% ostial D1 2. Normal intracardiac filling pressure Recommendations: Continued ASCVD risk factor modification Could consider trial of vasodilators for coronary spasm if chest symptoms in the future Hemodynamics Rest Ao:: 124/64/89 Final Ao: 119/60/98 LV: 120/18 Admission and Anticipated Discharge Date Admission Date: January 14, 2025 Subjective Patient on exam is sitting in chair in NAD; no c/o cp, sob, palpitations, dizziness, LOC; +COVID; s/p card cath Review of Systems Review of Systems: as per HPI Physical Exam Physical Exam: Constitutional: a, o x 3 Eyes: anicteric sclerae, pink conjunctiva Neck: supple, NT, no JVD Respiratory: BLBS, no rales, no wheezing Cardiovascular: S1S2, soft sys murm Gastrointestinal (Abdomen): soft, NT, bs+, no HSM Neurologic: A, O X 3; no gross focal motor deficits Results & Data Vital Signs (Past 12 Hours) Vital Signs Temp 36.7 C 01/19/25 11:44 Pulse 61 01/19/25 11:44 Resp 18 01/19/25 11:44 BP 107/67 01/19/25 11:44 Pulse Ox 97 01/19/25 11:44 O2 Del Method Room Air 01/19/25 11:44 FiO2 21 01/15/25 15:37 Intake & Output 01/18/25 01/19/25 01/19/25 18:59 06:59 18:59 Intake Total 1240 / 2498.667 1258.667 / 2498.667 1116 / 1116 Balance 1240 / 2498.667 1258.667 / 2498.667 1116 / 1116 Weight 84 kg Intake: IV 1000 / 1957.667 958.667 / 8.667 876 / 876 Sodium Chloride 0.9% 1,000 ml @ 1000 / 8.667 958.667 / 8.667 876 / 876 80 mls/hr IV .[id number] [facility] Rx#: [id number] Oral 240 / 540 300 / 540 240 / 240 Other: # Unmeasured Voids 2 3 Weight Measurement Method Built in [facility] Vital Signs Temp Pulse Pulse Resp BP BP Pulse Ox 01/19/25 11:44 36.7 C 61 18 107/67 97 01/19/25 09:21 64 01/19/25 08:00 64 01/19/25 08:00 01/19/25 07:46 36.7 C 62 20 131/74 99 01/19/25 07:10 73 16 99 01/19/25 03:42 37.3 C 69 16 108/69 92 O2 Del Method 01/19/25 11:44 Room Air 01/19/25 09:21 01/19/25 08:00 01/19/25 08:00 Room Air 01/19/25 07:46 Room Air 01/19/25 07:10 Room Air 01/19/25 03:42 Room Air Laboratory Results Laboratory Results WBC 8.50 K/ul (4.8-10.8) 01/19/25 05:21 RBC 3.88 M/uL (4.20-5.40) L 01/19/25 05:21 Hgb 11.5 g/dL (12.0-16.0) L 01/19/25 05:21 POC Hgb 14.3 g/dl (12.0-16.0) 01/14/25 03:28 Hct 34.4 % (37.0-47.0) L 01/19/25 05:21 POC Hct 42 % (37-47) 01/14/25 03:28 MCV 88.7 fL (80.0-100.0) 01/19/25 05:21 MCH 29.6 pg (25.0-34.0) 01/19/25 05:21 MCHC 33.4 g/dL (32.0-36.0) 01/19/25 05:21 RDW Std Deviation 49.5 fL (36.4-46.3) H 01/19/25 05:21 RDW Coeff of Timothy 15.3 % (11.5-14.5) H 01/19/25 05:21 Plt Count 286 K/uL (130-400) 01/19/25 05:21 MPV 10.0 fL (9.4-12.4) 01/19/25 05:21 Immature Gran % (Auto) 0.6 % 01/15/25 05:28 Neut % (Auto) 50.5 % 01/15/25 05:28 Lymph % (Auto) 42.0 % 01/15/25 05:28 Hoke % (Auto) 5.0 % 01/15/25 05:28 Eos % (Auto) 1.5 % 01/15/25 05:28 Baso % (Auto) 0.4 % 01/15/25 05:28 Neut # (Auto) 8.61 K/uL (1.40-6.50) H 01/15/25 05:28 Lymph # (Auto) 7.16 K/uL (1.20-3.40) H 01/15/25 05:28 Hoke # (Auto) 0.86 K/uL (0.11-0.59) H 01/15/25 05:28 Eos # (Auto) 0.26 K/uL (0.00-0.50) 01/15/25 05:28 Baso # (Auto) 0.07 K/uL (0.00-0.20) 01/15/25 05:28 Immature Gran # (Auto) 0.10 K/uL (0.01-0.20) 01/15/25 05:28 PT 10.7 Seconds (9.0-12.0) 01/14/25 06:12 INR 1.0 (0.9-1.1) 01/14/25 06:12 APTT 22 Seconds (21-31) 01/14/25 06:12 PTT Ratio 0.8 01/14/25 06:12 Heparin Anti-Xa, Unfract 0.40 IU/ml (0.3-0.7) 01/16/25 05:36 POC Sodium 137 mmol/L (135-144) 01/14/25 03:28 Sodium 137 mmol/L (136-145) 01/19/25 05:21 POC Potassium 4.3 mmol/L (3.3-5.0) 01/14/25 03:28 Potassium 4.0 mmol/L (3.5-5.1) 01/19/25 05:21 POC Chloride 101 mmol/L (101-112) 01/14/25 03:28 Chloride 107 mmol/L (98-107) 01/19/25 05:21 Carbon Dioxide 23 mmol/L (21-32) 01/19/25 05:21 POC Total CO2 25 mmol/L (24-31) 01/14/25 03:28 Anion Gap 7 (3-11) 01/19/25 05:21 POC Anion Gap 16.0 mmol/L (16-25) 01/14/25 03:28 POC BUN 33 mg/dl (7-18) H 01/14/25 03:28 BUN 22 mg/dl (6-23) 01/19/25 05:21 Creatinine 0.92 mg/dl (0.6-1.2) 01/19/25 05:21 POC Creatinine 1.1 mg/dl (0.6-1.3) 01/14/25 03:28 Est Cr Clr Drug Dosing 71.0 ml/min 01/19/25 05:21 eGFR 73.53 01/19/25 05:21 BUN/Creatinine Ratio 23.9 (10-20) H 01/19/25 05:21 Glucose 87 mg/dl (70-99(Fasting)) 01/19/25 05:21 POC Glucose 137 mg/dl (70-99) H 01/19/25 10:58 POC Glucose (other) 273 mg/dl (70-99) H 01/14/25 03:28 Estimat Average Glucose 157 mg/dl 01/14/25 06:20 Hemoglobin A1c 7.1 % (4.5-5.6) H 01/14/25 06:20 Lactate 1.9 mmol/L (0.4-2.0) 01/14/25 06:12 Calcium 8.9 mg/dl (8.6-10.3) 01/19/25 05:21 POC Ioniz Calcium [place] 1.32 mmol/l (1.12-1.32) 01/14/25 03:28 Phosphorus 3.3 mg/dl (2.5-4.9) 01/19/25 05:21 Magnesium 1.9 mg/dl (1.7-2.4) 01/19/25 05:21 Total Bilirubin 1.1 mg/dl (0.2-1.0) H 01/15/25 05:28 Direct Bilirubin 0.2 mg/dl (0-0.2) 01/14/25 07:20 AST 31 U/L (13-39) 01/15/25 05:28 ALT 83 U/L (7-52) H 01/15/25 05:28 Alkaline Phosphatase 94 U/L (34-104) 01/15/25 05:28 Troponin I High Sens 489.1 pg/ml (0-14) H* D 01/14/25 15:47 B-Natriuretic Peptide 87 pg/ml (0-100) 01/14/25 07:25 Total Protein 7.2 gm/dl (6.0-8.3) 01/15/25 05:28 Albumin 3.8 gm/dl (3.4-5.0) 01/15/25 05:28 Globulin 3.4 gm/dl (2.5-4.0) 01/15/25 05:28 Albumin/Globulin Ratio 1.1 (0.9-2) 01/15/25 05:28 Triglycerides 162 mg/dl (0-150) H 01/15/25 05:28 Cholesterol 183 mg/dl (0-200) 01/15/25 05:28 LDL Cholesterol, Calc 77 mg/dl 01/15/25 05:28 VLDL Cholesterol, Calc 32 mg/dl (0-30) H 01/15/25 05:28 HDL Cholesterol 74 mg/dl 01/15/25 05:28 Cholesterol/HDL Ratio 2.5 (0-5) 01/15/25 05:28 Procalcitonin 0.15 ng/ml (0-0.5) 01/14/25 06:12 TSH 1.248 uIu/ml (0.300-4.500) 01/14/25 06:12 HCG, Qual Negative (Negative) 01/14/25 03:15 PTH Intact 20.3 pg/ml (12.0-88.0) 01/14/25 07:25 Adenovirus (PCR) Not Detected (NotDetected) 01/14/25 00:17 B. pertussis DNA (PCR) Not Detected (NotDetected) 01/14/25 00:17 B.parapertussis DNA PCR Not Detected (NotDetected) 01/14/25 00:17 C. pneumoniae DNA (PCR) Not Detected (NotDetected) 01/14/25 00:17 Coronavirus OC43 (PCR) Not Detected (NotDetected) 01/14/25 00:17 Coronavirus HKU1 (PCR) Not Detected (NotDetected) 01/14/25 00:17 Coronavirus 229E (PCR) Not Detected (NotDetected) 01/14/25 00:17 SARS-CoV-2 (PCR) Not Detected (NotDetected) 01/14/25 00:17 Coronavirus NL63 (PCR) Not Detected (NotDetected) 01/14/25 00:17 Human Metapneumovir PCR Not Detected (NotDetected) 01/14/25 00:17 Influenza Type A (PCR) Not Detected (NotDetected) 01/14/25 00:17 Influenza Type B (PCR) Not Detected (NotDetected) 01/14/25 00:17 M. pneumoniae (PCR) Not Detected (NotDetected) 01/14/25 00:17 Parainfluenza 1 (PCR) Not Detected (NotDetected) 01/14/25 00:17 Parainfluenza 2 (PCR) Not Detected (NotDetected) 01/14/25 00:17 Parainfluenza 3 (PCR) Not Detected (NotDetected) 01/14/25 00:17 Parainfluenza 4 (PCR) Not Detected (NotDetected) 01/14/25 00:17 RSV (PCR) Not Detected (NotDetected) 01/14/25 00:17 Entero/Rhino (PCR) Not Detected (NotDetected) 01/14/25 00:17 SARS-CoV-2, RNA, NAAT POSITIVE (NEGATIVE) A 01/17/25 Unknown Impressions Chest CTA 01/14/25 03:17 EXAM: CT angio chest PE protocol CLINICAL HISTORY: Dyspnea TECHNIQUE: Contiguous axial images were obtained from the neck base through the upper abdomen following intravenous administration of iodinated contrast material. Angiographic images were processed, 3D MIP images were acquired for interpretation. If IV contrast material had not been administered, the likelihood of detecting abnormalities relevant to the patient's condition would have been substantially decreased. Coronal and sagittal 3-D MIPs were likewise performed and indicated to increase the sensitivity of detecting diffuse clinically relevant pathology. CT scan was performed according to ALARA (as low as reasonable achievable). COMPARISON: None. FINDINGS: Adequate contrast bolus without evidence of pulmonary embolism. Mild smooth interlobular septal thickening is seen in the lungs, especially in the lower lobes. Few confluent areas of ground glass attenuation are seen in the central peribronchovascular location. The central airways are patent. No pleural effusion. The heart, aorta, and pulmonary arteries are of normal size and configuration. No pericardial effusion is identified. There are no appreciable coronary artery and aortic atherosclerotic calcifications. The thyroid is unremarkable. No mediastinal, hilar, or axillary lymphadenopathy is noted. No suspicious lytic or sclerotic osseous lesions are identified. IMPRESSION: 1. No evidence of pulmonary embolism. 2. Mild smooth interlobular septal thickening in lungs with confluent areas of ground glass attenuation in central peribronchovascular location - suggestive of mild pulmonary edema. Electronically signed by Jovani Dwyer 01-14-2025 05:34 AM Venous Doppler Study 01/14/25 06:48 ULTRASOUND BILATERAL LOWER EXTREMITY VENOUS CLINICAL HISTORY: Lower extremity edema. COMPARISON STUDY: No priors TECHNIQUE: Real-time, grayscale, and color Doppler sonography of the deep veins of the right and left lower extremity was performed from the inguinal crease to the calf. Compression and augmentation were utilized. FINDINGS: There is no sonographic evidence of deep venous thrombosis identified in the right or left lower extremity. The common femoral, superficial femoral, and popliteal veins are patent and normally compressible bilaterally. The greater saphenous vein and the profunda femoris vein at the junction with the common femoral vein are clear in both legs. The visualized calf veins are patent bilaterally. IMPRESSION: There is no sonographic evidence of deep venous thrombosis identified in the right or left lower extremity. ACT 112: Negative or not required by law. Electronically signed by: Andres Pappas M.D. 01/14/2025 9:07 AM Chest X-Ray 01/15/25 15:26 Technique: PA and lateral views of the chest were obtained Comparison is made to the prior examination dated 04/16/2017 Findings: There are no confluent pulmonary infiltrates. The heart size is within normal limits. No pleural effusion or pneumothorax is seen. There is no definite pulmonary nodule. No fracture is noted. No foreign body is seen Impression: No active disease Electronically signed by Scott Kirby 01-15-2025 5:16 PM Diagnostic Findings CBC 01/19/25 Range/Units 05:21 WBC 8.50 (4.8-10.8) K/ul RBC 3.88 L (4.20-5.40) M/uL Hgb 11.5 L (12.0-16.0) g/dL Hct 34.4 L (37.0-47.0) % Plt Count 286 (130-400) K/uL Comprehensive Metabolic Panel 01/19/25 Range/Units 05:21 Sodium 137 (136-145) mmol/L Potassium 4.0 (3.5-5.1) mmol/L Chloride 107 (98-107) mmol/L Carbon Dioxide 23 (21-32) mmol/L BUN 22 (6-23) mg/dl Creatinine 0.92 (0.6-1.2) mg/dl Glucose 87 (70-99(Fasting)) mg/dl Calcium 8.9 (8.6-10.3) mg/dl Intake and Output 01/18/25 01/19/25 01/19/25 22:59 06:59 14:59 Intake Total 440 / 2498.667 1058.667 / 2498.667 111 / 1116 Balance 440 / 2498.667 1058.667 / 2498.667 111 / 111 Intake: IV 958.667 / 1958.667 876 / 876 Sodium Chloride 0.9% 1,000 ml @ 958.667 / 1958.667 876 / 876 80 mls/hr IV .[id number] [facility] Rx#: [id number] Oral 440 / 540 100 / 540 240 / 240 Other: # Unmeasured Voids 1 3 Weight 84 kg Weight Measurement Method Built in [facility] Medications Administered Home Medications Medication Instructions Recorded Confirmed Last Taken acetaminophen 500 mg tablet 1,000 mg PO Q6H PRN Pain 07/13/19 01/14/25 1 Day Ago (Tylenol Extra Strength) ~01/13/25 1000 loratadine 10 mg tablet 10 mg PO DAILY PRN Allergy Symptoms 07/13/19 01/14/25 1 Day Ago ~01/13/25 10 multivitamin 1 tab PO DAILY 07/13/19 01/14/25 2 Days Ago ~01/12/25 albuterol sulfate 90 mcg/actuation 90 mcg inhalation 1XD 01/14/25 01/14/25 1 Day Ago aerosol inhaler ~01/13/25 90 losartan 50 mg tablet 50 mg PO 1XD 01/14/25 01/14/25 1 Day Ago ~01/13/25 0.2 nystatin 100,000 unit/mL oral 100,000 unit PO 1XD 01/14/25 01/14/25 1 Day Ago suspension ~01/13/25 prednisone 10 mg tablet 10 mg PO DAILY 01/14/25 01/14/25 Unknown tramadol 50 mg tablet 50 mg PO 1XD 01/14/25 01/14/25 1 Day Ago ~01/13/25 50 triamterene 37.5 37.5 tab PO 1XD 01/14/25 01/14/25 1 Day Ago mg-hydrochlorothiazide 25 mg tablet ~01/13/25 doxycycline monohydrate 25 mg/5 mL 100 mg (20 mL) PO BID 2 days #80 mL 01/19/25 Unknown oral suspension guaifenesin 100 mg/5 mL oral liquid 200 mg (10 mL) PO QID #118 mL 01/19/25 Unknown Active Medications Generic Name Dose Route Start Last Admin Trade Name Freq PRN Reason Stop Dose Admin Acetaminophen 650 mg 01/14/25 12:57 01/17/25 23:20 Acetaminophen 325 Mg Tab PO 02/13/25 06:45 650 mg Q4H PRN Administration fever/pain Aspirin 81 mg 01/15/25 12:30 01/19/25 08:02 Aspirin 81 Mg Chew PO 02/14/25 12:29 81 mg DAILY [facility] Administration Atorvastatin Calcium 40 mg 01/15/25 09:00 01/19/25 07:55 Atorvastatin 40 Mg Tab PO 02/14/25 08:59 40 mg QAM [facility] Administration Doxycycline Monohydrate 100 mg 01/15/25 09:15 01/19/25 07:56 Doxycycline Susp 25 Mg/5 Ml 60ml PO 01/20/25 09:14 100 mg BID [facility] Administration Empagliflozin 10 mg 01/15/25 09:00 01/19/25 07:56 Empagliflozin 10 Mg Tab PO 02/14/25 08:59 10 mg DAILY [facility] Administration Guaifenesin 200 mg 01/16/25 13:00 01/19/25 12:29 Guaifenesin Sugar Free 200 Mg/10 Ml Udc PO 02/15/25 12:59 200 mg QID [facility] Administration Hydrocodone Bit/Homatropine Methylb 5 ml 01/16/25 11:40 01/17/25 20:54 Hydrocodone/Homatropine Syrup 5mg/1.5mg 5ml Udp PO 01/30/25 11:39 5 ml Q6H PRN Administration Cough Insulin Aspart 0 units 01/18/25 17:30 01/19/25 12:28 Insulin Aspart Per Unit Charge SC 02/17/25 07:14 3 units ACHS [facility] Administration Insulin Glargine 5 units 01/14/25 09:26 01/19/25 07:50 Lantus Per Unit Charge SQ 02/13/25 09:25 5 units DAILY [facility] Administration Losartan Potassium 25 mg 01/16/25 09:00 01/19/25 07:57 Losartan Potassium 25 Mg Tab PO 02/15/25 08:59 25 mg DAILY [facility] Administration Metoprolol Tartrate 25 mg 01/16/25 21:00 01/19/25 07:57 Metoprolol Tartrate 25 Mg Tab PO 02/15/25 20:59 25 mg BID [facility] Administration Miscellaneous 1 each 01/15/25 08:59 01/19/25 08:02 Remove Nicoderm Patch N/A 02/14/25 08:58 1 each DAILY@0859 [facility] Administration Multivitamins 1 tab 01/14/25 09:00 01/19/25 07:59 Multivitamin Tab PO 02/13/25 08:59 1 tab DAILY [facility] Administration Nicotine 1 patch 01/14/25 10:15 01/19/25 07:52 Nicotine 14 Mg/24 Hr Patch TD 02/13/25 10:14 1 patch QAM [facility] Administration Potassium Chloride 40 meq 01/16/25 07:40 01/19/25 12:29 Potassium Chloride 20 Meq/15 Ml Udc PO 02/15/25 07:39 40 meq TID [facility] Administration Prednisone 10 mg 01/14/25 09:00 01/19/25 07:59 Prednisone 10 Mg Tablet PO 02/13/25 08:59 10 mg DAILY [facility] Administration Spironolactone 12.5 mg 01/15/25 09:00 01/19/25 07:59 Spironolactone 12.5 Mg Tab PO 02/14/25 08:59 12.5 mg DAILY [facility] Administration PG Care Time/CCT Total # of Minutes Spent Total Time Spent with Patient: Total time spent is greater than 50% in coordination of care (as documented) at patient's floor/unit and/or counseling patient: Coding Level of Care Code 38824 SUB INP/OBS CARE 3/50MIN Diagnoses Non-STEMI (non-ST elevated myocardial infarction) I21.4 Diabetes mellitus type 2 with complications E11.8 Acute bronchitis J20.9 Rheumatoid arthritis M06.9 Acute heart failure with mildly reduced ejection fraction (HFmrEF, 41-49%) I50.21 Reactive airway disease J45.909 Febrile illness, acute R50.9 Pulmonary hypertension I27.20 HTN (hypertension) I10
[2025-01-19 14:27] VITALS: BP 108/69; PULSE 80
[2025-01-19] MEDS ORDERED: RANOLAZINE 500 MG ER TAB PO SCH (21:00)
[2025-01-20] MEDS ORDERED: METOPROLOL SUCC 25MG EXT REL TAB PO SCH (09:00)
== END 2025-01-19 18:41 | disposition home or self-care (01) | DRG 280 ==
LOC: ED 03:04 → 4W 05:53 → SUATTDRO 05:53 → 4W 08:24 → 2S 01-17 18:24